=== PATIENT | female | born 1985 | race Caucasian/White ===

== ENCOUNTER 2017-07-06 12:02 | Inpatient (IN) | payer OTHER, SELFPAY ==
[2017-07-06 12:03] VITALS: BP 98/67; PULSE 128; RESP 16; TEMP 38.3; O2SAT 99; BMI 26.6
--- NOTE | 2017-07-06 12:28 | CT_ITS ---
STUDY: CT SOFT TISSUE NECK WITH CONTRAST REASON FOR EXAM: Female, 31 years old. Pharyngitis, dizziness negative for strep sore throat RADIATION DOSAGE (If Supplied By Facility): CTDIvol = ( 18.63 ) mGy, DLP = ( 553.65 ) mGycm TECHNIQUE: The patient was scanned in a multi-detector CT scanner. High resolution transaxial imaging was performed following intravenous administration of 75 ml of Isovue 370 contrast material. Sagittal and coronal images were reconstructed. Individualized dose optimization techniques were used for this CT. COMPARISON: None. FINDINGS: Normal bilateral parotid glands. Normal bilateral [employer] spaces. Normal bilateral parapharyngeal spaces. There is enlargement of the bilateral jugular digastric lymph nodes on the right side measuring 2.2 x 1.4 cm on the left side measuring 1.5 x 1.3 cm. There is hypertrophy of the lingual tonsils. Normal visualized nasopharynx. Normal retropharyngeal space. Normal perivertebral space. There is an enlarged appearance of the bilateral tonsils including the uvula. There is a vague focus of low attenuation within the right side of the partial tonsils without significant enhancement that may represent a small rounded glandular space versus early developing abscess. The tonsils are fairly symmetric. The visualized tongue, tongue base and oropharynx are normal. There are a few nonspecific small cervical space lymph nodes. Normal epiglottis, bilateral vallecula and hypopharynx. The pre-epiglottic and paraglottic adipose spaces are normal. Normal visualized bilateral piriform sinuses, aryepiglottic folds, vocal cords, and arytenoid-cricoid articulations. Normal subglottic trachea. Normal bilateral lobes of the thyroid gland. Normal visualized pulmonary apices. Normal visualized paranasal sinuses. Normal visualized cervical spine. CT/Soft Tissue Neck WITH Contrast IMPRESSION: Findings are consistent with bilateral tonsillitis with possible small developing abscess measuring 4.6 mm on the right side. There is reactive appearing lymphadenopathy. Electronically Signed: Brittani Bullock MD at 14:14 EST Tel , Service support ,
[2017-07-06] MEDS: Ketorolac 30 MG/ML Syringe IV (12:48)
[2017-07-06] MEDS: 0.9% Normal Saline 1,000 ML 999 ML IV (12:48)
[2017-07-06 12:59] LABS: Hematocrit 40.3 % (37-47); Hemoglobin 13.5 g/dl (12.0-15.0); Mean Corp Hgb Conc 33.5 g/gl (32-36); Mean Corpuscular Volume 89.6 fL (81-99); Mean Platelet Vol. 9.8 fl (6.2-12.0); Platelet Count 237 K/mm3 (150-450); RBC Distribution Width CV 13.5 % (11.6-14.6)
[2017-07-06 13:00] LABS: Scan Indicated on CBC? Y/N NO
[2017-07-06 13:11] LABS: Anion Gap 7 (5-15); BUN 7 mg/dL (7-18); BUN/Creat Ratio 8.5 RATIO (10-20); Calcium,Total 8.7 mg/dL (8.5-10.1); Chloride 102 mmol/L (98-107); Creatinine, Serum 0.83 mg/dL (0.55-1.02); EST Glomerular Filtration Rate 85 mL/min (>60); Est Glom Filt Rate - Afr Amer 103 mL/min (>60); Estimated Creatinine Clearance 91.94 ml/min; Glucose 98 mg/dL (74-106); Potassium 3.4 mmol/L (3.5-5.1); Sodium Level 136 mmol/L (136-145)
[2017-07-06 13:20] LABS: Pregnancy, Serum, hCG Quali. NEGATIVE Negative (0-9 Nonpreg)
[2017-07-06 13:43] LABS: Internal QC Validated? YES +Cl - CLEAR BKGD; Monotest Negative (Negative)
--- NOTE | 2017-07-06 15:09 | ED.VISSUMM ---
- ER Visit Summary Date of Service: 07/06/17 Chief Complaint: Sore throat History of Present Illness: The patient is a 31 F who presents with a sore throat. It began yesterday. She also complains of fever and chills. No congestion or rhinorrhea. She does complain of muscle aches and joint aches. She states she has a stiff neck but I can move it. Was initially seen at the [facility]. She had a negative rapid strep. Given her tachycardia she was advised to be evaluated here in the emergency department. Physical Examination: T- 100.9 blood pressure 98/67 heart rate 128 respiratory rate 16 Patient does have posterior oropharyngeal erythema with bilateral tonsillar enlargement bilateral exudates bilateral erythema. No uvular deviation. No trismus. Normal voice. Fine heart regular rhythm tachycardia Lungs are clear Abdomen soft Neck supple no meningismus Test Results: Laboratory studies notable for white blood cell count 22,000. negative. [place] screen negative. CT of the soft tissue of the neck shows bilateral tonsillitis and a small developing 4.6 mm right peritonsillar abscess. Emergency Department Course and Treatment: Patient was treated with IV fluids and Toradol. At the time of this dictation lactic acid and blood cultures are currently pending. IV Unasyn has been ordered as well. I did speak to Dr. Avalos will see the patient in consult and patient will be admitted to the hospitalist service. Treatment Plan: [] Disposition: Admit Impression: Peritonsillar abscess Pharyngitis This note was generated with [employer] dictation software. It may contain incorrect words, spelling, and punctuation that were not noted in review of the chart prior to signing ED Disposition - Plan for ED Patient: Chief Complaint: Sore Throat Referrals: Care Physician,No Primary [Primary Care Provider] -
[2017-07-06 15:10] VITALS: BP 112/74; PULSE 104; RESP 15; O2SAT 99
[2017-07-06 15:11] VITALS: TEMP 36.9
--- NOTE | 2017-07-06 15:12 | ED.DCSUM_ITS ---
- ER Visit Summary Date of Service: 07/06/17 Chief Complaint: Sore throat History of Present Illness: The patient is a 31 F who presents with a sore throat. It began yesterday. She also complains of fever and chills. No congestion or rhinorrhea. She does complain of muscle aches and joint aches. She states she has a stiff neck but I can move it. Was initially seen at the [facility]. She had a negative rapid strep. Given her tachycardia she was advised to be evaluated here in the emergency department. Physical Examination: T- 100.9 blood pressure 98/67 heart rate 128 respiratory rate 16 Patient does have posterior oropharyngeal erythema with bilateral tonsillar enlargement bilateral exudates bilateral erythema. No uvular deviation. No trismus. Normal voice. Fine heart regular rhythm tachycardia Lungs are clear Abdomen soft Neck supple no meningismus Test Results: Laboratory studies notable for white blood cell count 22,000. negative. [place] screen negative. CT of the soft tissue of the neck shows bilateral tonsillitis and a small developing 4.6 mm right peritonsillar abscess. Emergency Department Course and Treatment: Patient was treated with IV fluids and Toradol. At the time of this dictation lactic acid and blood cultures are currently pending. IV Unasyn has been ordered as well. I did speak to Dr. Avalos will see the patient in consult and patient will be admitted to the hospitalist service. Treatment Plan: [] Disposition: Admit Impression: Peritonsillar abscess Pharyngitis This note was generated with [employer] dictation software. It may contain incorrect words, spelling, and punctuation that were not noted in review of the chart prior to signing ED Disposition - Plan for ED Patient: Chief Complaint: Sore Throat Referrals: Care Physician,No Primary [Primary Care Provider] -
--- NOTE | 2017-07-06 15:59 | NURSING ---
207 PERITONSILAR ABCESS, TACHYCARDIA TERELETSKY
[2017-07-06 16:00] VITALS: BMI 26.6
[2017-07-06 16:15] VITALS: BMI 26.3
[2017-07-06 16:18] VITALS: BP 106/64; PULSE 98; RESP 16; TEMP 37.2; O2SAT 98
[2017-07-06] MEDS: 0.9% Normal Saline 1,000 ML 150 ML IV ×2 (17:10→22:35)
[2017-07-06 17:21] LABS: Lactic Acid 0.9 mmol/L (0.4-2.0)
[2017-07-06] MEDS: HYDROcodone Bitartrate/Apap 5/325 Tablet PO (17:48)
[2017-07-06 19:45] VITALS: BP 118/67; PULSE 93; RESP 16; TEMP 37.2; O2SAT 98
--- NOTE | 2017-07-06 21:51 | PCM.HP.STD ---
Problem List (1) Tachycardia Status: Acute (2) Lightheadedness Status: Acute History of Present Illness Date of Admission: 07/06/17 Chief Complaint: Tachycardia, lightheadedness The patient is a 31 year old F seen in the emergency room at [facility] with complaints of sore throat, malaise, and lightheadedness. She is noted to be tachycardic and rapid strep test was negative for tonsillitis and the patient was referred to the emergency room for further evaluation. On examination, patient was noted to have enlarged tonsils which were reddened along with evidence of exudate, she was noted to be tachycardic with a pulse rate of 130, patient denied any purulent sputum production but she stated that she had chills and fever up to 102 degrees today. She also stated that she felt lightheaded and had generalized body aches. Patient denied any purulent sputum production or cough. Workup in the emergency room included labs which showed an elevated white blood cell count at 22,000, potassium was 3.4, CT of the neck was obtained which showed evidence of tonsillitis and also a developing right peritonsillar abscess of 4.6 mm. Patient was given IV Unasyn in the emergency room, ENT was contacted and will follow up with the patient after admission, patient was admitted for peritonsillar abscess and tachycardia. 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 Denies: Anorexia, Night Sweats, Weakness, Weight Change, Fatigue Eyes: Denies: Blurred vision, Cataracts, Conjunctivae Inflammation, Double vision, Drainage HEENT: Reports: Sore Throat. Denies: Difficulty Hearing, Difficulty Swallowing, Dysphasia, Ear Pain, Eye Pain, Head Aches, Hearing Changes, Nasal bleeding, Nasal Congestion, Sinus Congestion Cardiovascular: Reports: Light Headedness. Denies: Chest Pain, Claudication, Chest Pressure, Chest Tightness, Edema, Heaviness, Palpitations Respiratory: Denies: Cough, Hemoptysis, Pleuritic Pain, Shortness of Breath, Shortness of breath at rest, Shortness of breath upon exertion, Sputum production, Wheezing Gastrointestinal: Denies: Abdominal Pain, Constipation, Diarrhea, Hematemesis, Hematochezia, Nausea, Melena, Vomiting Genitourinary: Denies: Dysuria, Frequency, Hematuria, Hesitancy, Urgency Gynecological: Denies: Breast symptoms Musculoskeletal: Denies: Back Pain, Foot Pain, Hand Pain, Joint Pain, Joint stiffness, Joint swelling, Joint Tenderness, Leg Pain, Neck Pain, Shoulder Pain Skin: Denies: Dryness, Jaundice, Pruritis, Rash Neurological: Denies: Balance problems, Blurred vision, Double vision, Slurred speech, Difficulty swallowing, Focal weakness, Headaches, Incoordination, Numbness, Tingling Psychiatric: Denies: Anxiety, Depression, Homicidal Ideations, Suicidal Ideations Endocrine: Denies: Change in Body Habitus, Heat/ Cold Intolerance, Polydipsia, Polyuria Hematologic/ Lymphatic: Denies: Adenopathy, Anemia, Easy Bruising, Easy Bleeding, Petechiae, Purpura VTE Information - Inpt Only VTE Present on Admission: No VTE Mechan Device Prophylaxis: None VTE Pharm Prophylaxis ordered?: No Reason prophylaxis not ordered:: Treatment Not Indicated - low risk for VTE Patient Problems: Active and Suspected Problems Tachycardia (Acute) Lightheadedness (Acute) - Physical Exam General: Alert, Oriented x3, Cooperative, No apparent distress, Well developed, Well nourished HEENT: Atraumatic, PERRLA, EOMI, Normocephalic Oral: Moist Mucosa, - - Enlarged tonsils with exudate Neck: Supple, No JVD, Negative Carotid Bruits, No Nuchal Rigidity, Trachea Midline, Thyroid Normal Size and Texture Lungs: Clear to auscultation, Normal air movement, No rhonchi, No wheeze, No rales Cardiovascular: Regular rate, Regular Rhythm, Normal S1, Normal S2, No murmurs, No Ectopic Activity, PMI Normal, No rub noted, Tachycardic Abdomen: Bowel Sounds Present, Soft, Non Tender, Non-Distended, No hernias noted Extremities: No clubbing, No cyanosis, No edema, Capillary Refill Less than 3 Seconds Skin: No rashes, No breakdown Musculoskeletal: No Tenderness to Palpation of Joints or Extremities, No Muscle Wasting Neurological: Cranial nerves II-XII grossly intact, Neuro grossly intact, Muscle tone normal, Sensory exam intact to light touch and pain, Coordination normal Psych/Mental Status: Normal Affect, Appropriate, Alert and oriented to time, place, person, mood and affect Vital Signs Temp Pulse Resp BP Pulse Ox 98.9 F 98 16 106/64 98 07/06/17 16:18 07/06/17 16:18 07/06/17 16:18 07/06/17 16:18 07/06/17 16:18 Oxygen Delivery Method Room Air Weight: 73.936 kg Body Mass Index (BMI) 26.3 Intake and Output for Last 24 Hours 07/04/17 07/05/17 07/06/17 23:59 23:59 23:59 Intake Total 150 / 150 Balance 150 / 150 Assessment/Plan Active and Suspected Problems Tachycardia (Acute) Lightheadedness (Acute) #1 right peritonsillar abscess-patient will be admitted to [facility], she will be given IV fluids, IV Unasyn, she will be seen by ENT #2 severe tonsillitis-most probably is strep, throat culture was obtained in the emergency room, treatment as above #3 hypokalemia-patient will be given oral potassium and BMP will be rechecked #4 tachycardia-secondary to acute severe tonsillitis with right peritonsillar abscess-patient will be given IV fluids and monitored without telemetry Code Visit Inpatient E&M: 08500 Init Hosp L3
--- NOTE | 2017-07-06 22:01 | HP.PCM_ITS ---
Problem List (1) Tachycardia Status: Acute (2) Lightheadedness Status: Acute History of Present Illness Date of Admission: 07/06/17 Chief Complaint: Tachycardia, lightheadedness The patient is a 31 year old F seen in the emergency room at [facility] with complaints of sore throat , malaise, and lightheadedness. She is noted to be tachycardic and rapid strep test was negative for tonsillitis and the patient was referred to the emergency room for further evaluation. On examination, patient was noted to have enlarged tonsils which were reddened along with evidence of exudate, she was noted to be tachycardic with a pulse rate of 130, patient denied any purulent sputum production but she stated that she had chills and fever up to 102 degrees today. She also stated that she felt lightheaded and had generalized body aches. Patient denied any purulent sputum production or cough. Workup in the emergency room included labs which showed an elevated white blood cell count at 22,000, potassium was 3.4, CT of the neck was obtained which showed evidence of tonsillitis and also a developing right peritonsillar abscess of 4.6 mm. Patient was given IV Unasyn in the emergency room, ENT was contacted and will follow up with the patient after admission, patient was admitted for peritonsillar abscess and tachycardia. 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 Denies: Anorexia, Night Sweats, Weakness, Weight Change, Fatigue Eyes: Denies: Blurred vision, Cataracts, Conjunctivae Inflammation, Double vision, Drainage HEENT: Reports: Sore Throat. Denies: Difficulty Hearing, Difficulty Swallowing , Dysphasia, Ear Pain, Eye Pain, Head Aches, Hearing Changes, Nasal bleeding, Nasal Congestion, Sinus Congestion Cardiovascular: Reports: Light Headedness. Denies: Chest Pain, Claudication, Chest Pressure, Chest Tightness, Edema, Heaviness, Palpitations Respiratory: Denies: Cough, Hemoptysis, Pleuritic Pain, Shortness of Breath, Shortness of breath at rest, Shortness of breath upon exertion, Sputum production, Wheezing Gastrointestinal: Denies: Abdominal Pain, Constipation, Diarrhea, Hematemesis, Hematochezia, Nausea, Melena, Vomiting Genitourinary: Denies: Dysuria, Frequency, Hematuria, Hesitancy, Urgency Gynecological: Denies: Breast symptoms Musculoskeletal: Denies: Back Pain, Foot Pain, Hand Pain, Joint Pain, Joint stiffness, Joint swelling, Joint Tenderness, Leg Pain, Neck Pain, Shoulder Pain Skin: Denies: Dryness, Jaundice, Pruritis, Rash Neurological: Denies: Balance problems, Blurred vision, Double vision, Slurred speech, Difficulty swallowing, Focal weakness, Headaches, Incoordination, Numbness, Tingling Psychiatric: Denies: Anxiety, Depression, Homicidal Ideations, Suicidal Ideations Endocrine: Denies: Change in Body Habitus, Heat/ Cold Intolerance, Polydipsia, Polyuria Hematologic/ Lymphatic: Denies: Adenopathy, Anemia, Easy Bruising, Easy Bleeding , Petechiae, Purpura VTE Information - Inpt Only VTE Present on Admission: No VTE Mechan Device Prophylaxis: None VTE Pharm Prophylaxis ordered?: No Reason prophylaxis not ordered:: Treatment Not Indicated - low risk for VTE Patient Problems: Active and Suspected Problems Tachycardia (Acute) Lightheadedness (Acute) - Physical Exam General: Alert, Oriented x3, Cooperative, No apparent distress, Well developed, Well nourished HEENT: Atraumatic, PERRLA, EOMI, Normocephalic Oral: Moist Mucosa, - - Enlarged tonsils with exudate Neck: Supple, No JVD, Negative Carotid Bruits, No Nuchal Rigidity, Trachea Midline, Thyroid Normal Size and Texture Lungs: Clear to auscultation, Normal air movement, No rhonchi, No wheeze, No rales Cardiovascular: Regular rate, Regular Rhythm, Normal S1, Normal S2, No murmurs, No Ectopic Activity, PMI Normal, No rub noted, Tachycardic Abdomen: Bowel Sounds Present, Soft, Non Tender, Non-Distended, No hernias noted Extremities: No clubbing, No cyanosis, No edema, Capillary Refill Less than 3 Seconds Skin: No rashes, No breakdown Musculoskeletal: No Tenderness to Palpation of Joints or Extremities, No Muscle Wasting Neurological: Cranial nerves II-XII grossly intact, Neuro grossly intact, Muscle tone normal, Sensory exam intact to light touch and pain, Coordination normal Psych/Mental Status: Normal Affect, Appropriate, Alert and oriented to time, place, person, mood and affect Vital Signs Temp Pulse Resp BP Pulse Ox 98.9 F 98 16 106/64 98 07/06/17 16:18 07/06/17 16:18 07/06/17 16:18 07/06/17 16:18 07/06/17 16:18 Oxygen Delivery Method Room Air Weight: 73.936 kg Body Mass Index (BMI) 26.3 Intake and Output for Last 24 Hours 07/04/17 07/05/17 07/06/17 23:59 23:59 23:59 Intake Total 150 / 150 Balance 150 / 150 Assessment/Plan Active and Suspected Problems Tachycardia (Acute) Lightheadedness (Acute) #1 right peritonsillar abscess-patient will be admitted to [facility], she will be given IV fluids, IV Unasyn, she will be seen by ENT #2 severe tonsillitis-most probably is strep, throat culture was obtained in the emergency room, treatment as above #3 hypokalemia-patient will be given oral potassium and BMP will be rechecked #4 tachycardia-secondary to acute severe tonsillitis with right peritonsillar abscess-patient will be given IV fluids and monitored without telemetry Code Visit Inpatient E&M: 45675 Init Hosp L3
[2017-07-06 23:30] VITALS: BP 112/70; PULSE 104; RESP 16; TEMP 37.8; O2SAT 99
[2017-07-07] MEDS: HYDROcodone Bitartrate/Apap 5/325 Tablet PO ×4 (00:41→19:58)
[2017-07-07 00:42] VITALS: TEMP 38.1
[2017-07-07 05:24] VITALS: BP 108/62; PULSE 106; RESP 16; TEMP 37.6; O2SAT 99
[2017-07-07] MEDS: 0.9% Normal Saline 1,000 ML 150 ML IV ×3 (05:26→21:18)
[2017-07-07 06:58] LABS: Absolute Lymphocyte Count 1.45 X10^3/ul (0.83-4.51); Basophil# 0.02 X10^3/uL; Basophil% 0.1 % (0-1); Eosinophil# 0.04 X10^3/uL; Eosinophils% 0.2 % (0-5); Hematocrit 35.6 % (37-47); Hemoglobin 11.8 g/dl (12.0-15.0); Lymphocyte # 1.45 X10^3/ul (4.0); Lymphocyte % 7.5 % (19-41); Mean Corp Hgb Conc 33.1 g/gl (32-36); Mean Corpuscular Hgb 30.6 pg (27.0-32.0); Mean Corpuscular Volume 92.5 fL (81-99); Mean Platelet Vol. 10.1 fl (6.2-12.0); Monocyte# 1.67 X10^3/uL; Monocyte% 8.7 % (0-10); Neutrophil % 83.2 % (47-70); Platelet Count 178 K/mm3 (150-450); RBC Distribution Width CV 13.9 % (11.6-14.6); RBC Distribution Width SD 46.8 fl (35.1-43.9); Red Blood Count 3.85 M/mm3 (4.2-5.4); White Blood Count 19.2 K/mm3 (4.4-11.0)
[2017-07-07 07:01] LABS: Differential Indicated SCAN CRITERIA MET; POSITIVE COUNT NO; POSITIVE DIFFERENTIAL YES; POSITIVE MORPHOLOGY NO
[2017-07-07 07:15] LABS: Anion Gap 6 (5-15); BUN 6 mg/dL (7-18); BUN/Creat Ratio 9.3 RATIO (10-20); Calcium,Total 7.9 mg/dL (8.5-10.1); Chloride 106 mmol/L (98-107); Creatinine, Serum 0.64 mg/dL (0.55-1.02); EST Glomerular Filtration Rate 114 mL/min (>60); Est Glom Filt Rate - Afr Amer 138 mL/min (>60); Estimated Creatinine Clearance 119.23 ml/min; Glucose 91 mg/dL (74-106); Potassium 3.8 mmol/L (3.5-5.1); Sodium Level 139 mmol/L (136-145)
[2017-07-07 08:09] VITALS: BP 104/62; PULSE 99; RESP 18; TEMP 37.5; O2SAT 97
[2017-07-07] MEDS: Acetaminophen 325 MG Tablet 650 MG PO ×2 (11:23→17:23)
--- NOTE | 2017-07-07 12:11 | PCM.PN.HOSP ---
Patient Problems: Active and Suspected Problems Tachycardia (Acute) Lightheadedness (Acute) Subjective: Still with a sore throat and trouble swallowing. No shortness of breath. Vitals/I&O's: Vital Signs Temp Pulse Resp BP Pulse Ox 37.5 C H 99 18 104/62 97 07/07/17 08:09 07/07/17 08:09 07/07/17 08:09 07/07/17 08:09 07/07/17 08:09 Oxygen Delivery Method Room Air Weight: 73.936 kg Body Mass Index (BMI) 26.3 Intake and Output for Last 24 Hours 07/05/17 07/06/17 07/07/17 23:59 23:59 23:59 Intake Total 1212 / 1212 1247 / 1247 Balance 1212 / 1212 1247 / 1247 General: Alert, Cooperative, No apparent distress HEENT: Atraumatic, Normocephalic Neck: Thyroid Normal Size and Texture, - - Tender left submandibular lymphadenopathy Lungs: Clear to auscultation, Normal air movement, No rhonchi, No wheeze Cardiovascular: Regular rate, Regular Rhythm, Normal S1, Normal S2 Abdomen: Bowel Sounds Present, Soft, Non Tender, Non-Distended, No Hepato-splenomegaly Extremities: No edema, No Calf Tenderness Laboratory Results 07/07/17 05:50: WBC 19.2 H, RBC 3.85 L, Hgb 11.8 L, Hct 35.6 L, MCV 92.5, MCH 30.6, MCHC 33.1, RDW 13.9, RDW Differential 46.8 H, Plt Count 178, MPV 10.1, Immature Gran % (Auto) 0.300, Neut % (Auto) 83.2 H, Lymph % (Auto) 7.5 L, [place] % (Auto) 8.7, Eos % (Auto) 0.2, Baso % (Auto) 0.1, Absolute Neuts (auto) 16.0 H, Absolute Lymphs (auto) 1.45, Total Counted Not Reportable 07/07/17 05:50: Sodium Cancelled, Potassium Cancelled, Chloride Cancelled, Carbon Dioxide Cancelled, Anion Gap Cancelled, BUN Cancelled, Creatinine Cancelled, Estim Creat Clear Calc Cancelled, Est GFR (MDRD) Af Amer Cancelled, Est GFR (MDRD) Non-Af Cancelled, BUN/Creatinine Ratio Cancelled, Glucose Cancelled, Calcium Cancelled 07/07/17 06:45: Sodium 139, Potassium 3.8, Chloride 106, Carbon Dioxide 27.0, Anion Gap 6, BUN 6 L, Creatinine 0.64, Estim Creat Clear Calc 119.23, Est GFR (MDRD) Af Amer 138, Est GFR (MDRD) Non-Af 114, BUN/Creatinine Ratio 9.3 L, Glucose 91, Calcium 7.9 L Current Medications Acetaminophen (Tylenol) 650 mg PO Q6H PRN PRN PRN Reason: Mild Pain (1-3)/Temp > 100.7 F Last Admin: 07/07/17 11:23 Dose: 650 mg Hydrocodone Bitart/Acetaminophen ([place] 5mg-325mg) 2 tablet PO Q6H PRN PRN PRN Reason: SEVERE PAIN (6-10/10) Last Admin: 07/07/17 07:21 Dose: 2 tablet Sodium Chloride () 1,000 mls @ 150 mls/hr IV .[id number] [facility] Last Admin: 07/07/17 05:26 Dose: 150 mls/hr Ampicillin Sodium/Sulbactam (Sodium 3 gm/ Sodium Chloride) 112 mls @ 150 mls/hr IV Q6 [facility] Last Admin: 07/07/17 11:24 Dose: 150 mls/hr Nutritional Formula (Lactose Free) (Ensure Enlive) 120 ml PO 4X/DAY [facility] Last Admin: 07/07/17 08:11 Dose: 120 ml Sodium Chloride () 5 - 30 ml IV UD PRN PRN Reason: SALINE FLUSH Assessment/Plan Active and Suspected Problems Tachycardia (Acute) Lightheadedness (Acute) 1. Posterior pharyngeal abscess Secondary to pharyngitis. Monospot and throat culture pending Continue with Unasyn Otolaryngology to evaluate. No evidence of airway compromise at this time. 2. Sepsis On admission Clinically improving. Code Visit Inpatient E&M: 69395 Subs Hosp L2
--- NOTE | 2017-07-07 12:15 | PN_ITS ---
Patient Problems: Active and Suspected Problems Tachycardia (Acute) Lightheadedness (Acute) Subjective: Still with a sore throat and trouble swallowing. No shortness of breath. Vitals/I&O's: Vital Signs Temp Pulse Resp BP Pulse Ox 37.5 C H 99 18 104/62 97 07/07/17 08:09 07/07/17 08:09 07/07/17 08:09 07/07/17 08:09 07/07/17 08:09 Oxygen Delivery Method Room Air Weight: 73.936 kg Body Mass Index (BMI) 26.3 Intake and Output for Last 24 Hours 07/05/17 07/06/17 07/07/17 23:59 23:59 23:59 Intake Total 1212 / 1212 1247 / 1247 Balance 1212 / 1212 1247 / 1247 General: Alert, Cooperative, No apparent distress HEENT: Atraumatic, Normocephalic Neck: Thyroid Normal Size and Texture, - - Tender left submandibular lymphadenopathy Lungs: Clear to auscultation, Normal air movement, No rhonchi, No wheeze Cardiovascular: Regular rate, Regular Rhythm, Normal S1, Normal S2 Abdomen: Bowel Sounds Present, Soft, Non Tender, Non-Distended, No Hepato- splenomegaly Extremities: No edema, No Calf Tenderness Laboratory Results 07/07/17 05:50: WBC 19.2 H, RBC 3.85 L, Hgb 11.8 L, Hct 35.6 L, MCV 92.5, MCH 30.6, MCHC 33.1, RDW 13.9, RDW Differential 46.8 H, Plt Count 178, MPV 10.1, Immature Gran % (Auto) 0.300, Neut % (Auto) 83.2 H, Lymph % (Auto) 7.5 L, Adams % (Auto) 8.7, Eos % (Auto) 0.2, Baso % (Auto) 0.1, Absolute Neuts (auto) 16.0 H , Absolute Lymphs (auto) 1.45, Total Counted Not Reportable 07/07/17 05:50: Sodium Cancelled, Potassium Cancelled, Chloride Cancelled, Carbon Dioxide Cancelled, Anion Gap Cancelled, BUN Cancelled, Creatinine Cancelled, Estim Creat Clear Calc Cancelled, Est GFR (MDRD) Af Amer Cancelled, Est GFR (MDRD) Non-Af Cancelled, BUN/Creatinine Ratio Cancelled, Glucose Cancelled, Calcium Cancelled 07/07/17 06:45: Sodium 139, Potassium 3.8, Chloride 106, Carbon Dioxide 27.0, Anion Gap 6, BUN 6 L, Creatinine 0.64, Estim Creat Clear Calc 119.23, Est GFR ( MDRD) Af Amer 138, Est GFR (MDRD) Non-Af 114, BUN/Creatinine Ratio 9.3 L, Glucose 91, Calcium 7.9 L Current Medications Acetaminophen (Tylenol) 650 mg PO Q6H PRN PRN PRN Reason: Mild Pain (1-3)/Temp > 100.7 F Last Admin: 07/07/17 11:23 Dose: 650 mg Hydrocodone Bitart/Acetaminophen ([place] 5mg-325mg) 2 tablet PO Q6H PRN PRN PRN Reason: SEVERE PAIN (6-10/10) Last Admin: 07/07/17 07:21 Dose: 2 tablet Sodium Chloride () 1,000 mls @ 150 mls/hr IV .Q6H40M [facility] Last Admin: 07/07/17 05:26 Dose: 150 mls/hr Ampicillin Sodium/Sulbactam (Sodium 3 gm/ Sodium Chloride) 112 mls @ 150 mls/ hr IV Q6 [facility] Last Admin: 07/07/17 11:24 Dose: 150 mls/hr Nutritional Formula (Lactose Free) (Ensure Enlive) 120 ml PO 4X/DAY [facility] Last Admin: 07/07/17 08:11 Dose: 120 ml Sodium Chloride () 5 - 30 ml IV UD PRN PRN Reason: SALINE FLUSH Assessment/Plan Active and Suspected Problems Tachycardia (Acute) Lightheadedness (Acute) 1. Posterior pharyngeal abscess * Secondary to pharyngitis. * Monospot and throat culture pending * Continue with Unasyn * Otolaryngology to evaluate. * No evidence of airway compromise at this time. 2. Sepsis * On admission * Clinically improving. Code Visit Inpatient E&M: 55092 Subs Hosp L2
--- NOTE | 2017-07-07 13:01 | CASEMGMT ---
PASQUALE CM chart review: peritonsilr abcess. Continues on IVF, IV antibiotics. Noted no PCP listed. [facility] innetwork list given to pt. She will f/u at home. Pt states she will have transportation to physician visits and has prescription coverage.No dc needs identified @ this time. Trisha OLIVASN RN ACM
[2017-07-07 13:57] VITALS: BP 102/59; PULSE 91; RESP 18; TEMP 36.9; O2SAT 100
--- NOTE | 2017-07-07 15:04 | CON.PCM_ITS ---
Problem List (1) Acute bacterial tonsillitis Status: Acute Reason for Consult Date of Consultation: 07/07/17 Reason for Consultation: acute tonsillitis, abscess History of Present Illness: The patient is a 31 year old F who presented to the ER with cute sore throat and progressive dysphagia. She was found to have exudative tonsillitis with an negative rapid Strep. She reports progressively worsening episodes of tonsillitis over the last several year and reports 6 or more occurrences year. Tis is the worst episode that she has had. She denies sick contacts in the home. She describes her throat adiel as severe, limiting her tolerance of oral intake, but is able to swallow her own secretions. She denies shortness of breath or hoarseness. She reports that her pain is worse today, but relieved with pain medication at the bedside. She has had a sore throat for about 3 days now.[] Past Medical History Allergies No Known Allergies Allergy (Verified 05/10/16 11:41) Home Medications: Ambulatory Orders Medication Instructions Recorded NK [NK] 07/06/17 Surgical History: no surgical history Psychiatric History: No pertinent psych hx [employer] History: No pertinent [employer] history Lives: With Family Smoking Status: Never smoker Tobacco Use: Non-smoker Alcohol: None Drugs: None - *Family History Maternal History Items: No pertinent history Paternal History Items: No pertinent history Review of Systems Constitutional: Reports: Fever, Malaise. Denies: Chills, Night Sweats Eyes: Denies: Blurred vision, Cataracts, Double vision, Pain, Vision Change HEENT: Reports: Difficulty Swallowing, Sore Throat. Denies: Difficulty Hearing , Ear Pain, Eye Pain, Hard of Hearing, Nasal Congestion, Sinus Drainage Cardiovascular: Denies: Chest Pain, Chest Pressure, Chest Tightness Respiratory: Denies: Cough, Hemoptysis, Shortness of breath upon exertion Gastrointestinal: Denies: Abdominal Pain, Diarrhea Genitourinary: Denies: Dysuria Musculoskeletal: Reports: Neck Pain Skin: Denies: Dryness, Lesions, Pruritis Neurological: Reports: Difficulty swallowing. Denies: Balance problems, Blurred vision Psychiatric: Denies: Anxiety, Depression Hematologic/ Lymphatic: Reports: Adenopathy. Denies: Easy Bruising, Easy Bleeding Patient Problems: Active and Suspected Problems Tachycardia (Acute) Lightheadedness (Acute) Acute bacterial tonsillitis (Acute) - Physical Exam General: Alert, Oriented x3, Cooperative HEENT: Atraumatic, PERRLA, EOMI, Normocephalic, TM's Clear, EAC Clear Oral: Moist Mucosa, - - 4+ tonsiller ypertrophy with exudates, symmetric without bulging or fluid collection Neck: Trachea Midline, Thyroid Normal Size and Texture, - - tender bilateral adenopathy Lungs: Clear to auscultation, Normal air movement, No rhonchi, No wheeze Cardiovascular: Regular rate, Regular Rhythm Extremities: No clubbing, No cyanosis, No edema Skin: No rashes, No breakdown Lymphatic: Cervical Adenopathy Neurological: Cranial nerves II-XII grossly intact Psych/Mental Status: Normal Affect, Appropriate, Alert and oriented to time, place, person, mood and affect Vital Signs Temp Pulse Resp BP Pulse Ox 98.4 F 91 18 102/59 L 100 07/07/17 13:57 07/07/17 13:57 07/07/17 13:57 07/07/17 13:57 07/07/17 13:57 Oxygen Delivery Method Room Air Weight: 73.936 kg Body Mass Index (BMI) 26.3 Intake and Output for Last 24 Hours 07/05/17 07/06/17 07/07/17 23:59 23:59 23:59 Intake Total 1212 / 1212 1630 / 1630 Balance 1212 / 1212 1630 / 1630 Laboratory Tests Past 24 Hrs 07/07/17 07/07/17 07/07/17 05:50 05:50 06:45 WBC 19.2 H RBC 3.85 L Hgb 11.8 L Hct 35.6 L MCV 92.5 MCH 30.6 MCHC 33.1 RDW 13.9 RDW Differential 46.8 H Plt Count 178 MPV 10.1 Immature Gran % (Auto) 0.300 Neut % (Auto) 83.2 H Lymph % (Auto) 7.5 L [place] % (Auto) 8.7 Eos % (Auto) 0.2 Baso % (Auto) 0.1 Absolute Neuts (auto) 16.0 H Absolute Lymphs (auto) 1.45 Total Counted Not Reportable Sodium Cancelled 139 Potassium Cancelled 3.8 Chloride Cancelled 106 Carbon Dioxide Cancelled 27.0 Anion Gap Cancelled 6 BUN Cancelled 6 L Creatinine Cancelled 0.64 Estim Creat Clear Calc Cancelled 119.23 Est GFR (MDRD) Af Amer Cancelled 138 Est GFR (MDRD) Non-Af Cancelled 114 BUN/Creatinine Ratio Cancelled 9.3 L Glucose Cancelled 91 Calcium Cancelled 7.9 L Assessment/Plan Active and Suspected Problems Tachycardia (Acute) Lightheadedness (Acute) Acute bacterial tonsillitis (Acute) 31 year old female with frequent tonsillitis. Group A Strep positive on culture with CT showing very small abscess. Observation for clinical improvement on IV antibiotic is advised. I see no abscess amenable to bedside drainage at this time, but may appear through course of observation. I have discussed treatment options with medical management advised at this time, but if fails to improve, aspiration or tonsillectomy reviewed. Given her frequent complaints and worsening presentation, tonsillectomy as an outpatient is also discussed. I will continue to follow her hospital course for disposition and progress.
[2017-07-07 20:32] VITALS: BP 103/54; PULSE 89; RESP 18; TEMP 37.1; O2SAT 100
[2017-07-08] MEDS: HYDROcodone Bitartrate/Apap 5/325 Tablet PO ×2 (02:28→15:43)
[2017-07-08 02:33] VITALS: BP 97/38; PULSE 91; RESP 16; TEMP 36.8; O2SAT 99
[2017-07-08] MEDS: 0.9% Normal Saline 1,000 ML 150 ML IV ×2 (04:47→11:31)
[2017-07-08] MEDS: Ondansetron 4 MG/2 ML Vial IV ×3 (05:06→17:57)
[2017-07-08 09:13] VITALS: BP 104/60; PULSE 81; RESP 16; TEMP 36.9; O2SAT 99
[2017-07-08] MEDS: Acetaminophen 325 MG Tablet 650 MG PO (09:18)
--- NOTE | 2017-07-08 09:22 | PCM.PN.HOSP ---
Patient Problems: Active and Suspected Problems Tachycardia (Acute) Lightheadedness (Acute) Acute bacterial tonsillitis (Acute) Subjective: Feeling slightly better but still with trouble swallowing. No shortness of breath. Vitals/I&O's: Vital Signs Temp Pulse Resp BP Pulse Ox 36.9 C 81 16 104/60 99 07/08/17 09:13 07/08/17 09:13 07/08/17 09:13 07/08/17 09:13 07/08/17 09:13 Oxygen Delivery Method Room Air Weight: 73.936 kg Body Mass Index (BMI) 26.3 Intake and Output for Last 24 Hours 07/06/17 07/07/17 07/08/17 23:59 23:59 23:59 Intake Total 1212 / 1212 2390 / 2390 1892 189 Balance 1212 / 1212 2390 / 2390 1892 General: Alert, Cooperative, No apparent distress HEENT: Atraumatic, Normocephalic Oral: Moist Mucosa, No Gingival or Mucosal Lesions/ Ulcerations, - - Unable to visualize posterior pharynx Neck: - - biLateral tender submandibular lymphadenopathy Lungs: Clear to auscultation, Normal air movement, No rhonchi, No wheeze Cardiovascular: Regular rate, Regular Rhythm, Normal S1, Normal S2, No murmurs Abdomen: Bowel Sounds Present, Soft, Non Tender, Non-Distended, No Hepato-splenomegaly Extremities: No edema, No Calf Tenderness Psych/Mental Status: Normal Affect, Appropriate Current Medications Acetaminophen (Tylenol) 650 mg PO Q6H PRN PRN PRN Reason: Mild Pain (1-3)/Temp > 100.7 F Last Admin: 07/08/17 09:18 Dose: 650 mg Hydrocodone Bitart/Acetaminophen ([place] 5mg-325mg) 2 tablet PO Q6H PRN PRN PRN Reason: SEVERE PAIN (6-10/10) Last Admin: 07/08/17 02:28 Dose: 2 tablet Sodium Chloride () 1,000 mls @ 150 mls/hr IV .Q6H40M [facility] Last Admin: 07/08/17 04:47 Dose: 150 mls/hr Ampicillin Sodium/Sulbactam (Sodium 3 gm/ Sodium Chloride) 112 mls @ 150 mls/hr IV Q6 [facility] Last Admin: 07/08/17 05:06 Dose: 150 mls/hr Nutritional Formula (Lactose Free) (Ensure Enlive) 120 ml PO 4X/DAY [facility] Last Admin: 07/08/17 09:18 Dose: 120 ml Ondansetron HCl (Zofran) 4 mg IV Q6H PRN PRN PRN Reason: NAUSEA/VOMITING Last Admin: 07/08/17 05:06 Dose: 4 mg Sodium Chloride () 5 - 30 ml IV UD PRN PRN Reason: SALINE FLUSH Assessment/Plan Active and Suspected Problems Tachycardia (Acute) Lightheadedness (Acute) Acute bacterial tonsillitis (Acute) 1. Posterior pharyngeal abscess and pharyngitis Secondary to pharyngitis. Monospot and throat culture positive for group A strep Continue with Unasyn Otolaryngology to recommends conservative management at this time. No evidence of airway compromise at this time. 2. Sepsis On admission Clinically improving. This note was generated with [employer] dictation software. It may contain incorrect words, spelling, and punctuation that were not noted in checking the note before signing. Code Visit Inpatient E&M: 05493 Subs Hosp L2
[2017-07-08] MEDS: 0.9% NaCl Peripheral Flush Adult/Peds IV (11:27)
[2017-07-08 15:35] VITALS: BP 106/67; PULSE 84; RESP 16; TEMP 36.8; O2SAT 99
--- NOTE | 2017-07-08 17:39 | PCM.PROGNOTE ---
Patient Problems: Active and Suspected Problems Tachycardia (Acute) Lightheadedness (Acute) Acute bacterial tonsillitis (Acute) Subjective: She reports that her pain is improved and she is able to tolerate oral fluid intake today. She still has some right neck tenderness. She feels that she is ready to go home. Objective: Well appearing, taking in soft foods and fluids at bedside. - Physical Exam General: Alert, Oriented x3, Cooperative, No apparent distress HEENT: Atraumatic, PERRLA, EOMI, Normocephalic Oral: Moist Mucosa, - - tonsillar exudates reduced, tonsils 2+ in size without asymmetry or bulging Neck: Trachea Midline, Thyroid Normal Size and Texture, - - tender adenopathy on right, reduced from previous Lungs: Normal air movement Cardiovascular: Regular rate, Regular Rhythm Skin: No rashes, No breakdown Lymphatic: Cervical Adenopathy Psych/Mental Status: Normal Affect, Alert and oriented to time, place, person, mood and affect Vital Signs Temp Pulse Resp BP Pulse Ox 98.3 F 84 16 106/67 99 07/08/17 15:35 07/08/17 15:35 07/08/17 15:35 07/08/17 15:35 07/08/17 15:35 Oxygen Delivery Method Room Air Weight: 73.936 kg Body Mass Index (BMI) 26.3 Intake and Output for Last 24 Hours 07/06/17 07/07/17 07/08/17 23:59 23:59 23:59 Intake Total 1212 / 1212 2390 / 2390 2913 / 2913 Output Total 200 / 200 Balance 1212 / 1212 2390 / 2390 2713 / 2713 Assessment/Plan Active and Suspected Problems Tachycardia (Acute) Lightheadedness (Acute) Acute bacterial tonsillitis (Acute) She is showing a good response to medical management. We discussed that home going on oral antibiotic therapy is advised at this time. We also discussed the possibility of tonsillectomy given her frequent and worsening occurrences and that this is best done in a well state after her acute episode has resolved. She is agreeable to this plan and I would like to see her in the office in 10 days. She may call [phone] to schedule an appointment.
--- NOTE | 2017-07-08 18:06 | PCM.DC ---
- Discharge Diagnoses Current Active Problems: Current Active and Chronic Problems Tachycardia (Acute) Lightheadedness (Acute) Acute bacterial tonsillitis (Acute) You will use the following diet at home:: Other - liquids Your food should be the consistency of: Regular Your liquids should be the consistency of: Regular/Thin Discharge Activity: Return to Normal Activity Call your doctor if you observe: Fever of 101 or Higher, - - increased trouble swallowing. increased neck pain. Allergies/Adverse Reactions: Allergies No Known Allergies Allergy (Verified 05/10/16 11:41) Medications to take at Discharge Amox/Clavulanate Tablet [Augmentin Tablet] 875 mg PO Q12H #28 tablet 07/08/17 Hydrocodone Bitart/Apap 5-325 [[place] 5/325] 2 tab PO Q6H PRN PRN 3 Days #24 tab 07/08/17 Ibuprofen 2 - 3 mg PO Q6H PRN #1 tablet 07/08/17 The following prescriptions were given: Hydrocodone Bitart/Apap 5-325 [[place] 5/325] 2 tab PO Q6H PRN PRN 3 Days #24 tab PRN Reason: Severe Pain (6-10/10) Amox/Clavulanate Tablet [Augmentin Tablet] 875 mg PO Q12H #28 tablet Ibuprofen 2 - 3 mg PO Q6H PRN #1 tablet PRN Reason: Pain Primary Care Physician: Care Physician,No Primary [Primary Care Provider] - Please Follow Up With: Jose Cruz Avalos MD When: 10 days Proposed Discharge Date: 07/08/17
--- NOTE | 2017-07-08 19:21 | DS.PCM_ITS ---
Discharge Date and Diagnosis - Problem List Patient Problems: Active and Suspected Problems Tachycardia (Acute) Lightheadedness (Acute) Acute bacterial tonsillitis (Acute) Pharyngeal abscess (Acute) Date of Admission: 07/06/17 Date of Discharge: 07/08/17 - Primary Discharge Diagnosis Active and Suspected Problems Tachycardia (Acute) Lightheadedness (Acute) Acute bacterial tonsillitis (Acute) Hospital Course and Treatment Imaging Results: Clinical Impression(s) from Imaging Studies Soft Tissue Neck CT 07/06/17 12:28 IMPRESSION: Findings are consistent with bilateral tonsillitis with possible small developing abscess measuring 4.6 mm on the right side. There is reactive appearing lymphadenopathy. Electronically Signed: Brittani Bullock MD at 14:14 EST Tel , Service support , Summary of Care Provided: The patient is a 31 year old F presents with sore throat. CT showed Right posterior pharyngeal abscess. Started on Unasyn. Seen by Dr. Avalos, who recommended conservative mgmt and will follow up with patient 10days for possible tonsillectomy. Patient improved and tolerating diet. Pt discharged with augmentin. [] Discharge Diet: No Restrictions Discharge Activity: Return to Normal Activity Call your doctor if you observe: Fever of 101 or Higher, - - increased trouble swallowing. increased neck pain. Home Medications: Medications to take at Discharge Amox/Clavulanate Tablet [Augmentin Tablet] 875 mg PO Q12H #28 tab 07/08/17 Hydrocodone Bitart/Apap 5-325 [[place] 5/325] 2 tab PO Q6H PRN PRN 3 Days #24 tab 07/08/17 Ibuprofen 2 - 3 mg PO Q6H PRN #1 tablet 07/08/17 Following Prescrptions Were Given to Patient: Hydrocodone Bitart/Apap 5-325 [[place] 5/325] 2 tab PO Q6H PRN PRN 3 Days #24 tab PRN Reason: Severe Pain (6-10/10) Amox/Clavulanate Tablet [Augmentin Tablet] 875 mg PO Q12H #28 tab Ibuprofen 2 - 3 mg PO Q6H PRN #1 tablet PRN Reason: Pain Primary Care Physician: Care Physician,No Primary [Primary Care Provider] - Please Follow Up With: Jose Cruz Avalos MD When: 10 days Disposition: Home Minutes spent on discharge:: 28 Patient Condition:: Good Meaningful Use Info Meaningful Use Diagnoses (Choose all that apply): None applicable Code Visit Inpatient E&M: 39426 Disch Hosp
== END 2017-07-08 18:31 | disposition home or self-care (01) | DRG 872 ==
LOC: ED 13:31 → MS2 16:02
PROVIDERS: Admitting Provider Internal Medicine; Emergency Provider Emergency Medicine
DX: A41.9 Sepsis, unspecified organism (principal); J39.1 Other abscess of pharynx; E87.6 Hypokalemia; J03.00 Acute streptococcal tonsillitis, unspecified
CPT/HCPCS: 36415; 70491; 80048; 83605; 84703; 85025; 85027; 86308; 87040; 87070; 87077; 97802; 99282; J7030; Q9967; A4216; J0295; J2405

== ENCOUNTER 2017-07-09 03:58 | Emergency (ER) | payer OTHER, SELFPAY ==
[2017-07-09 04:01] VITALS: BP 141/98; PULSE 138; RESP 22; TEMP 37.6; O2SAT 97; BMI 27.3
[2017-07-09 04:42] LABS: Absolute Neutrophil Count 7.5 X10^3/uL (2.0-7.7); Basophil# 0.02 X10^3/uL; Basophil% 0.2 % (0-1); Eosinophil# 0.21 X10^3/uL; Eosinophils% 1.8 % (0-5); Hematocrit 37.4 % (37-47); Hemoglobin 12.3 g/dl (12.0-15.0); Lymphocyte % 22.7 % (19-41); Mean Corp Hgb Conc 32.9 g/gl (32-36); Mean Corpuscular Hgb 29.4 pg (27.0-32.0); Mean Corpuscular Volume 89.3 fL (81-99); Mean Platelet Vol. 10.2 fl (6.2-12.0); Monocyte% 9.6 % (0-10); Neutrophil # 7.45 X10^3/uL (2.7-7.7); Neutrophil % 65.3 % (47-70); Platelet Count 270 K/mm3 (150-450); RBC Distribution Width CV 13.6 % (11.6-14.6); RBC Distribution Width SD 44.1 fl (35.1-43.9); Red Blood Count 4.19 M/mm3 (4.2-5.4); White Blood Count 11.4 K/mm3 (4.4-11.0)
[2017-07-09 04:48] LABS: Anion Gap 10 (5-15); BUN 6 mg/dL (7-18); BUN/Creat Ratio 8.6 RATIO (10-20); Calcium,Total 8.4 mg/dL (8.5-10.1); Chloride 103 mmol/L (98-107); EST Glomerular Filtration Rate 104 mL/min (>60); Est Glom Filt Rate - Afr Amer 126 mL/min (>60); Estimated Creatinine Clearance 109.01 ml/min; Glucose 104 mg/dL (74-106); Potassium 3.3 mmol/L (3.5-5.1); Sodium Level 139 mmol/L (136-145)
[2017-07-09] MEDS: 0.9% Normal Saline 1,000 ML 1000 ML IV (04:50)
[2017-07-09] MEDS: Ondansetron 4 MG/2 ML Vial IV (04:51)
[2017-07-09 04:55] LABS: POSITIVE COUNT NO; POSITIVE DIFFERENTIAL NO; POSITIVE MORPHOLOGY NO
--- NOTE | 2017-07-09 05:08 | CT_ITS ---
STUDY: CT BRAIN WITH CONTRAST REASON FOR EXAM: Female, 31 years old. TONSILAR ABSCESS, TENDERNESS TO POSTERIOR HEAD RADIATION DOSAGE (If Supplied By Facility): CTDIvol = ( 44.99 ) mGy, DLP = ( 1790.45 ) mGycm TECHNIQUE: Transaxial CT imaging of the brain was performed post contrast administration. The examination was performed with intravenous administration of 50 ml of Isovue 370 contrast material. Individualized dose optimization techniques were used for this CT. COMPARISON: None. FINDINGS: Normal soft tissue structures. Normal calvarium. Normal size ventricles and extra-axial spaces for the patient's age. Normal white matter tracts of the cerebral hemispheres. Normal basal ganglia and thalami. Normal brainstem. Normal cerebellum. There is no intracranial hemorrhage. There are no findings of an acute ischemic infarction. Normal visualized paranasal sinuses. CT/Brain/Head WITH Contrast IMPRESSION: Normal enhanced CT scan of the brain. Electronically Signed: Han Pina MD at 6:01 EST Tel , Service support ,
[2017-07-09] MEDS: Ketorolac 30 MG/ML Syringe 15 MG IV (05:20)
--- NOTE | 2017-07-09 05:57 | ED.VISSUMM ---
- ER Visit Summary Date of Service: 07/09/17 Chief Complaint: Headache and sore throat History of Present Illness: The patient is a 31 F presenting for evaluation secondary to headache and sore throat. Patient was recently admitted to the hospital secondary to a peritonsillar abscess. Patient was started on antibiotics, did not actually have any sort of procedural drainage, had improvement and then was discharged with a course of Augmentin and [place] and ibuprofen. Patient states that while she was in the hospital she had a significant amount of right-sided neck pain and some right occipital pain that she told the hospitalist and ENT about and they attributed this to her peritonsillar abscess. Patient states that since she went home she was unable to get her prescription pain medications and developed significant headache in her left occiput now that is continuous and throbbing. She denies any neck stiffness. She denies any rashes. Review of systems otherwise negative. Physical Examination: Vital signs notable for initial heart rate of 138 heart rate came down to 105 upon my physical exam. Well-nourished female tearful otherwise not in physiologic distress. Head was normocephalic with evidence of tenderness over the left occipital base of the skull without any evidence of deformity or overlying rash. No mastoid tenderness was noted bilaterally. Nose was normal to inspection. Oropharynx shows evidence of bilateral tonsillar swelling erythema exudate but no real asymmetry. There is no meningismus noted, negative Brudzinski Kernig jolt and heel strike test. Patient had significant weight tender anterior lymphadenopathy bilaterally. Heart was tachycardic and regular. Lungs clear. No skin rashes or petechia noted. Remainder physical otherwise unremarkable. Test Results: CBC shows mild leukocytosis of 11.4, chemistry shows normal anion gap no acidosis and a mild hypokalemia 3.3. CT of the brain with contrast shows no evidence of abscess or acute intracranial pathology Emergency Department Course and Treatment: Patient presented for evaluation secondary to a headache and worsening sore throat in the setting of a medically treated peritonsillar abscess. She has no evidence of airway compromise, her throat actually looks symmetric at this point, and she has a patent oropharynx. Patient has no meningeal signs, I do not believe there were dealing with meningitis. Her lab tests were found to be unremarkable she was treated with morphine Zofran and a liter normal saline had some minimal improvement and then was given a dose of Toradol. Went back and reevaluate the patient, and the patient and her mother were significantly concerned about the headaches a CT with contrast was performed which did not show any evidence of infection abscess or other etiology for the patient's pain. This point patient potentially has referred pain from her abscess versus a tension headache, but I do not believe she requires admission or further observation or ENT consultation at this point. Patient was discharged with continued outpatient follow-up with ENT. Disposition: Discharge Impression: 1. Peritonsillar abscess 2. Cephalgia This note was generated with [employer] dictation software. It may contain incorrect words, spelling, and punctuation that were not noted in review of the chart prior to signing ED Disposition - Plan for ED Patient: Disposition: Home or Assisted Living Chief Complaint: Sore Throat Diagnosis: Peritonsillar abscess Instructions: ED Peritonsillar Abscess Prescriptions: Ondansetron [Zofran Odt] 4 mg PO Q8H PRN PRN #10 tab PRN Reason: Nausea Referrals: Jose Cruz Avalos MD [STAFF PHYSICIAN] - Keep Joslyn appointment
[2017-07-09 06:30] VITALS: BP 132/80; PULSE 76; RESP 16; O2SAT 96
--- NOTE | 2017-07-09 06:31 | NURSING ---
PT WAS TOLD TO FINISH HER COURSE OF ANTIBIOTICS AND GIVEN AN RX FOR ZOFRAN. PT UNDERSTANDS D/C INSTRUCTIONS AND KNOWS TO FOLLOW UP WITH DR OJEDA.
== END 2017-07-09 06:32 | disposition home or self-care (01) ==
PROVIDERS: Emergency Provider Emergency Medicine
DX: J36 Peritonsillar abscess (principal); R51 Headache
CPT/HCPCS: 70460; 80048; 85025; 96361; 96374; 96375; 99283; J7030; A4216; J2405

== ENCOUNTER 2017-07-16 06:59 | Day surgery (SDC) | payer OTHER, SELFPAY ==
--- NOTE | 2017-07-16 | TONS_PTH ---
PATIENT: DIANNA PARRY LOC: [facility] [place]#:[id number] AGE/SX: 31/ ROOM: RE07/16/[address]: Dr. Jose Cruz Avalos MD : 1985 BED: DIS: 07/16/2017 SPEC #: [id number] RECD: 07/16/17 10:50 STATUS: REYFredrick NORRIS #: [id number] KENDELL: 07/16/17 00:[address]: Jose Cruz Avalos DEPT: SURGICAL PATHOLOGY RECD BY: Tommy Talavera ENTERED: 07/16/17 10:50 SP TYPE: TONSILS OTHR DR: No Primary Care Phys Tissues: A - Tonsil, NOS B - Tonsil, NOS Procedures: Surgery Specimen Level III HEADER OPERATION: Tonsillectomy PRE-OP DIAGNOSIS: Chronic tonsillitis TISSUE SUBMITTED: A ? Left tonsil, B ? Right tonsil MICROSCOPIC DIAGNOSIS A. Left tonsil, tonsillectomy: Benign lymphoid follicular hyperplasia. B. Right tonsil, tonsillectomy: Benign lymphoid follicular hyperplasia. Organisms consistent with actinomyces. AM:nirmala 07/19/17 MICROSCOPIC DESCRIPTION Slides are reviewed. GROSS DESCRIPTION A - Received in fixative is one container labeled with the patient's name and designated left tonsil. The specimen consists of a tonsil that weighs 4.9 gm and measures 3.5 x 2 x 1.5 cm. The external surface is pink-alcaraz, smooth, glistening and somewhat lobulated. Focally it is hemorrhagic, granular and bears cautery artifact. Serial cross sections through the tonsil reveals normal tonsillar architecture. Sections are submitted in one cassette. B - Received in fixative is one container labeled with the patient's name and designated right tonsil. The specimen consists of a tonsil that weighs 4.4 gm and measures 3 x 2.5 x 1.5 cm. The external surface is pink-alcaraz, smooth, glistening and somewhat lobulated. Focally it is hemorrhagic, granular and bears cautery artifact. Serial cross sections through the tonsil reveals normal tonsillar architecture. Sections are submitted in one cassette. / SJ:nirmala 07/16/17 TC:5 CPT: 69302 x2
[2017-07-16 07:24] VITALS: BP 109/72; PULSE 95; RESP 18; TEMP 37.2; O2SAT 96; BMI 26.3
[2017-07-16 07:27] LABS: Internal QC Validated? YES +Cl - CLEAR BKGD; Pregnancy, Urine Negative Negative
--- NOTE | 2017-07-16 08:27 | DCINST_ITS ---
Discharge Activity: Return to Normal Activity, May not drive while taking narcotic pain medications. Call your doctor if your incision/area has: Sudden Increased Bleeding Call your doctor if you observe: Fever of 101 or Higher Allergies/Adverse Reactions: Allergies No Known Allergies Allergy (Verified 07/13/17 08:26) Medications to take at Discharge Amox/Clavulanate Tablet [Augmentin Tablet] 875 mg PO Q12H #28 tab 07/08/17 Hydrocodone Bitart/Apap 5-325 [[place] 5/325] 2 tab PO Q6H PRN PRN 3 Days #24 tab 07/08/17 Ondansetron [Zofran Odt] 4 mg PO Q8H PRN PRN #10 tab 07/09/17 Acetaminophen Liquid [Tylenol Liquid] 500 mg PO Q4H PRN PRN udc 07/16/17 Ibuprofen Liquid [Motrin Liquid] 600 mg PO Q6H PRN PRN udc 07/16/17 Ondansetron [Zofran] 4 mg IV Q4H PRN PRN vial 07/16/17 Primary Care Physician: Care Physician,No Primary [Primary Care Provider] - Please Follow Up With: Jose Cruz Avalos MD When: 2 weeks Proposed Discharge Date: 07/16/17
--- NOTE | 2017-07-16 08:44 | OP.PCM_ITS ---
Problem List (1) Chronic streptococcal tonsillitis Status: Chronic Report of Operation Date of Procedure: 07/16/17 Pre-Operative Diagnosis: Chronic recurrent tonsillitis Post-Operative Diagnosis: same Surgery/Procedure Performed:: Tonsillectomy Description of Surgical Findings:: Tanya is a 31-year-old female since evaluation after hospitalization for threatened peritonsillar abscess. She reports that she has had recurrent episodes of strep tonsillitis which have been worsening and now exceeding 7 episodes in a year and more than 5 episodes during the last 2 years. Examination showed resolution of her acute tonsillitis for which she been treated and seen in the hospital given the recurrence and severity of her complaints with worsening symptoms tonsillectomy was offered in hopes of alleviation and she was eager to proceed. The risks, alternatives, potential benefits, and complications were discussed at length and any questions answered to the patient and/or caregiver's satisfaction. Witnessed informed consent was obtained in the office, and the patient and/or caregiver was agreeable to proceed. Procedure went as follows: The patient was identified in the preoperative holding and brought to the operating room she was placed under general anesthesia and intubated. When appropriate anesthesia was obtained, the head of bed was rotated and the patient prepped and draped in usual sterile fashion. A Giovanni Perfecto mouthgag was then placed and the patient suspended from the [place] stand. The oral cavity examined and is noted to have 3+ cryptic tonsillar hypertrophy. Beginning on the right side the right tonsil was then grasped with a curved tenaculum and dissected from the underlying capsule with monopolar cautery. This was then sent as specimen. Similar procedure was then completed on the contralateral side. The oral and nasal cavities were then irrigated with saline solution and an NG tube placed to decompress the stomach. She was then returned to anesthesia where she was revived and extubated without complication having tolerated the procedure well. Type of Anesthesia:: General Anesthesiologist: Jose Cruz Lozano Specimen's removed: tonsils Drains: none Estimated Blood Loss (mL): 0 mL Fluids Replaced: 600 mL Grafts/Implants Used: none - Complications none - Admit VTE Documentation VTE Present on Admission: No VTE Mechan Device Prophylaxis: SCD's VTE Pharm Prophylaxis ordered?: No
[2017-07-16] MEDS: Bacitracin 500 UNITS/GM PACKET (08:48)
[2017-07-16 09:18] VITALS: BP 109/72; BP 126/88; PULSE 83; RESP 16; TEMP 36.1; O2SAT 94
[2017-07-16 09:30] VITALS: BP 109/72; BP 123/76; PULSE 71; RESP 16; O2SAT 99
[2017-07-16 09:45] VITALS: BP 109/72; BP 132/83; PULSE 60; RESP 16; O2SAT 98
[2017-07-16 10:00] VITALS: BP 109/72; BP 130/82; PULSE 61; RESP 16; TEMP 35.9; O2SAT 99
[2017-07-16 12:44] VITALS: BP 109/72
== END 2017-07-16 12:47 | disposition home or self-care (01) ==
LOC: SDC 07:01 → AC 07:02
PROVIDERS: Anesthesiology; Visit Provider Otolaryngology
PROC: (CPT 42826; principal; 2017-07-16 08:15)
DX: J03.01 Acute recurrent streptococcal tonsillitis (principal); J35.01 Chronic tonsillitis; A42.9 Actinomycosis, unspecified
CPT/HCPCS: 42826; 81025; 88304; J3010; J7120; J2405

== ENCOUNTER 2018-09-08 21:00 | Emergency (ER) | payer OTHER, SELFPAY ==
[2018-09-08 21:01] VITALS: BP 122/76; PULSE 89; RESP 16; TEMP 36.1; O2SAT 98; BMI 22.6
--- NOTE | 2018-09-08 21:33 | ED.VISSUMM ---
- ER Visit Summary Date of Service: 09/08/18 Chief Complaint: Chemical splash History of Present Illness: The patient is a 33 splash to eyes while at work 8:30 PM 1 hour prior to evaluation. 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 No history of similar. Twice. Burning to the eyes with blurry vision. She did rinse with some water prior to arrival. No nausea vomiting. Works in [employer]. 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 There is no specific ingredients. However cautions for eye irritation was to flush. Physical Examination: General: Alert and oriented ?3, no acute distress HEENT: Normocephalic, atraumatic. Moist mucosa membranes. Bilateral eyes, no erythema of sclera. There is no gross ulcerations. pH right eye 6.8, left eye 6.4. Neck: supple, nontender. Cardiovascular: Regular rate and rhythm, no murmurs Respiratory: Normal breath sounds, symmetric, no distress Abdomen: Soft, nontender, nondistended Extremities: Nontender, no edema, pulses intact ?4 Neuro: no focal neurological deficits. Test Results: [] Emergency Department Course and Treatment: Patient with slightly acidic pH in both eyes left greater than right. Fortunato lens was placed after tetracaine 2 L of normal saline was placed. Recheck pH was normal neutral range at 7 bilaterally. She had improving burning sensation however on visual acuity, she can make out the big E from arms length with her glasses. Slit-lamp examination with fluorescein, no abrasions or uptake. D/w dr. Montero, Will place on antibiotic drops, he was seen tomorrow in the office. Treatment Plan: [] Disposition: Discharge Impression: 1. Chemical splash bilateral eyes 2. Blurry vision This note was generated with Ensighten dictation software. It may contain incorrect words, spelling, and punctuation that were not noted in review of the chart prior to signing ED Disposition - Plan for ED Patient: Disposition: Home or Assisted Living Diagnosis: Chemical splash bilateral eyes, Blurry vision, bilateral Instructions: ED Chemical Conjunctivitis Referrals: Care Physician,No Primary [Primary Care Provider] - Sloan Montero MD [STAFF PHYSICIAN] - 1 Day for another exam Additional Instructions: Use antibiotic drops each eye 4 times a day. See Dr. Montero tomorrow in office.
--- NOTE | 2018-09-08 21:36 | ED.DCSUM_ITS ---
- ER Visit Summary Date of Service: 09/08/18 Chief Complaint: Chemical splash History of Present Illness: The patient is a 33 splash to eyes while at work 8:30 PM 1 hour prior to evaluation. 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 No history of similar. Twice. Burning to the eyes with blurry vision. She did rinse with some water prior to arrival. No nausea vomiting. Works in [id number]. 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 There is no specific ingredients. However cautions for eye irritation was to flush. Physical Examination: General: Alert and oriented ?3, no acute distress HEENT: Normocephalic, atraumatic. Moist mucosa membranes. Bilateral eyes, no erythema of sclera. There is no gross ulcerations. pH right eye 6.8, left eye 6.4. Neck: supple, nontender. Cardiovascular: Regular rate and rhythm, no murmurs Respiratory: Normal breath sounds, symmetric, no distress Abdomen: Soft, nontender, nondistended Extremities: Nontender, no edema, pulses intact ?4 Neuro: no focal neurological deficits. Test Results: [] Emergency Department Course and Treatment: Patient with slightly acidic pH in both eyes left greater than right. Fortunato lens was placed after tetracaine 2 L of normal saline was placed. Recheck pH was normal neutral range at 7 bi laterally. She had improving burning sensation however on visual acuity, she can make out the big E from arms length with her glasses. Slit-lamp examination with fluorescein, no abrasions or uptake. D/w dr. Montero, Will place on antibiotic drops, he was seen tomorrow in the office. Treatment Plan: [] Disposition: Discharge Impression: 1. Chemical splash bilateral eyes 2. Blurry vision This note was generated with Incap dictation software. It may contain incorrect words, spelling, and punctuation that were not noted in review of the chart prior to signing ED Disposition - Plan for ED Patient: Disposition: Home or Assisted Living Diagnosis: Chemical splash bilateral eyes, Blurry vision, bilateral Instructions: ED Chemical Conjunctivitis Referrals: Care Physician,No Primary [Primary Care Provider] - Sloan Montero MD [STAFF PHYSICIAN] - 1 Day for another exam Additional Instructions: Use antibiotic drops each eye 4 times a day. See Dr. Montero tomorrow in office.
[2018-09-08] MEDS: Fluorescein 1 MG STRIP 2 STRIP EACH EYE (21:38)
[2018-09-08] MEDS: Tetracaine 0.5% Ophthalmic Bottle 1 DRP EACH EYE (21:38)
[2018-09-08 23:29] VITALS: RESP 18
--- NOTE | 2018-09-08 23:47 | ED.RN ---
[facility] [facility] NOTIFIED OF PT IN ER NEEDING URINE DRUG SCREEN
[2018-09-09 00:26] VITALS: RESP 14
[2018-09-09] MEDS: Ciprofloxacin 0.3% 2.5ml Bottle 1 DRP EACH EYE (00:51)
[2018-09-09 00:56] VITALS: BP 109/78; PULSE 73; RESP 16; O2SAT 98
== END 2018-09-09 00:58 | disposition home or self-care (01) ==
PROVIDERS: Emergency Provider Emergency Medicine
DX: Z77.098 Contact with and (suspected) exposure to other hazardous, chiefly nonmedicinal, chemicals (principal); H53.8 Other visual disturbances; X58.XXXA Exposure to other specified factors, initial encounter; Y93.89 Activity, other specified; Y92.214 College as the place of occurrence of the external cause; Y99.0 Civilian activity done for income or pay
CPT/HCPCS: 99285; J7030

== ENCOUNTER 2018-10-25 12:32 | Inpatient (IN) | payer OTHER, SELFPAY ==
[2018-10-25] VITALS (36 sets, daily range): BP systolic 101–127; BP diastolic 59–99; PULSE 63–97; RESP 12–22; TEMP 36.8–37.5; O2SAT 97–100; BMI 23.5; BMI 23.2
--- NOTE | 2018-10-25 13:24 | EKG12_ITS ---
Test Reason : SYNCOPE Blood Pressure : / mmHG Vent. Rate : 074 BPM Atrial Rate : 074 BPM P-R Int : 134 ms QRS Dur : 090 ms QT Int : 412 ms P-R-T Axes : 046 077 047 degrees QTc Int : 457 ms Normal sinus rhythm Normal ECG Confirmed by HADLEY STAPLETON ([id number]), editor continuity and script AZALIA WEBBER ([id number]) on 10/27/2018 11:46:26 AM Referred By: MELANIA Confirmed By:AIDAN STAPLETON
--- NOTE | 2018-10-25 13:24 | CT_ITS ---
STUDY: CTA NECK WITH CONTRAST REASON FOR EXAM: Female, 33 years old. Weakness. Syncopal episode. RADIATION DOSAGE (If Supplied By Facility): CTDIvol = ( 28.22 ) mGy, DLP = ( 1823.18 ) mGycm TECHNIQUE: CT angiography with multi-detector data acquisition was performed from the aortic arch to the skull base following intravenous administration of 100 IV Isovue 370. MIP images were reconstructed from the axial data set. Post-processing of the angiographic images was performed, with multiplanar reformation and 3D reconstruction. Individualized dose optimization techniques were used for this CT. COMPARISON: None. FINDINGS: AORTIC ARCH: Normal visualized aortic arch. Normal origins of the brachiocephalic, left common carotid, and left subclavian arteries. RIGHT CAROTID ARTERIES: Normal right common carotid artery (CCA). Normal right common carotid bulb. Normal origin of the right internal carotid (ICA) artery without a hemodynamically significant stenosis. Normal visualized cervical portion of the right internal carotid artery. Normal origin of the right external carotid artery (ECA). LEFT CAROTID ARTERIES: Normal left common carotid artery (CCA). Normal left common carotid bulb. Normal origin of the left internal carotid (ICA) artery without a hemodynamically significant stenosis. Normal visualized cervical portion of the left internal carotid artery. Normal origin of the left external carotid artery (ECA). VERTEBRAL ARTERIES: Normal bilateral vertebral arteries. CT/CTA Neck W/WO Contrast IMPRESSION: Normal bilateral cervical carotid and vertebral arteries. Electronically Signed: Marvin Richey, at 14:59 EDT , Service support ,
--- NOTE | 2018-10-25 13:24 | CT_ITS ---
STUDY: CTA OF THE BRAIN REASON FOR EXAM: Female, 33 years old. Weakness. Syncopal episode. RADIATION DOSAGE (If Supplied By Facility): CTDIvol = ( 28.22 ) mGy, DLP = ( 1823.18 ) mGycm TECHNIQUE: CT angiography was performed with a multi-detector CT scanner. Data acquisition was obtained from the skull base through the vertex following intravenous administration of 100 IV Isovue 370. MIP images were reconstructed from the axial data set. Post-processing of the angiographic images was performed, with multiplanar reformation and 3D reconstruction. Individualized dose optimization techniques were used for this CT. COMPARISON: None. FINDINGS: Normal bilateral petrous carotid arteries. Normal right cavernous carotid artery with a normal supraclinoid bifurcation. Normal left cavernous carotid artery with a normal supraclinoid bifurcation. Normal right A1 segments of the anterior cerebral artery. Normal left A1 segments of the anterior cerebral artery. Normal intact anterior communicating artery (ACOM). Normal bilateral A2 segments of the anterior cerebral arteries. Normal right M1 and M2 segments of the middle cerebral arteries, with a normal M1 bifurcation. Normal left M1 and M2 segments of the middle cerebral arteries, with a normal M1 bifurcation. Normal right posterior communicating artery (PCOM). Normal left posterior communicating artery (PCOM). Normal bilateral vertebral arteries. Normal basilar artery with a normal basilar bifurcation. The visualized bilateral superior cerebellar (SCA) arteries are normal. Normal bilateral P1, P2 and visualized P3 segments of the posterior cerebral arteries. There is no demonstrated aneurysm of the [place]. There is no demonstrated abnormality of the visualized brain. CT/CTA Head W/WO Contrast IMPRESSION: Normal [place] without a demonstrated aneurysm or hemodynamically significant stenosis. Electronically Signed: Marvin Richey, at 14:58 EDT , Service support ,
--- NOTE | 2018-10-25 13:26 | CT_ITS ---
STUDY: CT BRAIN WITHOUT CONTRAST REASON FOR EXAM: Female, 33 years old. Weakness. RADIATION DOSAGE (If Supplied By Facility): CTDIvol = ( 45 ) mGy, DLP = ( 1760.95 ) mGycm TECHNIQUE: Transaxial CT imaging of the brain was performed without administration of intravenous contrast material. Individualized dose optimization techniques were used for this CT. COMPARISON: No relevant priors. FINDINGS: Normal soft tissue structures. Normal calvarium. Normal size ventricles and extra-axial spaces for the patient's age. Normal white matter tracts of the cerebral hemispheres. Normal basal ganglia and thalami. Normal brainstem. Normal cerebellum. There is no intracranial hemorrhage. There are no findings of an acute ischemic infarction. Normal visualized paranasal sinuses. CT/Brain/Head without Contrast IMPRESSION: Normal unenhanced CT scan of the brain. N.B. : The above information has been verbally conveyed by Marvin Richey to Yessica Allred on 10/25/2018 14:08:54 (ET). Electronically Signed: Marvin Richey, at 14:10 EDT , Service support ,
--- NOTE | 2018-10-25 13:27 | CT_ITS ---
STUDY: CTA CHEST REASON FOR EXAM: Female, 33 years old. Chest pain. Syncopal episode. RADIATION DOSAGE (If Supplied By Facility): CTDIvol = ( 28.22 ) mGy, DLP = ( 1823.18 ) mGycm TECHNIQUE: The examination was performed with the intravenous administration of 100 IV Isovue 370. Post-processing of the angiographic images was performed, with multiplanar reformation and 3D reconstruction. Individualized dose optimization techniques were used for this CT. COMPARISON: None. FINDINGS: Normal enhancement of the main pulmonary artery and right and left pulmonary arteries. Normal enhancement of the bilateral peripheral pulmonary arteries. There is no demonstrated pulmonary embolism. Normal thoracic aorta and visualized great vessels. There is no demonstrated aortic dissection. Normal heart and pericardium. Normal mediastinum. Normal hilar regions. Normal visualized trachea and bronchi. The lungs are well expanded. Normal pulmonary parenchyma. Normal pleura. Normal chest wall structures. Normal osseous structures. Normal visualized upper abdomen. CT/CTA Chest W/WO Contrast IMPRESSION: Normal CTA chest examination, without a demonstrated pulmonary embolism or arterial dissection. Electronically Signed: Marvin Richey, at 14:51 EDT , Service support ,
--- NOTE | 2018-10-25 13:28 | NURSING ---
STROKE ALERT CALLED
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
--- NOTE | 2018-10-25 13:35 | CM.ED ---
SOCIAL WORK RESPONDED TO STROKE ALERT. PATIENT IN CT, NO FAMILY PRESENT AT THIS TIME. CADEN BLACKBURN, SCIENCE EDITOR, TIRE BLADDER MAKER.
[2018-10-25 13:36] LABS: Bedside Glucose 87 mg/dL (70-110)
--- NOTE | 2018-10-25 13:37 | NURSING ---
DR CARTAGENA RETURNED CALL
[2018-10-25 13:43] LABS: Absolute Lymphocyte Count 1.71 X10^3/ul (0.83-4.51); Absolute Neutrophil Count 4.9 X10^3/uL (2.0-7.7); Basophil# 0.02 X10^3/uL; Basophil% 0.3 % (0-1); Eosinophil# 0.04 X10^3/uL; Eosinophils% 0.5 % (0-5); Hematocrit 41.3 % (37-47); Hemoglobin 13.5 g/dl (12.0-15.0); Lymphocyte # 1.71 X10^3/ul (4.0); Lymphocyte % 23.1 % (19-41); Mean Corp Hgb Conc 32.7 g/gl (32-36); Mean Corpuscular Hgb 28.9 pg (27.0-32.0); Mean Corpuscular Volume 88.4 fL (81-99); Mean Platelet Vol. 10.1 fl (6.2-12.0); Monocyte# 0.73 X10^3/uL; Monocyte% 9.9 % (0-10); Neutrophil # 4.89 X10^3/uL (2.7-7.7); Neutrophil % 66.1 % (47-70); POSITIVE COUNT NO; POSITIVE DIFFERENTIAL NO; POSITIVE MORPHOLOGY NO; Platelet Count 287 K/mm3 (150-450); RBC Distribution Width CV 13.1 % (11.6-14.6); RBC Distribution Width SD 41.8 fl (35.1-43.9); Red Blood Count 4.67 M/mm3 (4.2-5.4); White Blood Count 7.4 K/mm3 (4.4-11.0)
[2018-10-25 13:47] LABS: Prothrombin Time (Protime)PT. 12.7 SECONDS (11.7-14.9)
[2018-10-25 13:48] LABS: Partial Thromboplast Time 25.8 Seconds (24.1-36.2)
--- NOTE | 2018-10-25 13:50 | RAD_ITS ---
STUDY: X-RAY CHEST REASON FOR EXAM: Female, 33 years old. Chest pain. Syncopal episode. TECHNIQUE: Single AP portable view of the chest. COMPARISON: None. FINDINGS: EKG electrodes are seen. The lungs are clear and expanded. There is no demonstrated pleural abnormality. Normal size heart. Normal mediastinum and saturnino. Normal visualized pulmonary arteries. Normal visualized aortic arch and descending thoracic aorta. Normal visualized thoracic spine. Normal visualized ribs, clavicles, and shoulders. There is no demonstrated abnormality of the visualized soft tissue structures of the upper abdomen. RAD/Chest 1 View IMPRESSION: Normal x-ray examination of the chest. Electronically Signed: Marvin Richey, at 14:11 EDT , Service support ,
[2018-10-25 13:56] LABS: Anion Gap 9 (5-15); BUN 15 mg/dL (7-18); BUN/Creat Ratio 14.3 RATIO (10-20); Calcium,Total 8.9 mg/dL (8.5-10.1); Chloride 107 mmol/L (98-107); Creatinine, Serum 1.05 mg/dL (0.55-1.02); EST Glomerular Filtration Rate 64 mL/min (>60); Est Glom Filt Rate - Afr Amer 78 mL/min (>60); Estimated Creatinine Clearance 71.34 ml/min; Glucose 88 mg/dL (74-106); Potassium 3.7 mmol/L (3.5-5.1); Sodium Level 141 mmol/L (136-145)
[2018-10-25] MEDS: 0.9% Normal Saline 1,000 ML 999 ML IV (13:58)
[2018-10-25 14:22] LABS: Internal QC Validated? YES +Cl - CLEAR BKGD; Pregnancy, Serum, hCG Quali. NEGATIVE Negative
--- NOTE | 2018-10-25 14:55 | NURSING ---
DR ELIZONDO FOR DR HYDE
--- NOTE | 2018-10-25 15:03 | NURSING ---
ICU PAINTSIL ACUTE ISCHEMIC STROKE S/P TPA, LEFT SIDED WEAKNESS
--- NOTE | 2018-10-25 15:09 | NURSING ---
DR ELIZONDO IN ER
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
--- NOTE | 2018-10-25 15:31 | NURSING ---
ICU 4
--- NOTE | 2018-10-25 15:34 | ED.RN ---
pharmacy called for tpa at 1438. delivered by pharmacist 1446. tpa bolus 1452 tpa drip 1453 tpa verfied with second rn.
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
--- NOTE | 2018-10-25 15:44 | ED.RN ---
Dr. wong called to the room to re-evaluated pt and tpa held. pt had double vision and left eye deviation that started post hospitalist evaluation. after evaluation tpa continued under the order of dr. judith leblanc. hold initiated [id number]. reinitiated [id number]. jesse solis rn [id number]
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
[2018-10-25] MEDS: 0.9% Normal Saline 1,000 ML 100 ML IV (16:56)
[2018-10-25 18:45] LABS: Amphetamine Urine VISTA NEGATIVE (<1000 ng/mL); Barbiturate Urine VISTA NEGATIVE (< 200 ng/mL); Benzodiazepine Urine VISTA NEGATIVE (< 200 ng/mL); Cocaine Urine VISTA NEGATIVE (< 300 ng/mL); Ecstacy Urine VISTA NEGATIVE (< 500 ng/mL); Methadone Urine VISTA NEGATIVE (< 300 ng/mL); PCP Urine VISTA NEGATIVE (< 25 ng/mL); THC Urine VISTA NEGATIVE (< 50 ng/mL); Vista UDS pH Range 5
[2018-10-25] MEDS: Acetaminophen 325 MG Tablet 650 MG PO (20:44)
[2018-10-25] MEDS: 0.9% NaCl Peripheral Flush Adult/Peds IV (20:57)
--- NOTE | 2018-10-25 22:22 | NURSING ---
Pt placed call light on, c/o feeling like going to get sick. Pt handed emesis bag. PRN zofran available and given as per order.
[2018-10-25] MEDS: Ondansetron 4 MG/2 ML Vial IV (22:23)
[2018-10-26] VITALS (20 sets, daily range): BP systolic 86–110; BP diastolic 54–75; PULSE 51–100; RESP 12–20; TEMP 36.7–37.3; O2SAT 97–100; BMI 23.2
[2018-10-26] MEDS: 0.9% Normal Saline 1,000 ML 100 ML IV ×2 (02:20→11:57)
[2018-10-26 04:37] LABS: Absolute Lymphocyte Count 2.59 X10^3/ul (0.83-4.51); Absolute Neutrophil Count 3.8 X10^3/uL (2.0-7.7); Basophil# 0.01 X10^3/uL; Basophil% 0.1 % (0-1); Eosinophil# 0.07 X10^3/uL; Hematocrit 33.9 % (37-47); Hemoglobin 11.3 g/dl (12.0-15.0); Lymphocyte # 2.59 X10^3/ul (4.0); Lymphocyte % 35.9 % (19-41); Mean Corp Hgb Conc 33.3 g/gl (32-36); Mean Corpuscular Hgb 29.7 pg (27.0-32.0); Mean Corpuscular Volume 89.2 fL (81-99); Mean Platelet Vol. 9.2 fl (6.2-12.0); Monocyte# 0.72 X10^3/uL; Neutrophil # 3.81 X10^3/uL (2.7-7.7); Neutrophil % 52.9 % (47-70); Platelet Count 213 K/mm3 (150-450); White Blood Count 7.2 K/mm3 (4.4-11.0)
[2018-10-26] MEDS: Acetaminophen 325 MG Tablet 650 MG PO ×4 (04:37→23:10)
[2018-10-26 04:40] LABS: POSITIVE COUNT NO; POSITIVE DIFFERENTIAL NO; POSITIVE MORPHOLOGY NO
[2018-10-26 04:54] LABS: ALB/GLOB Ratio 0.9 RATIO (0.9-2.4); AST(SGOT) 33 U/L (15-37); Alanine Aminotransfer ALT/SGPT 46 U/L (13-56); Albumin, Serum 2.7 g/dL (3.2-5.0); Alkaline Phosphatase 47 U/L (45-117); Anion Gap 7 (5-15); BUN 10 mg/dL (7-18); Calcium,Total 7.8 mg/dL (8.5-10.1); Chloride 112 mmol/L (98-107); Creatinine, Serum 0.77 mg/dL (0.55-1.02); EST Glomerular Filtration Rate 91 mL/min (>60); Est Glom Filt Rate - Afr Amer 111 mL/min (>60); Estimated Creatinine Clearance 97.28 ml/min; Globulin 2.9 g/dL (2.2-4.2); Glucose 77 mg/dL (74-106); Potassium 3.6 mmol/L (3.5-5.1); Protein, Total 5.6 g/dL (6.4-8.2); Sodium Level 143 mmol/L (136-145)
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
--- NOTE | 2018-10-26 09:20 | ECHOD_ITS ---
Reason For Study: TIA/CVA Procedure This was a 2D Doppler, Color Flow transthoracic echocardiogram. The exam was of adequate technical quality. Exam performed portable in ICU/CCU. Left Ventricle Normal LV size. Left ventricular systolic function is normal. The estimated ejection fraction is 60 %. No evidence for diastolic dysfunction. No regional wall motion abnormalities noted. Right Ventricle Normal RV size. Normal systolic function. Atria Normal left atrium. Normal right atrium. No doppler evidence for ASD. Bubble contrast study negative for right to left interatrial shunt. Mitral Valve There is no mitral annular calcification. Mild diffuse mitral valve thickening. Trivial mitral valve insufficiency. Tricuspid Valve Normal tricuspid valve. Trivial tricuspid valve insufficiency. Aortic Valve Trisinus/trileaflet aortic valve. Normal aortic valve. Pulmonic Valve The pulmonic valve is not well visualized. Great Vessels Normal sized aortic root. Pericardium/Pleural No pericardial effusion. Medication Performed a rapid injection of agitated mix of 9 cc saline and 1cc air to assess for atrial septal defect. MMode/2D Measurements & Calculations LVIDd: 4.5 cm IVSd: 0.76 cm Ao root diam: 2.4 cm LVIDs: 3.1 cm LVPWd: 0.78 cm RVDd: 3.0 cm FS: 31.6 % LAV(MOD-bp): 25.0 ml LVAd ap4: 27.7 cm2 SV(MOD-sp4): 50.2 ml LAV(MOD-bp) Indexed: 14.3 ml/m2 EDV(MOD-sp4): 83.5 ml LAV(MOD-sp2): 17.1 ml EDV(sp4-el): 85.0 ml LAV(MOD-sp4): 33.5 ml LVAs ap4: 15.4 cm2 ESV(MOD-sp4): 33.3 ml ESV(sp4-el): 32.8 ml EF(MOD-sp4): 60.1 % EF(sp4-el): 61.4 % SV(sp4-el): 52.2 ml LA A4 area: 13.0 cm2 LA dimension(2D): 2.1 cm RA A4 area: 11.1 cm2 Doppler Measurements & Calculations MV E max harley: 86.1 cm/sec Lat Peak E' Harley: 17.3 cm/sec Med Peak E' Harley: 12.2 cm/sec MV A max harley: 54.4 cm/sec E/E' lat: 5.0 E/E' med: 7.0 MV E/A: 1.6 Ao V2 max: 128.2 cm/sec LV V1 max: 106.8 cm/sec PA V2 max: 97.1 cm/sec Ao max P.6 mmHg LV V1 max P.6 mmHg Interpretation Summary Left ventricular systolic function is normal. The estimated ejection fraction is 60 %. Mild diffuse mitral valve thickening. Trivial mitral valve insufficiency. Trivial tricuspid valve insufficiency. No evidence for diastolic dysfunction. Bubble contrast study negative for right to left interatrial shunt. Ordering Physician: Rivas Ram Performed By: Charlotte Rincon RDCS
--- NOTE | 2018-10-26 09:55 | CASEMGMT ---
PASQUALE SHANNON NOTE: To room to talk with pt. Introduced self and role of PASQUALE SHANNON. Pt's mother, father, and grandmother present in room and pt agreeable to talking with PASQUALE SHANNON with them present. Noted pt's is listed on demographics. Pt states she is in the process of getting a divorce and would like his contact information removed and her father's added. Same done. Pt also states is interested in talking with SW to complete HCPOA paperwork. SW, Jessica, notified. Pt does not currently have a PCP. Provided with list of local PCP's. ICU medical secretary receptionist to follow-up with pt to see if she can assist her with getting an appt with a PCP of her choice. Pt on bedrest. PT/OT evals pending. CM to follow for any PT needed @ discharge or other discharge planning needs. Pt made aware, once therapy evaluates her, if any further therapy is recommended, that CM would be in to discuss options with her. Pt voices appreciation. Manish DODSON RN, CM
[2018-10-26] MEDS: Amitriptyline 25 MG Tablet 50 MG PO (10:41)
--- NOTE | 2018-10-26 11:22 | PCM.PN.INT ---
Subjective: Patient did well overnight. No hemodynamic instability or bleeding has been reported. Patient has had improvement in neurologic exam. Patient did report a headache this morning and did have some nausea overnight without emesis. General: Alert, Oriented x3, Cooperative, No apparent distress, Well developed, Well nourished, - - Speaking in full sentences. HEENT: Atraumatic, PERRLA, Normocephalic, - - Disconjugate gaze is improved today. Oral: Moist Mucosa, No Gingival or Mucosal Lesions/ Ulcerations Neck: Supple, No JVD, No Nodes, Trachea Midline Lungs: Clear to auscultation, Normal air movement, No rhonchi, No wheeze, No rales Cardiovascular: Regular rate, Regular Rhythm, Normal S1, Normal S2, No murmurs, No rub noted, No Gallop Abdomen: Bowel Sounds Present, Soft, Non Tender, Non-Distended Extremities: No clubbing, No cyanosis, No edema Skin: No rashes, No breakdown Lymphatic: No Cervical, Supraclavicular, or Inguinal Adenopathy Neurological: - - Significant improvement in disconjugate gaze. Patient does have some drift noted to left lower extremity and left upper extremity. Sensation is intact. No dysarthria has been noted. Vital Signs Temp Pulse Resp BP Pulse Ox 37.1 C 73 20 H 108/69 99 10/26/18 09:00 10/26/18 09:00 10/26/18 09:00 10/26/18 09:00 10/26/18 09:00 Oxygen Delivery Method Room Air Weight: 66.1 kg Body Mass Index (BMI) 23.2 Finger Stick Blood Glucose 87 Intake and Output for Last 24 Hours 10/24/18 10/25/18 10/26/18 23:59 23:59 23:59 Intake Total 820 / 820 824 / 824 Output Total 850 / 850 125 / 125 Balance -30 / -30 699 / 699 Labs (Last 48 Hours) 10/25/18 10/25/18 10/25/18 12:41 12:41 12:41 WBC 7.4 RBC 4.67 Hgb 13.5 Hct 41.3 MCV 88.4 MCH 28.9 MCHC 32.7 RDW 13.1 RDW Differential 41.8 Plt Count 287 MPV 10.1 Immature Gran % (Auto) 0.100 Neut % (Auto) 66.1 Lymph % (Auto) 23.1 [place] % (Auto) 9.9 Eos % (Auto) 0.5 Baso % (Auto) 0.3 Absolute Neuts (auto) 4.9 Absolute Lymphs (auto) 1.71 Total Counted Not Reportable PT 12.7 INR 1.0 APTT 25.8 Sodium 141 Potassium 3.7 Chloride 107 Carbon Dioxide 25.0 Anion Gap 9 BUN 15 Creatinine 1.05 H Estim Creat Clear Calc 71.34 Est GFR (MDRD) Af Amer 78 Est GFR (MDRD) Non-Af 64 BUN/Creatinine Ratio 14.3 Glucose 88 Calcium 8.9 Total Bilirubin AST ALT Alkaline Phosphatase Troponin I < 0.015 Total Protein Albumin Globulin Albumin/Globulin Ratio Serum , Qual Urine Opiates Screen Urine Methadone Screen Ur Barbiturates Screen Ur Phencyclidine Scrn Ur Amphetamines Screen U Methamphetamin-MDMA U Benzodiazepines Scrn Urine Cocaine Screen U Cannabinoids Screen Ur Drug Screen Comment POC Glucose 10/25/18 10/25/18 10/25/18 13:32 14:03 18:05 WBC RBC Hgb Hct MCV MCH MCHC RDW RDW Differential Plt Count MPV Immature Gran % (Auto) Neut % (Auto) Lymph % (Auto) [place] % (Auto) Eos % (Auto) Baso % (Auto) Absolute Neuts (auto) Absolute Lymphs (auto) Total Counted PT INR APTT Sodium Potassium Chloride Carbon Dioxide Anion Gap BUN Creatinine Estim Creat Clear Calc Est GFR (MDRD) Af Amer Est GFR (MDRD) Non-Af BUN/Creatinine Ratio Glucose Calcium Total Bilirubin AST ALT Alkaline Phosphatase Troponin I Total Protein Albumin Globulin Albumin/Globulin Ratio Serum , Qual NEGATIVE Urine Opiates Screen NEGATIVE Urine Methadone Screen NEGATIVE Ur Barbiturates Screen NEGATIVE Ur Phencyclidine Scrn NEGATIVE Ur Amphetamines Screen NEGATIVE U Methamphetamin-MDMA NEGATIVE U Benzodiazepines Scrn NEGATIVE Urine Cocaine Screen NEGATIVE U Cannabinoids Screen NEGATIVE Ur Drug Screen Comment POC Glucose 87 10/25/18 10/26/18 10/26/18 20:55 04:30 04:30 WBC 7.2 RBC 3.80 L Hgb 11.3 L Hct 33.9 L MCV 89.2 MCH 29.7 MCHC 33.3 RDW 13.0 RDW Differential 43.0 Plt Count 213 MPV 9.2 Immature Gran % (Auto) 0.100 Neut % (Auto) 52.9 Lymph % (Auto) 35.9 [place] % (Auto) 10.0 Eos % (Auto) 1.0 Baso % (Auto) 0.1 Absolute Neuts (auto) 3.8 Absolute Lymphs (auto) 2.59 Total Counted Not Reportable PT INR APTT Sodium 143 Potassium 3.6 Chloride 112 H Carbon Dioxide 24.0 Anion Gap 7 BUN 10 Creatinine 0.77 Estim Creat Clear Calc 97.28 Est GFR (MDRD) Af Amer 111 Est GFR (MDRD) Non-Af 91 BUN/Creatinine Ratio 13.0 Glucose 77 Calcium 7.8 L Total Bilirubin 0.50 AST 33 ALT 46 Alkaline Phosphatase 47 Troponin I < 0.015 Total Protein 5.6 L Albumin 2.7 L Globulin 2.9 Albumin/Globulin Ratio 0.9 Serum , Qual Urine Opiates Screen Urine Methadone Screen Ur Barbiturates Screen Ur Phencyclidine Scrn Ur Amphetamines Screen U Methamphetamin-MDMA U Benzodiazepines Scrn Urine Cocaine Screen U Cannabinoids Screen Ur Drug Screen Comment POC Glucose Medical Necessity - Tobacco Use Smoking Status: Never smoker Tobacco Use: Non-smoker Assessment/Plan All Active Problems Chest pain (Acute) Left-sided weakness (Acute) Dysconjugate gaze (Acute) Chronic streptococcal tonsillitis (Resolved) Pharyngeal abscess (Resolved) RECOMMENDATIONS: 1. Post TPA protocol 2. MRI after 24 hours 3. Likely transfer from the intensive care unit later today IMPRESSIONS: 1. Left-sided weakness status post TPA Unclear if true etiology is a CVA. Differential diagnosis would include MS, acute ischemic stroke, complex migraine, conversion disorder. Patient appears to be improving. It is unclear if this is secondary to TPA versus resolution of underlying disorder. Patient does have sensation and improvement in disconjugate gaze. We will continue with therapy work-up. Patient is having an echocardiogram for evaluation of PFO. Discussed with neurology. Patient will have an MRI following [address] scan is likely not indicated if MRI is within normal limits. Otherwise, patient is hemodynamically stable on room air. Code Visit Inpatient E&M: 69759 Subs Hosp L2
--- NOTE | 2018-10-26 14:01 | PN_ITS ---
<Chula Davis - Last Filed: 10/26/18 14:08> Patient Problems: Active and Suspected Problems Chest pain (Acute) Left-sided weakness (Acute) Dysconjugate gaze (Acute) Subjective: Patient seen and examined. Complains of headache which she describes as a pressure behind her left eye. She is now able to lift her left upper extremity and left lower extremity off the bed and she also reports sensation is improved on the left side. - Physical Exam General: Alert, Oriented x3, Cooperative HEENT: Atraumatic, PERRLA, EOMI, Normocephalic Neck: Supple, No JVD, Negative Carotid Bruits Lungs: Clear to auscultation, Normal air movement Cardiovascular: Regular rate, Regular Rhythm, Normal S1, Normal S2, No murmurs Abdomen: Bowel Sounds Present, Soft, Non Tender, Non-Distended Extremities: No clubbing, No cyanosis, No edema, Capillary Refill Less than 3 Seconds Skin: No rashes, No breakdown Musculoskeletal: No Tenderness to Palpation of Joints or Extremities Neurological: Cranial nerves II-XII grossly intact, - - Left upper extremity/left lower extremity 4/5 strength without drift. Mild sensory deficit. Mild esoptropia of the left eye, unclear if this is new or baseline. Psych/Mental Status: Flat Affect Vital Signs Temp Pulse Resp BP Pulse Ox 99.2 F H 67 16 103/63 98 10/26/18 12:00 10/26/18 12:00 10/26/18 12:00 10/26/18 12:00 10/26/18 12:00 Oxygen Delivery Method Room Air Weight: 145 lb 11.609 oz Body Mass Index (BMI) 23.2 Finger Stick Blood Glucose 87 Intake and Output for Last 24 Hours 10/24/18 10/25/18 10/26/18 23:59 23:59 23:59 Intake Total 820 / 820 824 / 824 Output Total 850 / 850 125 / 125 Balance -30 / -30 699 / 699 Laboratory Tests Past 24 Hrs 10/25/18 10/25/18 10/25/18 14:03 18:05 20:55 WBC RBC Hgb Hct MCV MCH MCHC RDW RDW Differential Plt Count MPV Immature Gran % (Auto) Neut % (Auto) Lymph % (Auto) [place] % (Auto) Eos % (Auto) Baso % (Auto) Absolute Neuts (auto) Absolute Lymphs (auto) Total Counted Sodium Potassium Chloride Carbon Dioxide Anion Gap BUN Creatinine Estim Creat Clear Calc Est GFR (MDRD) Af Amer Est GFR (MDRD) Non-Af BUN/Creatinine Ratio Glucose Calcium Total Bilirubin AST ALT Alkaline Phosphatase Troponin I < 0.015 Total Protein Albumin Globulin Albumin/Globulin Ratio Serum , Qual NEGATIVE Urine Opiates Screen NEGATIVE Urine Methadone Screen NEGATIVE Ur Barbiturates Screen NEGATIVE Ur Phencyclidine Scrn NEGATIVE Ur Amphetamines Screen NEGATIVE U Methamphetamin-MDMA NEGATIVE U Benzodiazepines Scrn NEGATIVE Urine Cocaine Screen NEGATIVE U Cannabinoids Screen NEGATIVE Ur Drug Screen Comment 10/26/18 10/26/18 04:30 04:30 WBC 7.2 RBC 3.80 L Hgb 11.3 L Hct 33.9 L MCV 89.2 MCH 29.7 MCHC 33.3 RDW 13.0 RDW Differential 43.0 Plt Count 213 MPV 9.2 Immature Gran % (Auto) 0.100 Neut % (Auto) 52.9 Lymph % (Auto) 35.9 [place] % (Auto) 10.0 Eos % (Auto) 1.0 Baso % (Auto) 0.1 Absolute Neuts (auto) 3.8 Absolute Lymphs (auto) 2.59 Total Counted Not Reportable Sodium 143 Potassium 3.6 Chloride 112 H Carbon Dioxide 24.0 Anion Gap 7 BUN 10 Creatinine 0.77 Estim Creat Clear Calc 97.28 Est GFR (MDRD) Af Amer 111 Est GFR (MDRD) Non-Af 91 BUN/Creatinine Ratio 13.0 Glucose 77 Calcium 7.8 L Total Bilirubin 0.50 AST 33 ALT 46 Alkaline Phosphatase 47 Troponin I Total Protein 5.6 L Albumin 2.7 L Globulin 2.9 Albumin/Globulin Ratio 0.9 Serum , Qual Urine Opiates Screen Urine Methadone Screen Ur Barbiturates Screen Ur Phencyclidine Scrn Ur Amphetamines Screen U Methamphetamin-MDMA U Benzodiazepines Scrn Urine Cocaine Screen U Cannabinoids Screen Ur Drug Screen Comment Medical Necessity - Tobacco Use Smoking Status: Never smoker Tobacco Use: Non-smoker Assessment/Plan All Active Problems Chest pain (Acute) Left-sided weakness (Acute) Dysconjugate gaze (Acute) Chronic streptococcal tonsillitis (Resolved) Pharyngeal abscess (Resolved) 1. Left-sided weakness, rule out CVA-brain CT normal. Head and neck CTA unremarkable. Status post TPA. Patient initially with flaccid left upper extremity and left lower extremity. Now able to hold both without drift. Continues to complain of mild left-sided sensory loss. CT of cervical spine shows no fracture or dislocation in the cervical spine. MRI of brain following 24 hours after TPA. Echocardiogram with EF 60%, bubble contrast study negative for right to left intra-atrial shunt. Neurology consulted. Neurology suspects complex migraine versus conversion disorder. Await MRI. PT/OT/ST. 2. Musculoskeletal chest pain-reproducible. EKG without ST-T changes. Chest CTA without PE or arterial dissection. 3. Mild increased creatinine, secondary to mild dehydration- resolved. DVT prophylaxis- not indicated, low risk This patient was seen by SUSI Covington under the supervision of Dr. Ram. <Rivas Ram F - Last Filed: 10/26/18 19:38> - Physical Exam Vital Signs Temp Pulse Resp BP Pulse Ox 98.6 F 75 18 104/69 100 10/26/18 14:00 10/26/18 14:00 10/26/18 14:00 10/26/18 14:00 10/26/18 14:00 Oxygen Delivery Method Room Air Weight: 145 lb 11.609 oz Body Mass Index (BMI) 23.2 Finger Stick Blood Glucose 87 Intake and Output for Last 24 Hours 10/24/18 10/25/18 10/26/18 23:59 23:59 23:59 Intake Total 820 / 820 1684 / 1684 Output Total 850 / 850 625 / 625 Balance -30 / -30 1059 / 1059 Laboratory Tests Past 24 Hrs 10/25/18 10/25/18 10/26/18 18:05 20:55 04:30 WBC RBC Hgb Hct MCV MCH MCHC RDW RDW Differential Plt Count MPV Immature Gran % (Auto) Neut % (Auto) Lymph % (Auto) [place] % (Auto) Eos % (Auto) Baso % (Auto) Absolute Neuts (auto) Absolute Lymphs (auto) Total Counted Sodium 143 Potassium 3.6 Chloride 112 H Carbon Dioxide 24.0 Anion Gap 7 BUN 10 Creatinine 0.77 Estim Creat Clear Calc 97.28 Est GFR (MDRD) Af Amer 111 Est GFR (MDRD) Non-Af 91 BUN/Creatinine Ratio 13.0 Glucose 77 Calcium 7.8 L Total Bilirubin 0.50 AST 33 ALT 46 Alkaline Phosphatase 47 Troponin I < 0.015 Total Protein 5.6 L Albumin 2.7 L Globulin 2.9 Albumin/Globulin Ratio 0.9 Urine Opiates Screen NEGATIVE Urine Methadone Screen NEGATIVE Ur Barbiturates Screen NEGATIVE Ur Phencyclidine Scrn NEGATIVE Ur Amphetamines Screen NEGATIVE U Methamphetamin-MDMA NEGATIVE U Benzodiazepines Scrn NEGATIVE Urine Cocaine Screen NEGATIVE U Cannabinoids Screen NEGATIVE Ur Drug Screen Comment 10/26/18 04:30 WBC 7.2 RBC 3.80 L Hgb 11.3 L Hct 33.9 L MCV 89.2 MCH 29.7 MCHC 33.3 RDW 13.0 RDW Differential 43.0 Plt Count 213 MPV 9.2 Immature Gran % (Auto) 0.100 Neut % (Auto) 52.9 Lymph % (Auto) 35.9 [place] % (Auto) 10.0 Eos % (Auto) 1.0 Baso % (Auto) 0.1 Absolute Neuts (auto) 3.8 Absolute Lymphs (auto) 2.59 Total Counted Not Reportable Sodium Potassium Chloride Carbon Dioxide Anion Gap BUN Creatinine Estim Creat Clear Calc Est GFR (MDRD) Af Amer Est GFR (MDRD) Non-Af BUN/Creatinine Ratio Glucose Calcium Total Bilirubin AST ALT Alkaline Phosphatase Troponin I Total Protein Albumin Globulin Albumin/Globulin Ratio Urine Opiates Screen Urine Methadone Screen Ur Barbiturates Screen Ur Phencyclidine Scrn Ur Amphetamines Screen U Methamphetamin-MDMA U Benzodiazepines Scrn Urine Cocaine Screen U Cannabinoids Screen Ur Drug Screen Comment Code Visit Addendum: Dr. Ram I personally examined the patient and reviewed the chart. I agree with the above. 33 yo F presenting with syncope and concern for CVA. She has also been having a headache. Her CT head and neck were normal and her exam has resolved and normalized and her findings were, at times, inconsistent. 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 She is down for an MRI currently and if normal will plan for DC tomorrow. Inpatient E&M: 16335 Subs Hosp L2
--- NOTE | 2018-10-26 14:30 | MRI_ITS ---
STUDY: MRI BRAIN WITHOUT CONTRAST REASON FOR EXAM: Female, 33 years old. CVA, left-sided weakness TECHNIQUE: Standardized multiplanar fat and water weighted pulse sequences were obtained. COMPARISON: CT of the brain on October 25, 2018. FINDINGS: Normal size of the ventricles and extra-axial spaces for the patient's age. Normal white matter tracts of the supratentorial brain. Normal bilateral basal ganglia. Normal thalami. There is no extra-axial fluid accumulation. Normal flow voids within the major intracranial circulation suggesting patency by spin echo criteria. Normal sella turcica, pituitary gland, infundibular stalk, optic chiasm and hypothalamus. Normal tectal plate and pineal gland. Normal midbrain, bekah and medulla. Normal cerebellum. Normal basal cisterns. Normal bilateral temporal bones. Normal bilateral internal auditory canals. No demonstrated orbital abnormality, within the constraints of a routine brain study. Normal visualized paranasal sinuses. Normal calvarium and skull base. Normal visualized soft tissue structures. Normal visualized upper cervical spine. MRI/Brain without Contrast IMPRESSION: Normal unenhanced MRI of the brain. Electronically Signed: David Gtz MD at 16:05 EDT , Service support ,
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
--- NOTE | 2018-10-26 21:32 | NURSING ---
This RN contacted Jose Cruz in pharmacy as pt had a 50 mg dose of Elavil this AM at 10:41, but has a QHS dose ordered for tonight. Jose Cruz in pharmacy said to hold tonights dose.
[2018-10-26] MEDS: Amitriptyline 25 MG Tablet PO (23:10)
[2018-10-27 03:05] VITALS: PULSE 60
[2018-10-27 03:31] VITALS: BP 92/52; PULSE 53; RESP 15; TEMP 36.9; O2SAT 98
[2018-10-27 07:07] VITALS: PULSE 58
[2018-10-27] MEDS: Acetaminophen 325 MG Tablet 650 MG PO (07:54)
--- NOTE | 2018-10-27 08:34 | PCM.PN.NEU ---
Patient Problems: Active and Suspected Problems Chest pain (Acute) Left-sided weakness (Acute) Dysconjugate gaze (Acute) Subjective: now has worsening headache, 9/10. elavil helped last night. reports left sided symptoms and vision improved, - Physical Exam General: Alert, Oriented x3, Cooperative, No apparent distress Neurological: Cranial nerves II-XII grossly intact Psych/Mental Status: Anxious Vital Signs Temp Pulse Resp BP Pulse Ox 36.9 C 58 L 15 92/52 L 98 10/27/18 03:31 10/27/18 07:07 10/27/18 03:31 10/27/18 03:31 10/27/18 03:31 Oxygen Delivery Method Room Air Weight: 62.9 kg Body Mass Index (BMI) 23.2 Finger Stick Blood Glucose 87 Intake and Output for Last 24 Hours 10/25/18 10/26/18 10/27/18 23:59 23:59 23:59 Intake Total 820 / 820 2284 / 2284 100 / 100 Output Total 850 / 850 1325 / 1325 Balance -30 / -30 959 / 959 100 / 100 Current Medications Generic Name Dose Route Start Last Admin Trade Name Freq PRN Reason Stop Dose Admin Acetaminophen 650 mg 10/25/18 16:31 10/26/18 17:09 Tylenol PO 650 mg Q6H PRN PRN Administration Mild Pain (1-3)/Temp > 100.7 F Acetaminophen 650 mg 10/25/18 20:34 10/27/18 07:54 Tylenol PO 650 mg Q6H PRN PRN Administration PAIN Al Hydroxide/Mg Hydroxide 30 ml 10/25/18 16:31 Mylanta Ii PO Q6H PRN PRN Gastric Burning Amitriptyline HCl 25 mg 10/26/18 22:00 10/26/18 23:10 Elavil PO 25 mg QHS DENILSON Administration Diphenhydramine HCl 50 mg 10/25/18 14:36 Benadryl IV 10/27/18 14:36 .X1 PRN Allergic Reaction Epinephrine HCl 0.3 mg 10/25/18 14:36 IM 10/27/18 14:36 .X1 PRN Allergic Reaction Famotidine 20 mg/ Sodium 10 mls @ 300 mls/hr 10/25/18 14:36 Chloride IV 10/27/18 14:36 .X1 PRN Allergic Reaction Nicardipine HCl 25 mg/ Sodium 250 mls @ 0 mls/hr 10/25/18 14:36 Chloride IV .Q0M PRN see instructions As Directed Labetalol HCl 10 - 20 mg 10/25/18 14:36 Trandate IV Q15M PRN BP MANAGEMENT Melatonin 3 mg 10/26/18 22:57 Melatonin PO QHS PRN PRN INSOMNIA Methylprednisolone 125 mg 10/25/18 14:36 Solu-Medrol IV 10/27/18 14:36 .X1 PRN Allergic Reaction Ondansetron HCl 4 mg 10/25/18 16:31 10/25/18 22:23 Zofran IV 4 mg Q8H PRN PRN Administration NAUSEA/VOMITING Sodium Chloride 5 - 15 ml 10/25/18 16:30 10/25/18 20:57 IV 10 ml UD PRN Administration SALINE FLUSH Medical Necessity - Tobacco Use Smoking Status: Never smoker Tobacco Use: Non-smoker Assessment/Plan All Active Problems Chest pain (Acute) Left-sided weakness (Acute) Dysconjugate gaze (Acute) Chronic streptococcal tonsillitis (Resolved) Pharyngeal abscess (Resolved) complex migraine, complicated by anxiety defers rx for anxiety will continue elavil, add vpa iv therapies supportive rx mri neg, reviewed
[2018-10-27 09:47] VITALS: BP 106/61; PULSE 60; RESP 12; TEMP 36.8; O2SAT 100
[2018-10-27] MEDS: 0.9% NaCl Peripheral Flush Adult/Peds IV (09:49)
[2018-10-27] MEDS: Amitriptyline 25 MG Tablet 50 MG PO (10:02)
--- NOTE | 2018-10-27 10:34 | DCINST_ITS ---
- Discharge Diagnoses Current Active Problems: Current Active and Chronic Problems Chest pain (Acute) Left-sided weakness (Acute) Dysconjugate gaze (Acute) You will use the following diet at home:: Regular Your food should be the consistency of: Regular Your liquids should be the consistency of: Regular/Thin Discharge Activity: Return to Normal Activity Call your doctor if you observe: Fever of 101 or Higher, Shortness of breath, Dizziness, Fainting spells, Swelling in the ankles, Chest pain, Increased palpitations (irregular heartbeat) Allergies/Adverse Reactions: Allergies No Known Allergies Allergy (Verified 10/25/18 12:38) Medications to take at Discharge Cetirizine HCl [Zyrtec] 10 mg PO DAILY 10/25/18 Amitriptyline HCl [Elavil] 25 mg PO QHS #30 tablet 10/27/18 The following prescriptions were given: Amitriptyline HCl [Elavil] 25 mg PO QHS #30 tablet Primary Care Physician: Chary Sandoval MD [STAFF PHYSICIAN] - Please follow up with your Primary Care Physician in: 3-5 days Test Results: Test results from this visit will be discussed in further detail at your follow- up appointment, if applicable. Please Follow Up With: Sergey Reyes MD When: 1-2 weeks
--- NOTE | 2018-10-27 10:45 | CASEMGMT ---
SW spoke w/pt in room in regard to LW/POA and mental health resources. Pt does not think she needs any counseling at this time(physician had spoken to pt about possible mental health struggles at this time), but did accept information about local counseling agencies. SW also spoke w/pt about LW/POA, she may come in at a later time to complete. SW gave pt the forms and the number to the SW department should she want to complete the forms at a later time. FIDENCIO Manzo
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
--- NOTE | 2018-10-29 14:44 | CM.UR ---
[facility] CM DC PHONE CALL DC DATE: 10/27/18 DC Disposition: Home Attempted to perform discharge follow up phone call however no answer. no identification noted--no message left. Milan Bettencourt RN, CCM
== END 2018-10-27 12:30 | disposition home or self-care (01) | DRG 880 ==
LOC: ED 13:25 → ICU 15:19 → PCU 10-26 19:52
PROVIDERS: Admitting Provider Internal Medicine; Emergency Provider Emergency Medicine; Visit Provider Family Medicine
DX: F44.9 Dissociative and conversion disorder, unspecified (principal); G43.809 Other migraine, not intractable, without status migrainosus; E86.0 Dehydration; R53.1 Weakness; R07.9 Chest pain, unspecified; R55 Syncope and collapse
CPT/HCPCS: 51702; 70450; 70496; 70498; 70551; 71045; 71275; 72125; 80048; 80053; 80307; 82962; 84484; 84703; 85025; 85610; 85730; 92610; 93005; 93306; 97162; 97166; 97802; 99285; J2997; J7030; Q9967; A4216; J2405; J3490

== ENCOUNTER → 2020-05-15 10:03 | Outpatient (CLI) | payer OTHER, SELFPAY ==
[2020-05-15 09:01] VITALS: BMI 22.2
[2020-05-15 13:41] LABS: ALB/GLOB Ratio 0.9 RATIO (0.9-2.4); AST(SGOT) 6 U/L (15-37); Alanine Aminotransfer ALT/SGPT 19 U/L (13-56); Albumin, Serum 3.5 g/dL (3.2-5.0); Alkaline Phosphatase 57 U/L (45-117); Anion Gap 6 (5-15); BUN 12 mg/dL (7-18); Chloride 107 mmol/L (98-107); Creatinine, Serum 0.92 mg/dL (0.55-1.02); EST Glomerular Filtration Rate 74 mL/min (>60); Est Glom Filt Rate - Afr Amer 89 mL/min (>60); Globulin 3.7 g/dL (2.2-4.2); Glucose 81 mg/dL (74-106); Potassium 3.9 mmol/L (3.5-5.1); Protein, Total 7.2 g/dL (6.4-8.2); Sodium Level 139 mmol/L (136-145)
[2020-05-15 13:46] LABS: Absolute Neutrophil Count 7.6 X10^3/uL (2.0-7.7); Basophil# 0.02 X10^3/uL; Basophil% 0.2 % (0-1); Eosinophil# 0.07 X10^3/uL; Eosinophils% 0.7 % (0-5); Hematocrit 40.3 % (37-47); Hemoglobin 13.7 g/dL (12.0-15.0); Lymphocyte % 16.6 % (19-41); Mean Corpuscular Volume 94.2 fL (81-99); Mean Platelet Vol. 10.5 fl (6.2-12.0); Monocyte# 0.85 X10^3/uL; Monocyte% 8.3 % (0-10); NRBC Flagged by Analyzer 0 % (0-5); Neutrophil # 7.57 X10^3/uL (2.7-7.7); Neutrophil % 73.9 % (47-70); Platelet Count 247 K/mm3 (150-450); RBC Distribution Width CV 12.8 % (11.6-14.6); RBC Distribution Width SD 43.5 fl (35.1-43.9); Red Blood Count 4.28 M/mm3 (4.2-5.4); White Blood Count 10.2 K/mm3 (4.4-11.0)
== END ==
PROVIDERS: PCP Internal Medicine; Visit Provider Internal Medicine
DX: G43.909 Migraine, unspecified, not intractable, without status migrainosus (principal); G44.209 Tension-type headache, unspecified, not intractable
CPT/HCPCS: 36415; 80053; 85025

== ENCOUNTER → 2020-06-28 15:03 | Outpatient (CLI) | payer OTHER, SELFPAY ==
[2020-06-19 15:55] VITALS: BMI 22.4
[2020-06-28 17:02] LABS: ALB/GLOB Ratio 1.2 RATIO (0.9-2.4); AST(SGOT) 14 U/L (15-37); Alanine Aminotransfer ALT/SGPT 22 U/L (13-56); Albumin, Serum 3.9 g/dL (3.2-5.0); Alkaline Phosphatase 64 U/L (45-117); Anion Gap 4 (5-15); BUN 14 mg/dL (7-18); BUN/Creat Ratio 12.7 RATIO (10-20); Calcium,Total 9.1 mg/dL (8.5-10.1); Chloride 108 mmol/L (98-107); EST Glomerular Filtration Rate 60 mL/min (>60); Est Glom Filt Rate - Afr Amer 73 mL/min (>60); Globulin 3.2 g/dL (2.2-4.2); Glucose 67 mg/dL (74-106); Magnesium 2.4 mg/dL (1.6-2.6); Potassium 4.9 mmol/L (3.5-5.1); Protein, Total 7.1 g/dL (6.4-8.2); Sodium Level 141 mmol/L (136-145)
== END ==
PROVIDERS: PCP Internal Medicine; Referring Provider Nurse Practitioner Family; Visit Provider Nurse Practitioner Family
DX: H81.10 Benign paroxysmal vertigo, unspecified ear (principal); R25.1 Tremor, unspecified
CPT/HCPCS: 36415; 80053; 82140; 83735; 84443

== ENCOUNTER 2020-07-07 13:48 | Observation (INO) | payer OTHER, SELFPAY ==
[2020-06-19 15:55] VITALS: BMI 22.4
[2020-07-07] VITALS (11 sets, daily range): BP systolic 108–129; BP diastolic 67–79; PULSE 77–112; RESP 13–22; TEMP 36.7–37.1; O2SAT 99–100; BMI 23.8; BMI 22.8
--- NOTE | 2020-07-07 14:15 | EKG12_ITS ---
Test Reason : CP Blood Pressure : / mmHG Vent. Rate : 072 BPM Atrial Rate : 072 BPM P-R Int : 138 ms QRS Dur : 092 ms QT Int : 398 ms P-R-T Axes : 036 078 059 degrees QTc Int : 435 ms Normal sinus rhythm with sinus arrhythmia Normal ECG Confirmed by ROMULO BILLINGSLEY, KAIT ([id number]), video tape editor SAE RUIZ ([id number]) on 07/09/2020 11:36:47 AM Referred By: Confirmed By:KAIT SEBASTIAN MD
[2020-07-07 14:25] LABS: Absolute Neutrophil Count 11.4 X10^3/uL (2.0-7.7); Basophil# 0.03 X10^3/uL; Basophil% 0.2 % (0-1); Hematocrit 38.8 % (37-47); Lymphocyte % 14.1 % (19-41); Mean Corp Hgb Conc 33.5 g/dL (32-36); Mean Corpuscular Hgb 30.4 pg (27.0-32.0); Mean Corpuscular Volume 90.9 fL (81-99); Mean Platelet Vol. 10.2 fl (6.2-12.0); Monocyte# 1.37 X10^3/uL; Monocyte% 9.2 % (0-10); NRBC Flagged by Analyzer 0 % (0-5); Neutrophil # 11.35 X10^3/uL (2.7-7.7); Neutrophil % 76.3 % (47-70); Platelet Count 303 K/mm3 (150-450); RBC Distribution Width CV 12.4 % (11.6-14.6); RBC Distribution Width SD 41.1 fl (35.1-43.9); Red Blood Count 4.27 M/mm3 (4.2-5.4); White Blood Count 14.9 K/mm3 (4.4-11.0)
[2020-07-07] MEDS: Ondansetron 4 MG/2 ML Vial IV (14:26)
[2020-07-07] MEDS: diazePAM 5 MG Tablet 2.5 MG PO (14:26)
[2020-07-07] MEDS: 0.9% Normal Saline 1,000 ML 1000 ML IV (14:26)
[2020-07-07 14:27] LABS: Internal QC Validated? YES +Cl - CLEAR BKGD
[2020-07-07 14:28] LABS: Pregnancy, Serum, hCG Quali. NEGATIVE Negative
--- NOTE | 2020-07-07 14:30 | ED.DCSUM_ITS ---
- ER Visit Summary Date of Service: 07/07/20 Chief Complaint: Headache and dizziness History of Present Illness: The patient is a 34 F who presents with headache and dizziness that has been constant for the past month. Patient states that today she developed some tightness in her chest while she was at work. Patient states her dizziness feels like a moving sensation in her head. Patient states nothing makes it better and nothing makes it worse. Patient states she has seen her doctor for this with no improvement. Patient admits to a cough but denies any shortness of breath. Patient states she did have an episode of palpitations today while at work. Patient denies any fevers but admits to subjective chills. Patient admits to some nausea and vomiting. Physical Examination: Vital signs are stable. Patient is afebrile. Patient is in no acute distress. Oral mucosa is pink and moist. Neck is supple. Trachea is midline. There is no JVD noted. Heart was regular rate and rhythm. Lungs are clear and equal bilaterally. Abdomen is soft. Bowel sounds are normal. Th ere is no tenderness. There is no rebound or guarding noted. Skin is warm dry. Cranial nerves II through XII are intact. There are no focal motor or sensory deficits noted. Extremities are intact. There is no calf tenderness or edema. Test Results: EKG was obtained. On my interpretation, there is a normal sinus rhythm with a rate of 72. There are no acute ST or T wave changes. Portable 1 view chest x-ray was obtained. On my interpretation, lung owens are clear. There is normal cardiac silhouette. Bony thorax is normal. There is no acute process noted. Radiologist also interpreted the x-ray and agrees. CBC shows a mild leukocytosis of 14.9. Comprehensive metabolic profile was within normal limits. Urinalysis was normal. Troponin was normal. D-dimer was normal. Serum hCG was normal. CT scan of the brain was obtained and does not show any evidence of acute intracranial abnormality. This was interpreted by the radiologist and reviewed by myself. Emergency Department Course and Treatment: Patient was given a dose of Valium here. Patient had no improvement of her dizziness. Patient was given a dose of meclizine. Upon return from CT scan, the patient was having seizure-like activity. Patient was having generalized shaking. Patient was responsive to verbal stimuli during the event. Patient was given a dose of Ativan. Patient stopped shaking immediately. Patient still complains of dizziness. Patient also had an episode of urinary incontinence but this was after the shaking episode stopped. Patient was able to ambulate to the bathroom however she was somewhat shaky with ambulation. Patient started urinating prior to sitting on the toilet. Patient is uncomfortable going home. Case was discussed with the hospitalist. He will admit the patient to his service. Disposition: Admit to hospital Impression: 1. Intractable vertigo 2. Shaking episode, questionable partial seizure versus pseudoseizure This note was generated with [employer] dictation software. It may contain incorrect words, spelling, and punctuation that were not noted in review of the chart prior to signing ED Disposition - Plan for ED Patient: Disposition: Acute Care Hospital [facility]
[2020-07-07 14:33] LABS: D-Dimer Quantitative (DVT/PE) <= 0.27 FEU/ug/m (0.27-0.49)
[2020-07-07 14:38] LABS: AST(SGOT) 12 U/L (15-37); Alanine Aminotransfer ALT/SGPT 22 U/L (13-56); Albumin, Serum 3.8 g/dL (3.2-5.0); Alkaline Phosphatase 56 U/L (45-117); Anion Gap 8 (5-15); BUN 13 mg/dL (7-18); BUN/Creat Ratio 15.3 RATIO (10-20); Calcium,Total 9.3 mg/dL (8.5-10.1); Chloride 105 mmol/L (98-107); Creatinine, Serum 0.85 mg/dL (0.55-1.02); EST Glomerular Filtration Rate 81 mL/min (>60); Est Glom Filt Rate - Afr Amer 98 mL/min (>60); Globulin 3.7 g/dL (2.2-4.2); Glucose 103 mg/dL (74-106); Potassium 3.7 mmol/L (3.5-5.1); Protein, Total 7.5 g/dL (6.4-8.2); Sodium Level 138 mmol/L (136-145)
--- NOTE | 2020-07-07 14:40 | RAD_ITS ---
STUDY: X-RAY CHEST REASON FOR EXAM: Female, 34 years old. CHEST PAIN X ONE DAY TECHNIQUE: AP COMPARISON: 10/25/2018 FINDINGS: The lungs are clear and expanded. There is no demonstrated pleural abnormality. Normal size heart. Normal mediastinum and [place]. Normal visualized pulmonary arteries. Normal visualized aortic arch and descending thoracic aorta. Normal visualized thoracic spine. Normal visualized ribs, clavicles, and shoulders. There is no demonstrated abnormality of the visualized soft tissue structures of the upper abdomen. RAD/Chest 1 View (Portable) IMPRESSION: Stable, nonacute portable x-ray examination of the chest. Electronically Signed: Wolfgang London MD (Brooks) at 14:56 EST , Service support ,
[2020-07-07 14:46] LABS: Red Blood Cells-Urine 0 SEEN /hpf (0-5); Squamous Epithelial Cells - UA 0 SEEN /hpf (5-10)
[2020-07-07 14:49] LABS: Color, Urine Yellow (Yellow); Glucose, Dipstick Normal (Normal); Ketone-Dipstick 5 mg/dl (Negative); Leukocyte Esterase-Dipstick 25 /ul (Negative); Nitrite-Dipstick Negative (Negative); Occult Blood-Urine 25 /ul (Negative); Protein-Dipstick 15 mg/dl (Negative); Specific Gravity, Urine 1.025 (1.002-1.030); Urine Bilirubin Dipstick Negative (Negative); Urine Clarity Sl. Cloudy (Clear); Urine Urobilinogen Normal (Normal)
[2020-07-07 14:58] LABS: Bacteria 1+ /hpf (None Seen); Mucous, Urine 1+ /hpf (<or=2+); White Blood Cells 0-5 SEEN /hpf (0-5)
--- NOTE | 2020-07-07 15:23 | CT_ITS ---
EXAM: CT HEAD WITHOUT INTRAVENOUS CONTRAST CLINICAL INDICATION: DIZZINESS TECHNIQUE: Multiple axial images were obtained of the head without intravenous contrast. This CT exam was performed using one or more of the following dose reduction techniques: automated exposure control, adjustment of the mA and/or kV according to patient size, and/or use of iterative reconstruction technique. This report was created using [employer] report generation technology. COMPARISON: 10/25/2018. FINDINGS: BRAIN AND EXTRA-AXIAL SPACES: Unremarkable. No intra- or extra-axial hemorrhage. No evidence of acute infarct. No intracranial mass or mass effect. There is preservation of the [place]/white matter interface. Posterior fossa structures are unremarkable. Ventricles are appropriate for age. No hydrocephalus. Basal cisterns are patent. BONES/JOINTS: Unremarkable. No discrete lytic or blastic abnormalities. SINUSES: Unremarkable as visualized. Clear. MASTOID AIR CELLS: Unremarkable. Clear. ORBITS: Visualized globes, extraocular muscles, optic nerves and retrobulbar fat appear unremarkable. CT/Brain/Head without Contrast IMPRESSION: Negative head/brain CT without intravenous contrast. Electronically Signed: Wolfgang London MD (Brooks) at 16:12 EST , Service support ,
[2020-07-07] MEDS: Acetaminophen 500 MG Tablet 1000 MG PO ×2 (15:51→19:24)
[2020-07-07] MEDS: Meclizine HCl 25 MG Tablet PO ×2 (15:51→21:52)
[2020-07-07] MEDS: LORazepam 2 MG/ML Syringe 1 MG IV (16:11)
--- NOTE | 2020-07-07 16:13 | ED.RN ---
A pt was returning from CT her eyes look fixed and she was trembling in a state that mimics a seizure. The dr was summonsed to the bedside. The patient was able to verbally answer questions. heart rate was in 130's resps in 40's. Ativan 1mg ivp given per verbal order of Dr Lynne.
--- NOTE | 2020-07-07 16:17 | ED.RN ---
pt now has rigors. denies being cold but unable to control shaking. alert and answers appropriately.
--- NOTE | 2020-07-07 17:11 | ED.RN ---
Patient incontinent of large amount of urine. She states she could not tell she had to go through the shaking. I assisted patient to stand by bedside changing her gown. patient was able to drop her pants then I placed a gown around her back. She sat in [facility] chair while I cleaned and changed the bed without incident. As patient was assisted to standing position to return to bed, she stood and her knees buckled but she was able to support herself with assist of one. She moved easily to the bed after this event and was replaced on the monitor. Her privacy was maintained throughout the changing and her mother was in the room.
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
--- NOTE | 2020-07-07 20:11 | EKG12_ITS ---
Test Reason : CP ADMIT Blood Pressure : / mmHG Vent. Rate : 075 BPM Atrial Rate : 075 BPM P-R Int : 144 ms QRS Dur : 096 ms QT Int : 392 ms P-R-T Axes : 043 073 027 degrees QTc Int : 437 ms Normal sinus rhythm Normal ECG When compared with ECG of 07-JUL-2020 13:54, MANUAL COMPARISON REQUIRED, DATA IS UNCONFIRMED Confirmed by ROMULO BILLINGSLEY, KAIT ([id number]), editor in chief SAE RUIZ ([id number]) on 07/09/2020 11:40:35 AM Referred By: DR ALFONSO Confirmed By:KAIT SEBASTIAN MD
[2020-07-07 21:00] LABS: CPK Total, Creatine Kinase 78 U/L (26-192); Prolactin 10.5 ng/mL
[2020-07-07] MEDS: MethylPREDNISolone 4 MG Tablet PO (21:52)
[2020-07-07] MEDS: MELATONIN 3 MG TABLET PO (21:56)
[2020-07-08] VITALS (11 sets, daily range): BP systolic 90–125; BP diastolic 47–79; PULSE 59–99; RESP 16–18; TEMP 36.7–37.2; O2SAT 96–100
[2020-07-08 03:15] LABS: Absolute Neutrophil Count 6.7 X10^3/uL (2.0-7.7); Basophil# 0.01 X10^3/uL; Basophil% 0.1 % (0-1); Hematocrit 33.7 % (37-47); Lymphocyte % 13.3 % (19-41); Mean Corp Hgb Conc 32.6 g/dL (32-36); Mean Corpuscular Hgb 30.7 pg (27.0-32.0); Mean Corpuscular Volume 94.1 fL (81-99); Mean Platelet Vol. 9.9 fl (6.2-12.0); Monocyte# 0.43 X10^3/uL; Monocyte% 5.2 % (0-10); NRBC Flagged by Analyzer 0 % (0-5); Neutrophil # 6.73 X10^3/uL (2.7-7.7); Platelet Count 221 K/mm3 (150-450); RBC Distribution Width CV 12.6 % (11.6-14.6); RBC Distribution Width SD 43.8 fl (35.1-43.9); Red Blood Count 3.58 M/mm3 (4.2-5.4); White Blood Count 8.3 K/mm3 (4.4-11.0)
[2020-07-08] MEDS: Acetaminophen 325 MG Tablet 650 MG PO ×3 (03:18→19:22)
[2020-07-08] MEDS: LORazepam 2 MG/ML Syringe 1 MG IV (03:30)
--- NOTE | 2020-07-08 04:03 | PCM.PN.BLA ---
Progress Note Nursing team reports that while patient was being helped to urinate patienbt said she was not feeling good. After her statement she had nystagmus and later went into a tonic clonic seizure-like activity. She was incontinent of urine. She was given ativan 1mg IV X1. Will give Keppra 750mg IV x 1 and then Keppra 500mg IV bid. Ativan 1mg IV ordered again for seizure. Of note patient received Valium at ED for vertigo; and also received ativan 1mg IV for seizure. EEG and MRI already ordered. CT head was unremarkable. MRI already ordered. Discussed with nursing team who will put patient on video monitor. STROKE Vital Signs/Narrative: Vital Signs Temp Pulse Resp BP BP Pulse Ox 07/08/20 03:47 99 18 125/79 H 98 07/08/20 03:14 98.9 F 75 16 97/57 L 99
[2020-07-08 04:33] LABS: Anion Gap 7 (5-15); BUN 11 mg/dL (7-18); BUN/Creat Ratio 12.1 RATIO (10-20); Calcium,Total 8.1 mg/dL (8.5-10.1); Chloride 111 mmol/L (98-107); Creatinine, Serum 0.91 mg/dL (0.55-1.02); EST Glomerular Filtration Rate 75 mL/min (>60); Est Glom Filt Rate - Afr Amer 91 mL/min (>60); Estimated Creatinine Clearance 81.55 ml/min; Glucose 135 mg/dL (74-106); Potassium 3.7 mmol/L (3.5-5.1); Sodium Level 142 mmol/L (136-145)
[2020-07-08] MEDS: Meclizine HCl 25 MG Tablet PO ×3 (05:40→21:48)
--- NOTE | 2020-07-08 08:54 | PN_ITS ---
Patient Problems: Active and Suspected Problems (Last Reviewed 07/08/20 @ 02:[address] Guy Danielle MD) Vertigo (Acute) Chest pain (Acute) Reason for Visit: Follow-up for headache, nausea, dizziness, vertigo and seizure Objective: Patient is still feeling dizzy, headache. Her headache is mainly on the back of the head which radiates to the front. She also has a squint which she did not know. Complaint of diplopia on right lateral gaze. Physical exam General: Alert, Oriented x3, Cooperative HEENT: Right eye diplopia, mild LR weakness. Atraumatic, PERRLA, Normocephalic Oral: No Gingival or Mucosal Lesions/ Ulcerations Neck: Supple, No JVD, Negative Carotid Bruits Lungs: Air entry diminished in bilateral lung bases. No crepitation/rhonchi Cardiovascular: Regular rate, Regular Rhythm, Normal S1, Normal S2, No murmurs Abdomen: Bowel Sounds Present, Soft, Non Tender, Non-Distended : No renal angle tenderness. No suprapubic tenderness. Extremities: No edema, Capillary Refill Less than 3 Seconds Skin: No rashes, No breakdown Musculoskeletal: No Tenderness to Palpation of Joints or Extremities Neurological: Cranial nerves II-XII grossly intact, Deep Tendon Reflexes 2+/4 and Symmetrical, Neuro grossly intact Psych/Mental Status: Normal Affect, Appropriate. Vitals/I&O's: Vital Signs Temp Pulse Resp BP Pulse Ox 98.9 F 59 L 18 125/79 H 98 07/08/20 03:14 07/08/20 07:00 07/08/20 03:47 07/08/20 03:47 07/08/20 03:47 Oxygen Delivery Method Room Air Weight: 141 lb 5.061 oz Body Mass Index (BMI) 22.8 Finger Stick Blood Glucose 87 Intake and Output for Last 24 Hours 07/06/20 07/07/20 07/08/20 23:59 23:59 23:59 Intake Total 1000 / 1480 729.75 / 729.75 Balance 1000 / 1480 729.75 / 729.75 Laboratory Results 07/07/20 13:58: WBC 14.9 H, RBC 4.27, Hgb 13.0, Hct 38.8, MCV 90.9, MCH 30.4, MCHC 33.5, RDW Std Deviation 41.1, RDW Coeff of [place]asha[place] 12.4, Plt Count 303, MPV 10.2, Immature Gran % (Auto) 0.200, Neut % (Auto) 76.3 H, Lymph % (Auto) 14.1 L, [place] % (Auto) 9.2, Eos % (Auto) 0.0, Baso % (Auto) 0.2, Absolute Neuts (auto) 11.4 H, Absolute Lymphs (auto) 2.10, Nucleated RBC % 0 07/07/20 13:58: D-Dimer Quant (PE/DVT) <= 0.27 07/07/20 13:58: Sodium 138, Potassium 3.7, Chloride 105, Carbon Dioxide 25.0, Anion Gap 8, BUN 13, Creatinine 0.85, Estim Creat Clear Calc 87.30, Est GFR (MDRD) Af Amer 98, Est GFR (MDRD) Non-Af 81, BUN/Creatinine Ratio 15.3, Glucose 103, Calcium 9.3, Total Bilirubin 0.30, AST 12 L, ALT 22, Alkaline Phosphatase 56, Troponin I < 0.015, Total Protein 7.5, Albumin 3.8, Globulin 3.7, Albumin/Globulin Ratio 1.0 07/07/20 13:58: Serum , Qual NEGATIVE 07/07/20 14:41: Urine Color Yellow, Urine Clarity Sl. Cloudy, Urine pH 6.0, Ur Specific Evans 1.025, Urine Protein 15 H, Urine Glucose (UA) Normal, Urine Ketones 5 H, Urine Occult Blood 25 H, Urine Nitrite Negative, Urine Bilirubin Negative, Urine Urobilinogen Normal, Ur Leukocyte Esterase 25 H, Urine RBC 0 SEEN, Urine WBC 0-5 SEEN, Ur Squamous Epith Cells 0 SEEN, Urine Bacteria 1+, Urine Mucus 1+ 07/07/20 20:11: Total Creatine Kinase 78, Prolactin 10.5 07/07/20 20:57: Troponin I < 0.015 07/07/20 23:46: Troponin I < 0.015 07/08/20 02:52: WBC 8.3, RBC 3.58 L, Hgb 11.0 L, Hct 33.7 L, MCV 94.1, MCH 30.7, MCHC 32.6, RDW Std Deviation 43.8, RDW Coeff of Rashaun 12.6, Plt Count 221, MPV 9.9, Immature Gran % (Auto) 0.400, Neut % (Auto) 81.0 H, Lymph % (Auto) 13.3 L, Lagrange % (Auto) 5.2, Eos % (Auto) 0.0, Baso % (Auto) 0.1, Absolute Neuts (auto) 6.7, Absolute Lymphs (auto) 1.10, Nucleated RBC % 0 07/08/20 02:52: Sodium 142, Potassium 3.7, Chloride 111 H, Carbon Dioxide 24.0, Anion Gap 7, BUN 11, Creatinine 0.91, Estim Creat Clear Calc 81.55, Est GFR (MDRD) Af Amer 91, Est GFR (MDRD) Non-Af 75, BUN/Creatinine Ratio 12.1, Glucose 135 H, Calcium 8.1 L 07/08/20 02:52: Troponin I < 0.015 Current Medications Acetaminophen (Acetaminophen 325 Mg Tablet) 650 mg PO Q6H PRN PRN PRN Reason: Pain Score 1-10/Temp > 100.7 F Last Admin: 07/08/20 03:18 Dose: 650 mg Documented by: Sodium Chloride () 250 mls @ 15 mls/hr IV .[id number] PRN PRN Reason: Saline Flush Last Infusion: 07/08/20 05:45 Dose: 0 mls/hr Documented by: Sodium Chloride () 250 mls @ 15 mls/hr IV .[id number] PRN PRN Reason: Additional IVPB Infusion Levetiracetam 500 mg/ Sodium (Chloride) 105 mls @ 400 mls/hr IV Q12 [facility] Loratadine (Loratadine 10 Mg Tablet) 10 mg PO DAILY [facility] Lorazepam (Lorazepam 2 Mg/Ml Syringe) 1 mg IV X1 PRN PRN Reason: seizure-like activity Last Admin: 07/08/20 03:30 Dose: 1 mg Documented by: Lorazepam (Lorazepam 2 Mg/Ml Syringe) 1 mg IV X1 PRN PRN Reason: Seizure-like activity Meclizine HCl (Meclizine Hcl 25 Mg Tablet) 25 mg PO TID [facility] Last Admin: 07/08/20 05:40 Dose: 25 mg Documented by: Melatonin (Melatonin 3 Mg Tablet) 3 mg PO QHS PRN PRN PRN Reason: INSOMNIA Last Admin: 07/07/20 21:56 Dose: 3 mg Documented by: Methylprednisolone (Methylprednisolone 4 Mg Tablet) 4 mg PO 4X/DAYCM [facility]; Taper Stop: 07/12/20 07:59 Last Admin: 07/07/20 21:52 Dose: 12 mg Documented by: Ondansetron HCl (Ondansetron 4 Mg/2 Ml Vial) 4 mg IV Q8H PRN PRN PRN Reason: NAUSEA/VOMITING Senna/Docusate Sodium (Senna/Docusate Sodium 1 Tablet) 2 tablet PO BID PRN PRN PRN Reason: Constipation Sodium Chloride (0.9% Saline Lock 10 Ml Syringe) 10 - 40 ml IV UD PRN PRN Reason: SALINE FLUSH STROKE Vital Signs/Narrative: Vital Signs Pulse 07/08/20 07:00 59 L Medical Necessity - Tobacco Use Smoking Status: Never smoker Assessment/Plan All Active Problems (Last Reviewed 07/08/20 @ 02:[address] Guy Danielle MD) Vertigo (Acute) Chest pain (Acute) Chronic streptococcal tonsillitis (Resolved) Pharyngeal abscess (Resolved) The patient is a 34 year old F with a significant history of headaches presents emergency department with excruciating substernal constant chest pain that started while she was at work; headaches and seizure-like activity at emergency department. 1. Vertigo with episode of tonic-clonic seizure, nystagmus: Patient had 1 mg IV Ativan and was given Keppra 750 mg IV. MRI brain reported negative/normal. EEG does not show any epileptiform discharges or focus. CT head was unremarkable. SOC consult ordered. Pending Schedule meclizine 3 times daily Prolactin in normal range. Serum CK 78. Electrolytes within normal limit. K3.7. Magnesium 2.2. Patient was started on Keppra. I think her seizure may be precipitated by headache. Started on IV valproate and Decadron combination for headache relief. Headache not responding to Tylenol. Toradol 15 mg every 6 hourly as needed. Patient will need [facility] referral is in outpatient for right lateral rectus muscle strabismus. 2. Atypical chest pain, symptoms mainly anxiety: Chest pain increased with with deep breath and improves with sitting. Serial troponins are negative. EKG normal sinus rhythm at 72 bpm, no acute ST-T changes. DVT prophylaxis Subcutaneous Lovenox. Clinical Impression(s) from Imaging Studies Chest X-Ray 07/07/20 14:40 IMPRESSION: Stable, nonacute portable x-ray examination of the chest. Electronically Signed: Wolfgang London MD ([place]) at 14:56 EST , Service support , Brain CT 07/07/20 15:23 IMPRESSION: Negative head/brain CT without intravenous contrast. Electronically Signed: Wolfgang London MD (Bro[facility]) at 16:12 EST , Service support , Brain MRI 07/08/20 09:00 IMPRESSION: Negative unenhanced MRI of the brain. Electronically Signed: Donn Tucker MD at 11:19 EST , Service support , Inpatient E&M: [id number] Subs Hosp L2
--- NOTE | 2020-07-08 08:59 | TELEMED_ITS ---
SOC Telemed has confirmed receipt of a request for visit. This document confirms receipt of the order initiating the consult. To find the results of the consultation, please view the patient's reports for the scanned Telemed Consult.
--- NOTE | 2020-07-08 09:00 | MRI_ITS ---
STUDY: MRI BRAIN WITHOUT CONTRAST REASON FOR EXAM: Female, 34 years old. vertigo, pappas, seizure-like activity, no hx of seizures TECHNIQUE: Standardized multiplanar fat and water weighted pulse sequences were obtained. COMPARISON: Head CT dated July 07, 2020 FINDINGS: Normal size of the ventricles and extra-axial spaces for the patient''s age. Normal white matter tracts of the supratentorial brain. There is no evidence for recent intracranial ischemia or other cause of cytotoxic edema on diffusion weighted imaging (DWI). Normal T2* images of the brain without demonstrated susceptibility artifact. There is no demonstrated hemosiderin stain. Normal bilateral basal ganglia. Normal thalami. There is no extra-axial fluid accumulation. Normal flow voids within the major intracranial circulation suggesting patency by spin echo criteria. Normal sella turcica, pituitary gland, infundibular stalk, optic chiasm and hypothalamus. Normal tectal plate and pineal gland. Normal midbrain, bekah and medulla. Normal cerebellum. Normal basal cisterns. Normal bilateral temporal bones. Normal bilateral internal auditory canals. No demonstrated orbital abnormality, within the constraints of a routine brain study. Normal visualized paranasal sinuses. Normal calvarium and skull base. Normal visualized soft tissue structures. Normal visualized upper cervical spine. MRI/Brain without Contrast IMPRESSION: Negative unenhanced MRI of the brain. Electronically Signed: Donn Tucker MD at 11:19 EST , Service support ,
[2020-07-08] MEDS: MethylPREDNISolone 4 MG Tablet PO ×3 (09:24→16:55)
[2020-07-08] MEDS: 0.9% Saline Lock 10 ML Syringe IV ×4 (09:25→21:49)
[2020-07-08] MEDS: Loratadine 10 MG Tablet PO (09:25)
[2020-07-08] MEDS: Ondansetron 4 MG/2 ML Vial IV (09:36)
[2020-07-08 09:49] LABS: Magnesium 2.2 mg/dL (1.6-2.6)
[2020-07-08] MEDS: Ketorolac 15 MG/ML Vial IV (17:45)
[2020-07-08] MEDS: dexAMETHasone 4 MG/ML Vial IV ×2 (18:41→21:48)
[2020-07-09] VITALS (13 sets, daily range): BP systolic 81–103; BP diastolic 35–63; PULSE 52–83; RESP 14–18; TEMP 36.3–37.3; O2SAT 96–98
[2020-07-09] MEDS: 0.9% Saline Lock 10 ML Syringe IV ×4 (03:03→14:36)
[2020-07-09] MEDS: Ondansetron 4 MG/2 ML Vial IV (03:03)
[2020-07-09] MEDS: Ketorolac 15 MG/ML Vial IV ×3 (05:34→22:24)
[2020-07-09] MEDS: Meclizine HCl 25 MG Tablet PO ×3 (05:34→22:24)
[2020-07-09] MEDS: dexAMETHasone 4 MG/ML Vial IV ×3 (05:34→22:24)
[2020-07-09] MEDS: ETHINYL ESTRADIOL/DROSPIRENONE 1 EACH TABLET PO (09:38)
[2020-07-09] MEDS: Enoxaparin 40 MG/0.4 ML Syringe SC (09:38)
[2020-07-09] MEDS: Loratadine 10 MG Tablet PO (09:38)
[2020-07-09] MEDS: Acetaminophen 325 MG Tablet 650 MG PO (12:05)
[2020-07-09] MEDS: Lactated Ringers 1,000 ML 999 ML IV (12:48)
--- NOTE | 2020-07-09 13:40 | CT_ITS ---
STUDY: CTA HEAD AND NECK WITH CONTRAST REASON FOR EXAM: Female, 34 years old. DIZZINESS, HIGUERA, VERTIGO, SEIZURE, DIPLOPIA, RT LAT GAZE RADIATION DOSAGE (If Supplied By Facility): CTDIvol = ( 28.34 ) mGy, DLP = ( 1387.73 ) mGycm TECHNIQUE: CT angiography was performed with a multi-detector CT scanner. Data acquisition was obtained from the skull base through the vertex following intravenous administration of IV 100ML ISOVUE 370. MIP images were reconstructed from the axial data set. Post-processing of the angiographic images was performed, with multiplanar reformation and 3D reconstruction. Individualized dose optimization techniques were used for this CT. COMPARISON: Comparison is made with prior study dated 10/25/2018. FINDINGS: Normal bilateral petrous carotid arteries. Normal right cavernous carotid artery with a normal supraclinoid bifurcation. Normal left cavernous carotid artery with a normal supraclinoid bifurcation. Normal right A1 segments of the anterior cerebral artery. Normal left A1 segments of the anterior cerebral artery. Normal intact anterior communicating artery (ACOM). Normal bilateral A2 segments of the anterior cerebral arteries. Normal right M1 and M2 segments of the middle cerebral arteries, with a normal M1 bifurcation. Normal left M1 and M2 segments of the middle cerebral arteries, with a normal M1 bifurcation. Normal right posterior communicating artery (PCOM). Normal left posterior communicating artery (PCOM). Normal bilateral vertebral arteries. Normal basilar artery with a normal basilar bifurcation. The visualized bilateral superior cerebellar (SCA) arteries are normal. Normal bilateral P1, P2 and visualized P3 segments of the posterior cerebral arteries. There is no demonstrated aneurysm of the [place] of [place]. There is no demonstrated abnormality of the visualized brain. AORTIC ARCH: Normal visualized aortic arch. Normal origins of the brachiocephalic, left common carotid, and left subclavian arteries. RIGHT CAROTID ARTERIES: Normal right common carotid artery (CCA). Normal right common carotid bulb. Normal origin of the right internal carotid (ICA) artery without a hemodynamically significant stenosis. Normal visualized cervical portion of the right internal carotid artery. Normal origin of the right external carotid artery (ECA). LEFT CAROTID ARTERIES: Normal left common carotid artery (CCA). Normal left common carotid bulb. Normal origin of the left internal carotid (ICA) artery without a hemodynamically significant stenosis. Normal visualized cervical portion of the left internal carotid artery. Normal origin of the left external carotid artery (ECA). VERTEBRAL ARTERIES: Normal bilateral vertebral arteries. CT/CTA Head AND Neck W/ Contrast IMPRESSION: Normal CTA Head and neck with contrast. Electronically Signed: Marvin Richey MD at 14:33 EST , Service support ,
[2020-07-09] MEDS: proMETHazine 25 MG/ML Syringe 12.5 MG IV (14:35)
[2020-07-09] MEDS: Lactated Ringers 1,000 ML 100 ML IV (16:17)
--- NOTE | 2020-07-09 17:12 | PN_ITS ---
Patient Problems: Active and Suspected Problems (Last Reviewed 07/08/20 @ 02:[address] Guy Danielle MD) Vertigo (Acute) Chest pain (Acute) Reason for Visit: Follow-up for headache, dizziness, hypotension and seizure-like movement Objective: Seen and examined. As per the nursing staff, she still feels dizzy on walking and her knee buckled while going to bathroom. Her blood pressure also dropped to systolic 86/46, 81/44 and 1 L of Ringer lactate given. Blood pressure recovered 103/63. Physical exam General: Alert, Oriented x3, Cooperative HEENT: No diplopia on right and left extreme gaze. Possible right eye LR weakness. Atraumatic, PERRLA, Normocephalic Oral: No Gingival or Mucosal Lesions/ Ulcerations Neck: Supple, No JVD, Negative Carotid Bruits Lungs: Air entry diminished in bilateral lung bases. No crepitation/rhonchi Cardiovascular: Regular rate, Regular Rhythm, Normal S1, Normal S2, No murmurs Abdomen: Bowel Sounds Present, Soft, Non Tender, Non-Distended : No renal angle tenderness. No suprapubic tenderness. Extremities: No edema, Capillary Refill Less than 3 Seconds Skin: No rashes, No breakdown Musculoskeletal: No Tenderness to Palpation of Joints or Extremities Neurological: Cranial nerves II-XII grossly intact, Deep Tendon Reflexes 2+/4 and Symmetrical, Neuro grossly intact Psych/Mental Status: Normal Affect, Appropriate. Vitals/I&O's: Vital Signs Temp Pulse Resp BP Pulse Ox 98.8 F 57 L 14 103/63 97 07/09/20 13:00 07/09/20 14:51 07/09/20 13:00 07/09/20 13:00 07/09/20 13:00 Oxygen Delivery Method Room Air Weight: 141 lb 5.061 oz Body Mass Index (BMI) 22.8 Finger Stick Blood Glucose 87 Intake and Output for Last 24 Hours 07/07/20 07/08/20 07/09/20 23:59 23:59 23:59 Intake Total 1000 / 1480 1497.00 / 1697.00 3032.5 / 3032.5 Balance 1000 / 1480 1497.00 / 1697.00 3032.5 / 3032.5 Current Medications Acetaminophen (Acetaminophen 325 Mg Tablet) 650 mg PO Q6H PRN PRN PRN Reason: Pain Score 1-10/Temp > 100.7 F Last Admin: 07/09/20 12:05 Dose: 650 mg Documented by: Dexamethasone Sodium Phosphate (Dexamethasone 4 Mg/Ml Vial) 4 mg IV Q8 [facility] Last Admin: 07/09/20 14:35 Dose: 4 mg Documented by: Diphenhydramine HCl (Diphenhydramine 50 Mg/Ml Syringe) 25 mg IV Q8 [facility] Last Admin: 07/09/20 16:43 Dose: Not Given Documented by: Enoxaparin Sodium (Enoxaparin 40 Mg/0.4 Ml Syringe) 40 mg SC DAILY [facility] Last Admin: 07/09/20 09:38 Dose: 40 mg Documented by: Sodium Chloride () 250 mls @ 15 mls/hr IV .[id number] PRN PRN Reason: Saline Flush Last Infusion: 07/09/20 07:48 Dose: Infused Documented by: Sodium Chloride () 250 mls @ 15 mls/hr IV .[id number] PRN PRN Reason: Additional IVPB Infusion Magnesium Sulfate 2 gm/ Sodium (Chloride) 104 mls @ 52 mls/hr IV X1 ONE Stop: 07/09/20 17:59 Last Admin: 07/09/20 16:11 Dose: 52 mls/hr Documented by: Lactated Ringer's () 1,000 mls @ 100 mls/hr IV .Q10H [facility] Last Admin: 07/09/20 16:17 Dose: 100 mls/hr Documented by: Ketorolac Tromethamine (Ketorolac 15 Mg/Ml Vial) 15 mg IV Q8 [facility] Stop: 07/14/20 22:01 Loratadine (Loratadine 10 Mg Tablet) 10 mg PO DAILY [facility] Last Admin: 07/09/20 09:38 Dose: 10 mg Documented by: Lorazepam (Lorazepam 2 Mg/Ml Syringe) 1 mg IV X1 PRN PRN Reason: seizure-like activity Last Admin: 07/08/20 03:30 Dose: 1 mg Documented by: Lorazepam (Lorazepam 2 Mg/Ml Syringe) 1 mg IV X1 PRN PRN Reason: Seizure-like activity Meclizine HCl (Meclizine Hcl 25 Mg Tablet) 25 mg PO TID [facility] Last Admin: 07/09/20 14:37 Dose: 25 mg Documented by: Melatonin (Melatonin 3 Mg Tablet) 3 mg PO QHS PRN PRN PRN Reason: INSOMNIA Last Admin: 07/07/20 21:56 Dose: 3 mg Documented by: Ondansetron HCl (Ondansetron 4 Mg/2 Ml Vial) 4 mg IV Q8H PRN PRN PRN Reason: NAUSEA/VOMITING Last Admin: 07/09/20 03:03 Dose: 4 mg Documented by: Promethazine HCl (Promethazine 25 Mg/Ml Syringe) 12.5 mg IV Q8H [facility] Senna/Docusate Sodium (Senna/Docusate Sodium 1 Tablet) 2 tablet PO BID PRN PRN PRN Reason: Constipation Sodium Chloride (0.9% Saline Lock 10 Ml Syringe) 10 - 40 ml IV UD PRN PRN Reason: SALINE FLUSH Last Admin: 07/09/20 14:36 Dose: 20 ml Documented by: STROKE Vital Signs/Narrative: Vital Signs Pulse 07/09/20 14:51 57 L Medical Necessity - Tobacco Use Smoking Status: Never smoker Assessment/Plan All Active Problems (Last Reviewed 07/08/20 @ 02:[address] Guy Danielle MD) Vertigo (Acute) Chest pain (Acute) Chronic streptococcal tonsillitis (Resolved) Pharyngeal abscess (Resolved) The patient is a 34 year old F with a significant history of headaches presents emergency department with excruciating substernal constant chest pain that started while she was at work; headaches and seizure-like activity at emergency department. She took Cymbalta for about 1 to 2 weeks in May that was started by her PCP for headache. 1. Vertigo with episode of tonic-clonic seizure, nystagmus: Patient had 1 mg IV Ativan and was given Keppra 750 mg IV. MRI brain reported negative/normal. EEG does not show any epileptiform discharges or focus. CT head was unremarkable. SOC consult ordered. Pending Schedule meclizine 3 times daily Prolactin in normal range. Serum CK 78. Electrolytes within normal limit. K3.7. Magnesium 2.2. Patient was started on Keppra. I think her seizure may be precipitated by headache. Started on IV valproate and Decadron combination for headache relief. Headache not responding to Tylenol. Toradol 15 mg every 6 hourly as needed. Patient will need [facility] referral is in outpatient to evaluate for strabismus and possible right LR muscle weakness. 07/09: Seen by [facility] neurologist. Discussed with neurologist. She thinks he does not have organic neurological lesion but may be psychological or psychiatric or functional lesion. She advised to discontinue Depakote. Advised Benadryl, Phenergan along with Toradol for headache. Continue Decadron. CT angiogram of head and neck done and showed no acute change and reported normal. According to her, patient did not lose consciousness or awareness during seizure episode therefore probably pseudoseizure or medication side effect of Cymbalta. If patient gets further seizure episode recommended transfer to tertiary care for 24-hour EEG monitoring and inpatient neurology service. Discussed with the patient and her mother near the bedside. 2. Atypical chest pain, symptoms mainly anxiety: Chest pain increased with with deep breath and improves with sitting. Serial troponins are negative. EKG normal sinus rhythm at 72 bpm, no acute ST-T changes. DVT prophylaxis Subcutaneous Lovenox. Clinical Impression(s) from Imaging Studies Chest X-Ray 07/07/20 14:40 IMPRESSION: Stable, nonacute portable x-ray examination of the chest. Electronically Signed: Wolfgang London MD ([place]) at 14:56 EST , Service support , Brain CT 07/07/20 15:23 IMPRESSION: Negative head/brain CT without intravenous contrast. Electronically Signed: Wolfgang London MD ([place]) at 16:12 EST , Service support , Brain MRI 07/08/20 09:00 IMPRESSION: Negative unenhanced MRI of the brain. Electronically Signed: Donn Tucker MD at 11:19 EST , Service support , Inpatient E&M: [id number] Subs Hosp L2
[2020-07-09] MEDS: DiphenhydrAMINE 50 MG/ML Syringe 25 MG IV (22:24)
[2020-07-10] MEDS: Lactated Ringers 1,000 ML 100 ML IV (02:03)
[2020-07-10 02:59] VITALS: PULSE 50
[2020-07-10] MEDS: Acetaminophen 325 MG Tablet 650 MG PO (03:50)
[2020-07-10 03:52] VITALS: BP 93/51; PULSE 62; RESP 14; TEMP 36.6; O2SAT 98
[2020-07-10 06:06] LABS: Absolute Lymphocyte Count 1.12 X10^3/uL (0.83-4.51); Absolute Neutrophil Count 7.5 X10^3/uL (2.0-7.7); Basophil# 0.01 X10^3/uL; Basophil% 0.1 % (0-1); Hemoglobin 10.6 g/dL (12.0-15.0); Lymphocyte # 1.12 X10^3/ul (4.0); Lymphocyte % 12.1 % (19-41); Mean Corp Hgb Conc 33.1 g/dL (32-36); Mean Corpuscular Hgb 30.9 pg (27.0-32.0); Mean Corpuscular Volume 93.3 fL (81-99); Mean Platelet Vol. 9.9 fl (6.2-12.0); Monocyte# 0.64 X10^3/uL; Monocyte% 6.9 % (0-10); NRBC Flagged by Analyzer 0 % (0-5); Neutrophil # 7.46 X10^3/uL (2.7-7.7); Neutrophil % 80.3 % (47-70); Platelet Count 236 K/mm3 (150-450); RBC Distribution Width CV 12.6 % (11.6-14.6); RBC Distribution Width SD 43.8 fl (35.1-43.9); Red Blood Count 3.43 M/mm3 (4.2-5.4); White Blood Count 9.3 K/mm3 (4.4-11.0)
[2020-07-10 06:12] VITALS: BP 98/50
[2020-07-10] MEDS: Ketorolac 15 MG/ML Vial IV (06:18)
[2020-07-10] MEDS: Meclizine HCl 25 MG Tablet PO (06:18)
[2020-07-10] MEDS: dexAMETHasone 4 MG/ML Vial IV (06:18)
[2020-07-10] MEDS: DiphenhydrAMINE 50 MG/ML Syringe 25 MG IV (06:19)
[2020-07-10 06:34] LABS: ALB/GLOB Ratio 0.9 RATIO (0.9-2.4); AST(SGOT) 18 U/L (15-37); Alanine Aminotransfer ALT/SGPT 40 U/L (13-56); Albumin, Serum 2.3 g/dL (3.2-5.0); Alkaline Phosphatase 31 U/L (45-117); Anion Gap 6 (5-15); BUN 12 mg/dL (7-18); BUN/Creat Ratio 16.9 RATIO (10-20); Chloride 108 mmol/L (98-107); Creatinine, Serum 0.71 mg/dL (0.55-1.02); EST Glomerular Filtration Rate 100 mL/min (>60); Est Glom Filt Rate - Afr Amer 121 mL/min (>60); Estimated Creatinine Clearance 104.52 ml/min; Globulin 2.6 g/dL (2.2-4.2); Glucose 107 mg/dL (74-106); Potassium 4.1 mmol/L (3.5-5.1); Protein, Total 4.9 g/dL (6.4-8.2); Sodium Level 140 mmol/L (136-145)
[2020-07-10 07:03] VITALS: PULSE 85
[2020-07-10 08:40] VITALS: BP 100/57; PULSE 60; RESP 16; TEMP 37; O2SAT 97
[2020-07-10] MEDS: Loratadine 10 MG Tablet PO (09:59)
[2020-07-10] MEDS: ETHINYL ESTRADIOL/DROSPIRENONE 1 EACH TABLET PO (09:59)
[2020-07-10] MEDS: Enoxaparin 40 MG/0.4 ML Syringe SC (09:59)
--- NOTE | 2020-07-10 11:38 | PCM.DC ---
- Discharge Diagnoses Current Active Problems: Current Active and Chronic Problems (Last Reviewed 07/08/20 @ 02:[address] Guy Danielle MD) Vertigo (Acute) Tension headache (Chronic) Migraines (Chronic) Seasonal allergies (Chronic) Chest pain (Acute) Dysconjugate gaze (Chronic) You will use the following diet at home:: Regular Your liquids should be the consistency of: Regular/Thin Discharge Activity: May Not Drive - At least for 2 weeks until she sees PCP Call your doctor if you observe: Fever of 101 or Higher, Numbness or Tingling, Inability to urinate, Inability to have a bowel movement, Using more than one pad per hour, Shortness of breath, Dizziness, Fainting spells, Swelling in the ankles, Chest pain, Prolonged hiccoughing, Increased palpitations (irregular heartbeat), Calf discomfort, Uncontrolled pain Allergies/Adverse Reactions: Allergies Latex, Natural Rubber Allergy (Mild, Verified 07/07/20 13:53) Rash Medications to take at Discharge Cetirizine HCl [Zyrtec] 10 mg PO DAILY 10/25/18 drospirenone 3 mg-ethinyl estradiol 0.03 mg tablet 1 tab PO QHS 05/15/20 Ketorolac [Toradol] 10 mg PO Q6H PRN #20 tab 07/10/20 Meclizine HCl [Antivert] 25 mg PO Q6H PRN PRN #30 tab 07/10/20 Ondansetron HCl [Zofran] 4 mg PO 4X/DAY PRN PRN #30 tab 07/10/20 The following prescriptions were given: Meclizine HCl [Antivert] 25 mg PO Q6H PRN PRN #30 tab PRN Reason: vertigo/dizziness [id number] Ketorolac [Toradol] 10 mg PO Q6H PRN #20 tab PRN Reason: severe headache Transmission Status[facility] Ondansetron HCl [Zofran] 4 mg PO 4X/DAY PRN PRN #30 tab PRN Reason: nausea/vomiting Transmission Status[facility] Primary Care Physician: Chary Sandoval MD [Primary Care Provider] - Please follow up with your Primary Care Physician in: In 1 to 2 weeks Test Results: Test results from this visit will be discussed in further detail at your follow-up appointment, if applicable. Please Follow Up With: Clive Yan MD When: [facility] [place] Please Follow Up With: Familia Amanda MD When: For headache in 2 weeks
--- NOTE | 2020-07-10 11:39 | PCM.DC.SUM ---
Discharge Date and Diagnosis - Problem List Patient Problems: Active and Suspected Problems (Last Reviewed 07/08/20 @ 02:[address] Guy Danielle MD) Vertigo (Acute) Chest pain (Acute) Date of Admission: 07/07/20 Date of Discharge: 07/10/20 - Primary Discharge Diagnosis Acute Problems: Active Problems (Last Reviewed 07/08/20 @ 02:[address] Guy Danielle MD) Vertigo (Acute) Chest pain (Acute) - Secondary Discharge Diagnosis Chronic Problems: Chronic Problems (Last Reviewed 07/08/20 @ 02:[address] Guy Danielle MD) Tension headache (Chronic) Migraines (Chronic) Seasonal allergies (Chronic) Dysconjugate gaze (Chronic) Hospital Course and Treatment Operations: None Summary of Care Provided: The patient is a 34 year old F with a significant history of headaches presents emergency department with excruciating substernal constant chest pain that started while she was at work; headaches and seizure-like activity at emergency department. She took Cymbalta for about 1 to 2 weeks in May that was started by her PCP for headache. 1. Vertigo with episode of tonic-clonic seizure, nystagmus: Patient had 1 mg IV Ativan and was given Keppra 750 mg IV. MRI brain reported negative/normal. EEG does not show any epileptiform discharges or focus. CT head was unremarkable. Schedule meclizine 3 times daily. Prolactin in normal range. Serum CK 78. Electrolytes within normal limit. K3.7. Magnesium 2.2. Patient was started on Keppra. It was changed to IV valproate and Decadron combination for headache relief but patient did not get relief with IV Depakote therefore discontinued. Patient was seen by [facility] neurologist. Discussed with neurologist. She thinks he does not have organic neurological lesion but may be psychological or psychiatric or functional lesion. Advised Benadryl, Phenergan along with Toradol for headache. Decadron was continued. CT angiogram of head and neck done and showed no acute change and reported normal. According to her, patient did not lose consciousness or awareness during seizure episode therefore probably pseudoseizure or medication side effect of Cymbalta. Patient did not had any further seizure episode therefore did not need transfer to tertiary care with 24-hour EEG monitoring. 2. Atypical chest pain, symptoms mainly anxiety: Chest pain increased with with deep breath and improves with sitting. Serial troponins are negative. EKG normal sinus rhythm at 72 bpm, no acute ST-T changes. DVT prophylaxis Subcutaneous Lovenox. Discharge medication reconciliation done. Discharge follow-up instructions completed. Discharge process discussed with the patient and all questions were answered to patient's satisfaction. Patient discharged on Toradol, Zofran and Antivert. Patient already has cetirizine therefore Benadryl was not given. Patient is discharged to follow-[facility] with the [facility] for possible strabismus/diplopia. Total time spent, exact 35 minutes on discharge meds reconciliation, examination, coordination of care with nurses and ancillary staff, review of imaging and blood test and discussion with the patient on follow-up instructions. Patient Problems: Active and Suspected Problems (Last Reviewed 07/08/20 @ 02:[address] Guy Danielle MD) Vertigo (Acute) Chest pain (Acute) Objective: Seen and examined. Heart rate is normal. Blood pressure on lower side, BP 100/57 but patient does not have symptoms pertaining to hypotension. Patient blood pressure has been in 80s to 100s during hospital course. Patient still closes her eyes. Physical exam General: Alert, Oriented x3, Cooperative HEENT: No diplopia on extreme right gaze. Possible right eye LR weakness. Atraumatic, PERRLA, Normocephalic Oral: No Gingival or Mucosal Lesions/ Ulcerations Neck: Supple, No JVD, Negative Carotid Bruits Lungs: Air entry diminished in bilateral lung bases. No crepitation/rhonchi Cardiovascular: Regular rate, Regular Rhythm, Normal S1, Normal S2, No murmurs Abdomen: Bowel Sounds Present, Soft, Non Tender, Non-Distended : No renal angle tenderness. No suprapubic tenderness. Extremities: No edema, Capillary Refill Less than 3 Seconds Skin: No rashes, No breakdown Musculoskeletal: No Tenderness to Palpation of Joints or Extremities Neurological: Cranial nerves II-XII grossly intact, Deep Tendon Reflexes 2+/4 and Symmetrical, Neuro grossly intact Psych/Mental Status: Mild anxiety. - Physical Exam Vitals/I&O's: Vital Signs Temp Pulse Resp BP Pulse Ox 98.6 F 60 16 100/57 L 97 07/10/20 08:40 07/10/20 08:40 07/10/20 08:40 07/10/20 08:40 07/10/20 08:40 Oxygen Delivery Method Room Air Weight: 141 lb 5.061 oz Body Mass Index (BMI) 22.8 Finger Stick Blood Glucose 87 Intake and Output for Last 24 Hours 07/08/20 07/09/20 07/10/20 23:59 23:59 23:59 Intake Total 1497.00 / 1697.00 3576.5 / 3576.5 1216.67 / 1216.67 Balance 1497.00 / 1697.00 3576.5 / 3576.5 1216.67 / 1216.67 Microbiology Past 72 Hours 07/08/20 12:02 Urine, Clean Catch Urine Culture - Final Mixed Gram Positive Organisms Laboratory Results 07/10/20 05:36: WBC 9.3, RBC 3.43 L, Hgb 10.6 L, Hct 32.0 L, MCV 93.3, MCH 30.9, MCHC 33.1, RDW Std Deviation 43.8, RDW Coeff of [place] 12.6, Plt Count 236, MPV 9.9, Immature Gran % (Auto) 0.600, Neut % (Auto) 80.3 H, Lymph % (Auto) 12.1 L, Dickens % (Auto) 6.9, Eos % (Auto) 0.0, Baso % (Auto) 0.1, Absolute Neuts (auto) 7.5, Absolute Lymphs (auto) 1.12, Nucleated RBC % 0 07/10/20 05:36: Sodium 140, Potassium 4.1, Chloride 108 H, Carbon Dioxide 26.0, Anion Gap 6, BUN 12, Creatinine 0.71, Estim Creat Clear Calc 104.52, Est GFR (MDRD) Af Amer 121, Est GFR (MDRD) Non-Af 100, BUN/Creatinine Ratio 16.9, Glucose 107 H, Calcium 8.0 L, Total Bilirubin 0.30, AST 18, ALT 40, Alkaline Phosphatase 31 L, Total Protein 4.9 L, Albumin 2.3 L, Globulin 2.6, Albumin/Globulin Ratio 0.9 Current Medications Acetaminophen (Acetaminophen 325 Mg Tablet) 650 mg PO Q6H PRN PRN PRN Reason: Pain Score 1-10/Temp > 100.7 F Last Admin: 07/10/20 03:50 Dose: 650 mg Documented by: Dexamethasone Sodium Phosphate (Dexamethasone 4 Mg/Ml Vial) 4 mg IV Q8 [facility] Last Admin: 07/10/20 06:18 Dose: 4 mg Documented by: Diphenhydramine HCl (Diphenhydramine 50 Mg/Ml Syringe) 25 mg IV Q8 [facility] Last Admin: 07/10/20 06:19 Dose: 25 mg Documented by: Enoxaparin Sodium (Enoxaparin 40 Mg/0.4 Ml Syringe) 40 mg SC DAILY [facility] Last Admin: 07/10/20 09:59 Dose: 40 mg Documented by: Sodium Chloride () 250 mls @ 15 mls/hr IV .[id number] PRN PRN Reason: Saline Flush Last Infusion: 07/09/20 07:48 Dose: Infused Documented by: Sodium Chloride () 250 mls @ 15 mls/hr IV .[id number] PRN PRN Reason: Additional IVPB Infusion Lactated Ringer's () 1,000 mls @ 100 mls/hr IV .Q10H [facility] Last Admin: 07/10/20 02:03 Dose: 100 mls/hr Documented by: Ketorolac Tromethamine (Ketorolac 15 Mg/Ml Vial) 15 mg IV Q8 [facility] Stop: 07/14/20 22:01 Last Admin: 07/10/20 06:18 Dose: 15 mg Documented by: Loratadine (Loratadine 10 Mg Tablet) 10 mg PO DAILY [facility] Last Admin: 07/10/20 09:59 Dose: 10 mg Documented by: Lorazepam (Lorazepam 2 Mg/Ml Syringe) 1 mg IV X1 PRN PRN Reason: seizure-like activity Last Admin: 07/08/20 03:30 Dose: 1 mg Documented by: Lorazepam (Lorazepam 2 Mg/Ml Syringe) 1 mg IV X1 PRN PRN Reason: Seizure-like activity Meclizine HCl (Meclizine Hcl 25 Mg Tablet) 25 mg PO TID [facility] Last Admin: 07/10/20 06:18 Dose: 25 mg Documented by: Melatonin (Melatonin 3 Mg Tablet) 3 mg PO QHS PRN PRN PRN Reason: INSOMNIA Last Admin: 07/07/20 21:56 Dose: 3 mg Documented by: Ondansetron HCl (Ondansetron 4 Mg/2 Ml Vial) 4 mg IV Q8H PRN PRN PRN Reason: NAUSEA/VOMITING Last Admin: 07/09/20 03:03 Dose: 4 mg Documented by: Promethazine HCl (Promethazine 25 Mg/Ml Syringe) 12.5 mg IV Q8H [facility] Last Admin: 07/10/20 06:19 Dose: Not Given Documented by: Senna/Docusate Sodium (Senna/Docusate Sodium 1 Tablet) 2 tablet PO BID PRN PRN PRN Reason: Constipation Sodium Chloride (0.9% Saline Lock 10 Ml Syringe) 10 - 40 ml IV UD PRN PRN Reason: SALINE FLUSH Last Admin: 07/09/20 14:36 Dose: 20 ml Documented by: Discharge Activity: May Not Drive - At least for 2 weeks until she sees PCP Call your doctor if you observe: Fever of 101 or Higher, Numbness or Tingling, Inability to urinate, Inability to have a bowel movement, Using more than one pad per hour, Shortness of breath, Dizziness, Fainting spells, Swelling in the ankles, Chest pain, Prolonged hiccoughing, Increased palpitations (irregular heartbeat), Calf discomfort, Uncontrolled pain Home Medications: Medications to take at Discharge Cetirizine HCl [Zyrtec] 10 mg PO DAILY 10/25/18 drospirenone 3 mg-ethinyl estradiol 0.03 mg tablet 1 tab PO QHS 05/15/20 Ketorolac [Toradol] 10 mg PO Q6H PRN #20 tab 07/10/20 Meclizine HCl [Antivert] 25 mg PO Q6H PRN PRN #30 tab 07/10/20 Ondansetron HCl [Zofran] 4 mg PO 4X/DAY PRN PRN #30 tab 07/10/20 Following Prescriptions Were Given to Patient: Meclizine HCl [Antivert] 25 mg PO Q6H PRN PRN #30 tab PRN Reason: vertigo/dizziness Transmission Status: Received by [id number] Ketorolac [Toradol] 10 mg PO Q6H PRN #20 tab PRN Reason: severe headache Transmission Status: Received by [id number] Ondansetron HCl [Zofran] 4 mg PO 4X/DAY PRN PRN #30 tab PRN Reason: nausea/vomiting Transmission Status: Received by [id number] Primary Care Physician: Chary Sandoval MD [Primary Care Provider] - Please follow up with your Primary Care Physician in: In 1 to 2 weeks Please Follow Up With: Clive Yan MD When: [facility] [place] Please Follow Up With: Familia Amanda MD When: For headache in 2 weeks Medical Necessity - Tobacco Use Smoking Status: Never smoker Meaningful Use Info Meaningful Use Diagnoses (Choose all that apply): None applicable Inpatient E&M: [id number] [facility]
--- NOTE | 2020-07-10 12:25 | PHA.DC.MC ---
Pharmacy Service has performed discharge medication reconciliation and counseling for this patient. 1. KETOROLAC 10MG PO Q6H PRN SEVERE HEADACHE 2. MECLIZINE 25MG PO Q6H PRN VERTIGO/DIZZINESS 3. ONDANSETRON 4MG PO 4X/DAY PRN NAUSEA/VOMITING The patient's discharge medication list was reviewed for discrepancies and discrepancies were resolved. Patient advised to hold cetirizine while taking meclizine. Home Medications Cetirizine HCl [Zyrtec] 10 mg PO DAILY 10/25/18 drospirenone 3 mg-ethinyl estradiol 0.03 mg tablet 1 tab PO QHS 05/15/20 Ketorolac [Toradol] 10 mg PO Q6H PRN #20 tab 07/10/20 Meclizine HCl [Antivert] 25 mg PO Q6H PRN PRN #30 tab 07/10/20 Ondansetron HCl [Zofran] 4 mg PO 4X/DAY PRN PRN #30 tab 07/10/20 The patient was counseled on the following discharge medications and changes in medications for homegoing were reviewed. The Reason for Use, instructions for use, and potential side effects were reviewed for all new medications. The patient's questions regarding all of their medications were answered. The patient was able to verbally demonstrate an understanding of their discharge medications.
== END 2020-07-10 11:38 | disposition home or self-care (01) ==
LOC: ED 14:38 → PCU 19:32
PROVIDERS: Admitting Provider Hospitalist; Emergency Provider Emergency Medicine; PCP Internal Medicine; Visit Provider Internal Medicine
DX: R42 Dizziness and giddiness (principal); R56.9 Unspecified convulsions; R00.2 Palpitations; F41.9 Anxiety disorder, unspecified; R07.89 Other chest pain; G43.909 Migraine, unspecified, not intractable, without status migrainosus; Z79.899 Other long term (current) drug therapy; Z79.52 Long term (current) use of systemic steroids; H55.00 Unspecified nystagmus
CPT/HCPCS: 36415; 70450; 70496; 70498; 70551; 71045; 80048; 80053; 81001; 82550; 83735; 84146; 84484; 84703; 85025; 85379; 87086; 87088; 93005; 95819; 96361; 96365; 96366; 96367; 96372; 96375; 96376; 99218; 99285; J7030; J7040; J7050; J7120; Q9967; A4216; G0378; J2405

== ENCOUNTER → 2020-07-16 13:45 | Outpatient (CLI) | payer OTHER, SELFPAY ==
[2020-07-07 20:18] VITALS: BMI 22.8
--- NOTE | 2020-07-16 14:30 | MRI_ITS ---
STUDY: MRI ORBITS WITH AND WITHOUT CONTRAST REASON FOR EXAM: Female, 34 years old. 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 15ml IV Dotarem was administered for the contrast portion of the examination. COMPARISON: None. FINDINGS: Normal bilateral globes. Normal bilateral optic nerve sheath complexes and optic nerves. Normal bilateral intraconal and extraconal spaces. Normal bilateral extraocular muscles. Normal optic chiasm and post-chiasmatic tracts. Normal sella turcica, pituitary gland, infundibular stalk, and hypothalamus. Normal bilateral cavernous sinuses. Normal tectal plate and pineal gland. Normal flow voids within the major intracranial circulation suggesting patency by spin echo criteria. Normal size of the ventricles and extra-axial spaces for the patient''s age. Normal white matter tracts of the supratentorial brain. Normal bilateral basal ganglia. Normal thalami. There is no extra-axial fluid accumulation. Normal midbrain, bekah and medulla. Normal cerebellum. Normal basal cisterns. MRI/Brain W/WO Contrast IMPRESSION: Normal enhanced and unenhanced MRI of the orbits. Electronically Signed: Marty Gilmore MD at 16:16 EST Tel , Service support ,
--- NOTE | 2020-07-16 14:30 | MRI_ITS ---
STUDY: MRA OF THE HEAD WITHOUT CONTRAST REASON FOR EXAM: Female, 34 years old. Severe H/A, LEFT 6th nerve palsey -- Attn: to cavernous sinus and brainstem TECHNIQUE: 3-D nbqt-mu-dathis (TOF) imaging was performed with MIPs. The study was performed unenhanced. COMPARISON: None. FINDINGS: Normal bilateral petrous carotid arteries. Normal right cavernous carotid artery with a normal supraclinoid bifurcation. Normal left cavernous carotid artery with a normal supraclinoid bifurcation. Normal right A1 segments of the anterior cerebral artery. Normal left A1 segments of the anterior cerebral artery. Normal intact anterior communicating artery (ACOM). Normal bilateral A2 segments of the anterior cerebral arteries. Normal right M1 and M2 segments of the middle cerebral arteries, with a normal M1 bifurcation. Normal left M1 and M2 segments of the middle cerebral arteries, with a normal M1 bifurcation. Normal right posterior communicating artery (PCOM). Normal left posterior communicating artery (PCOM). Normal bilateral vertebral arteries. Normal basilar artery with a normal basilar bifurcation. The visualized bilateral superior cerebellar (SCA) arteries are normal. Normal bilateral P1, P2 and visualized P3 segments of the posterior cerebral arteries. There is no demonstrated aneurysm of the [place]. There is no major vessel occlusion or hemodynamically significant stenosis. There is no demonstrated abnormality of the visualized brain. MRI/MRA Head ONLY without Contrast IMPRESSION: Normal MRA of the head Electronically Signed: Marty Gilmore MD at 16:16 EST Tel , Service support ,
== END ==
PROVIDERS: PCP Internal Medicine; Referring Provider Ophthalmology; Visit Provider Ophthalmology
DX: R51.9 Headache, unspecified (principal); H49.22 Sixth [abducent] nerve palsy, left eye
CPT/HCPCS: 70544; 70553; A9575

== ENCOUNTER 2021-03-19 06:06 | Emergency (ER) | payer OTHER, SELFPAY ==
[2021-03-19 06:07] VITALS: BP 131/96; PULSE 105; RESP 17; TEMP 36.9; O2SAT 98; BMI 27.9
[2021-03-19 06:10] VITALS: BMI 27.9
--- NOTE | 2021-03-19 06:11 | RAD_ITS ---
STUDY: X-RAY CHEST REASON FOR EXAM: Female, 35 years old. Neuro deficit, acute, stroke suspected TECHNIQUE: Single AP portable view of the chest. COMPARISON: July 07, 2020 chest x-ray FINDINGS: The lungs are clear and expanded. There is no demonstrated pleural abnormality. Normal size heart. Normal mediastinum and [place]. Normal visualized pulmonary arteries. Normal visualized aortic arch and descending thoracic aorta. Normal visualized thoracic spine. Normal visualized ribs, clavicles, and shoulders. There is no demonstrated abnormality of the visualized soft tissue structures of the upper abdomen. RAD/Chest 1 View IMPRESSION: Normal x-ray examination of the chest. Electronically Signed: Brittani Bullock MD at 6:44 EDT Tel , Service support ,
--- NOTE | 2021-03-19 06:11 | EKG12_ITS ---
Test Reason : NEURO Blood Pressure : / mmHG Vent. Rate : 082 BPM Atrial Rate : 082 BPM P-R Int : 134 ms QRS Dur : 096 ms QT Int : 408 ms P-R-T Axes : 065 081 049 degrees QTc Int : 476 ms Normal sinus rhythm Normal ECG Confirmed by MELVA BILLINGSLEY, LILIBETH ([id number]), assignment desk editor SAE RUIZ ([id number]) on 03/20/2021 9:00:18 AM Referred By: Confirmed By:LILIBETH FRYE MD
--- NOTE | 2021-03-19 06:11 | CT_ITS ---
We are attempting to reach an attending provider to discuss findings. An addendum with communication details will be sent when the communication is complete. STUDY: CT HEAD STROKE PROTOCOL W/O CONTRAST INJECTION REASON FOR EXAM: Female, 35 years old. Neuro deficit, acute, stroke suspected RADIATION DOSAGE (If Supplied By Facility): CTDIvol = ( ) mGy, DLP = ( ) mGycm TECHNIQUE: Transaxial CT imaging of the brain was performed without administration of intravenous contrast material. Individualized dose optimization techniques were used for this CT. COMPARISON: MRI brain July 16, 2020 FINDINGS: Normal soft tissue structures. Normal calvarium. Normal size ventricles and extra-axial spaces for the patient''s age. Normal white matter tracts of the cerebral hemispheres. Normal basal ganglia and thalami. Normal brainstem. Normal cerebellum. There is no intracranial hemorrhage. There are no findings of an acute ischemic infarction. Normal visualized paranasal sinuses. ASPECT score: 10 CT/STROKE Brain/Head without Cont IMPRESSION: Normal unenhanced CT scan of the brain. Electronically Signed: Brittani Bullock MD at 6:56 EDT Tel , Service support ,
--- NOTE | 2021-03-19 06:12 | CT_ITS ---
We are attempting to reach an attending provider to discuss findings. An addendum with communication details will be sent when the communication is complete. STUDY: CTA HEAD AND NECK WITH CONTRAST REASON FOR EXAM: Female, 35 years old. Neuro deficit, acute, stroke suspected -- Occipital pain, disconjugate gaze, dysmetria RADIATION DOSAGE (If Supplied By Facility): CTDIvol = ( 16.24 ) mGy, DLP = ( 580.18 ) mGycm TECHNIQUE: CT angiography was performed with a multi-detector CT scanner. Data acquisition was obtained from the skull base through the vertex following intravenous administration of IV 100mL [id number]-370. MIP images were reconstructed from the axial data set. Post-processing of the angiographic images was performed, with multiplanar reformation and 3D reconstruction. Individualized dose optimization techniques were used for this CT. COMPARISON: MRI brain July 16, 2020, MR orbits July 16, 2020 history of left 6th and 6th nerve positive the severe headache, CT angiogram brain MRI 2020 history of dizziness headache vertigo seizure diplopia right lateral gaze FINDINGS: Normal bilateral petrous carotid arteries. Normal right cavernous carotid artery with a normal supraclinoid bifurcation. Normal left cavernous carotid artery with a normal supraclinoid bifurcation. Normal right A1 segments of the anterior cerebral artery. Normal left A1 segments of the anterior cerebral artery. Normal intact anterior communicating artery (ACOM). Normal bilateral A2 segments of the anterior cerebral arteries. Normal right M1 and M2 segments of the middle cerebral arteries, with a normal M1 bifurcation. Normal left M1 and M2 segments of the middle cerebral arteries, with a normal M1 bifurcation. Normal right posterior communicating artery (PCOM). Normal left posterior communicating artery (PCOM). Normal bilateral vertebral arteries. Normal basilar artery with a normal basilar bifurcation. The visualized bilateral superior cerebellar (SCA) arteries are normal. Normal bilateral P1, P2 and visualized P3 segments of the posterior cerebral arteries. There is no demonstrated aneurysm of the [place]. There is no demonstrated abnormality of the visualized brain. AORTIC ARCH: Normal visualized aortic arch. Normal origins of the brachiocephalic, left common carotid, and left subclavian arteries. RIGHT CAROTID ARTERIES: Normal right common carotid artery (CCA). Normal right common carotid bulb. Normal origin of the right internal carotid (ICA) artery without a hemodynamically significant stenosis. Normal visualized cervical portion of the right internal carotid artery. Normal origin of the right external carotid artery (ECA). LEFT CAROTID ARTERIES: Normal left common carotid artery (CCA). Normal left common carotid bulb. Normal origin of the left internal carotid (ICA) artery without a hemodynamically significant stenosis. Normal visualized cervical portion of the left internal carotid artery. Normal origin of the left external carotid artery (ECA). VERTEBRAL ARTERIES: Normal bilateral vertebral arteries. CT/STROKE CTA Head AND Neck W/Con IMPRESSION: Normal CTA Head and neck with contrast. Electronically Signed: Brittani Bullock MD at 7:00 EDT Tel , Service support ,
[2021-03-19 06:15] VITALS: O2SAT 98
--- NOTE | 2021-03-19 06:15 | ED.VIS.STROK ---
HPI History of Present Illness Chief Complaint: Neuro S/Sx Detail of Chief Complaint: Bilateral occipital pain, disconjugate gaze Informant: patient and spouse/S.O. Onset/Context/Timing Onset: Hours Context: Sudden Onset Timing: Continuous and Waxes and wanes Quality and Location: Negative for Right Facial Droop, Left Facial Droop, Right Face Paresthesia, Left Face Parasthesia, Right Arm Parasthesia, Left Arm Parasthesia, Right Leg Parasthesia, Left Leg Parasthesia, Right Arm Weakness, Left Arm Weakness, Right Leg Weakness, Left Leg Weakness, Slurred Speech (Stuttering speech) and Receptive Aphasia Onset: 0515 while making coffee Current Severity: Read HPI Maximum Severity: Read HPI Worsened by: Nothing Relieved by: Nothing Associated Symptoms Associated Symptoms: Positive for Headache; Negative for Nausea, Vomiting and Chest Pain Narrative Narrative: Patient is a 35-year-old female who presents with bilateral occipital pain. Onset at 0515 while making coffee. Patient is on gabapentin. Doses 300 mg 3 times daily. She states she has blurred vision when attempted to perform [id number] on the left side. She stutters when she responds to my questions. She is tachycardic. She is hyperventilating. Prior similar symptoms: No Recent Illness/Hospitalization: No PFSH PFSH Medical History Migraine, unspecified, intractable, without status migrainosus Migraines Seasonal allergies Tension headache Home Medications drospirenone-ethinyl estradiol 1 tab DAILY 03/19/21 [History Last Taken Unknown] gabapentin 600 mg BID 03/19/21 [History Last Taken Unknown] zonisamide 200 mg PO Q12H 03/19/21 [History Last Taken Unknown] Allergy/AdvReac Type Severity Reaction Status Date / Time Latex, Natural Rubber Allergy Mild Rash Verified 03/19/21 06:14 duloxetine [From Cymbalta] Allergy tremors, Verified 03/19/21 06:14 rash Family History Grandfather Anxiety CVA (cerebral vascular accident) Mother Thyroid disorder Surgical History History of adenoidectomy History of tonsillectomy Social History (Updated 03/19/21 @ 06:[address] Drake Tom MD) household members: significant other and children Smoking Status: Never smoker Electronic Cigarette Use: not used second hand exposure: No alcohol intake: never substance use type: does not use what type of physical activity do you participate in: none ROS ROS ED Constitutional Constitutional ED: Denies chills, fever(s), subjective or sweats Eyes Eyes: Reports blurry vision; Denies diplopia ENT ENT ED: Reports other Details: Denies tinnitus ; Denies ear pain, rhinorrhea or sore throat Cardiovascular Cardiovascular: Denies chest pain or palpitations Respiratory/Chest Respiratory/Chest: Denies cough, dyspnea or dyspnea on exertion Gastrointestinal Gastrointestinal: Reports nausea; Denies abdominal pain, diarrhea or vomiting Genitourinary Genitourinary ED: Denies dysuria, hematuria or urinary frequency Musculoskeletal Musculoskeletal: Reports neck pain; Denies arthralgias, back pain or myalgias Integumentary Denies rash Neurologic Neurologic: Reports headache(s); Denies paresthesias or weakness Psychiatric Psychiatric: Reports anxiety Hematologic/Lymphatic Hematologic/Lymphatic: Denies easy bleeding or easy bruising EXAM Physical Exam Const Vital Signs: 03/19/21 06:07 03/19/21 06:15 03/19/21 06:41 Temperature 98.4 F Temperature Source Temporal Pulse Rate 105 H 80 Respiratory Rate 17 17 Blood Pressure 131/96 H 101/71 Blood Pressure Mean 107 81 Pulse Ox 98 98 99 Oxygen Delivery Method Room Air Room Air Room Air Positive well nourished and well developed General Appearance ED: well developed and other Patient is crying. Eyes are closed. She is holding the back of her head. She is breathing rapidly and somewhat erratically. HEENT Reports TM's clear and moist mucous membranes atraumatic Nose: other Other Details: Head is normocephalic. Ears are normal. Patient has disconjugate gaze. Reviewing problem list indicates she has had disconjugate gaze in the past. She also has history of migraines, tension headache and occipital neuralgia. Tympanic Membrane ED: Yes TM's clear Eyes PERRL; Negative for EOMs intact bilaterally Eyes Narrative: When the hint test in the eye askew test were performed the left eye was deviated slightly downward and to the nasal side and the right eye was looking straight ahead. There was no change with either maneuver. She complained of neck pain when the hint test was performed General Eye ED: Negative for pale conjunctiva or scleral icterus Neck no lymphadenopathy, supple and no JVD General: tenderness Resp normal respiratory effort and clear to auscultation bilaterally Cardio no murmurs Rate: tachycardic Rhythm: regular rhythm Heart Sounds: S1 normal and S2 normal GI normal to inspection, nondistended, normoactive bowel sounds, soft to palpation and non-tender Back/Spine no CVA tenderness General Back: other Cervical Spine: cervical spine tenderness Thoracic Spine / Upper Back: Negative for thoracic spinal tenderness Extremity normal to inspection General Extremety ED: Negative for deformity, edema or tenderness General Extremity: Negative for deformity or edema Neuro oriented x3, No CN's II-XII intact bilaterally and no sensory deficits noted Neuro Narrative: There is dysmetria noted left upper extremity only. Romberg test with eyes open and close patient's weight slightly posteriorly. No abnormality noted on the right side. She touched her forehead using the left upper extremity. Neville Coma Scale: document GCS findings Sensorium / Orientation: alert Motor Exam: strength 5/5 throughout Psych Mood & Affect: anxious Skin no wounds General Skin Exam: Negative for jaundice Lesions: no lesions Rashes: no rashes STROKE Vital Signs/Narrative: Vital Signs Temp Pulse Resp BP Pulse Ox 03/19/21 06:41 80 17 101/71 99 03/19/21 06:15 98 03/19/21 06:07 98.4 F 105 H 17 131/96 H 98 MDM MDM MDM Narrative Medical decision making narrative: With pain bilaterally and abnormal findings this may represent a vertebral basilar artery dissection. This may also represent atypical migraine since she has history of migraines. Apparently the disconjugate gaze is not new per old records. Furthermore she has a history of conversion disorder. This may represent a conversion disorder. The fact that the patient's daughters makes this more likely a conversion disorder versus dissection versus bleed versus other abnormalities. Review of prior records indicates the patient had an MRI and MRA in July. These studies were negative. There is no evidence of aneurysm. Once I was aware there was no evidence of dissection patient was treated with 50 mg of Toradol, 10 mg Reglan 25 mg of diphenhydramine for headache. I was informed by the nurse that she was pushing the medicine she states her headache was resolving. The headache has returned but not as severe. Patient was informed of results. She was informed that I am concerned this represents a conversion reaction. She understood. She states she has been diagnosed with conversion reaction in the past. Lab Data Attestation: I reviewed the patient's lab results. Lab results narrative: Laboratory results are normal with the exception of a creatinine of 1.07. Her GFR is 62. Labs: Laboratory Results - last 24 hr 03/19/21 03/19/21 03/19/21 06:15 06:15 06:15 WBC 9.3 RBC 4.60 Hgb 13.8 Hct 41.7 MCV 90.7 MCH 30.0 MCHC 33.1 RDW Std Deviation 43.4 RDW Coeff of Rashaun 13.0 Plt Count 325 MPV 9.5 Immature Gran % (Auto) 0.400 Neut % (Auto) 49.3 Lymph % (Auto) 38.4 [place] % (Auto) 10.4 H Eos % (Auto) 1.1 Baso % (Auto) 0.4 Absolute Neuts (auto) 4.6 Absolute Lymphs (auto) 3.56 Nucleated RBC % 0 PT 12.0 INR 0.9 APTT 27.3 Sodium 141 Potassium 3.8 Chloride 112 H Carbon Dioxide 22.0 Anion Gap 7 BUN 12 Creatinine 1.07 H Estim Creat Clear Calc 68.70 Est GFR (MDRD) Af Amer 75 Est GFR (MDRD) Non-Af 62 BUN/Creatinine Ratio 11.2 Glucose 101 Calcium 9.0 Troponin I High Sens 4 POC Glucose 03/19/21 06:45 WBC RBC Hgb Hct MCV MCH MCHC RDW Std Deviation RDW Coeff of Rashaun Plt Count MPV Immature Gran % (Auto) Neut % (Auto) Lymph % (Auto) [place] % (Auto) Eos % (Auto) Baso % (Auto) Absolute Neuts (auto) Absolute Lymphs (auto) Nucleated RBC % PT INR APTT Sodium Potassium Chloride Carbon Dioxide Anion Gap BUN Creatinine Estim Creat Clear Calc Est GFR (MDRD) Af Amer Est GFR (MDRD) Non-Af BUN/Creatinine Ratio Glucose Calcium Troponin I High Sens POC Glucose 97 Radiography Diagnostic Testing: Clinical Impression(s) from Imaging Studies Brain CT 03/19/21 06:11 IMPRESSION: Normal unenhanced CT scan of the brain. Electronically Signed: Brittani Bullock MD at 6:56 EDT Tel , Service support , ADDENDUM: 03/19/21 0717 IMPRESSION: Normal unenhanced CT scan of the brain. N.B. : The above Results were Read Back by Brittani Bullock MD to Drake Tom MD, MD, and understanding confirmed on 03/19/2021 07:10:46 (ET). Electronically Signed: Brittani Bullock MD at 6:56 EDT Tel , Service support , Chest X-Ray 03/19/21 06:11 IMPRESSION: Normal x-ray examination of the chest. Electronically Signed: Brittani Bullock MD at 6:44 EDT Tel , Service support , Head/Neck CTA 03/19/21 06:12 IMPRESSION: Normal CTA Head and neck with contrast. Electronically Signed: Brittani Bullock MD at 7:00 EDT Tel , Service support , ADDENDUM: 03/19/21 0717 IMPRESSION: Normal CTA Head and neck with contrast. N.B. : The above Results were Read Back by Brittani Bullock MD to Drake Tom MD, MD, and understanding confirmed on 03/19/2021 07:10:41 (ET). Electronically Signed: Brittani Bullock MD at 7:00 EDT Tel , Service support , Single view chest x-ray reveals normal cardiac silhouette and size. Mediastinum is normal. Lung parenchyma is normal. Osseous structures are unremarkable. The x-ray was interpreted by me at 0629. EKG Initial EKG: Attestation: I personally reviewed and interpreted this EKG as follows: Interpretation: Sinus Rhythm (Ventricular rate is 82. The EKG is normal. IA interval is 134 ms. Cures duration 96 ms. QT duration 408 ms. [place] is normal.) Stroke Documentation Questions Stroke Team Activated: No Discharge Plan Triage Chief Complaint: Neuro S/Sx ED Provider: Drake Tom Dx/Rx/DC Orders Clinical Impression: Conversion reaction, Occipital pain Instructions: ED Conversion Disdr Conversion Reac Prescriptions: No Action gabapentin 300 mg capsule 600 mg BID RF: 0 drospirenone-ethinyl estradiol 3-0.03 mg tablet 1 tab DAILY RF: 0 zonisamide 50 mg Capsule 200 mg PO Q12H RF: 0 Primary Care Provider: Chary Sandoval Referrals: Chary Sandoval MD [Primary Care Provider] - 5-7 Days Disposition Disposition: Home, Self Care
[2021-03-19 06:21] LABS: Absolute Lymphocyte Count 3.56 X10^3/uL (0.83-4.51); Absolute Neutrophil Count 4.6 X10^3/uL (2.0-7.7); Basophil# 0.04 X10^3/uL; Basophil% 0.4 % (0-1); Eosinophils% 1.1 % (0-5); Hematocrit 41.7 % (37-47); Hemoglobin 13.8 g/dL (12.0-15.0); Lymphocyte # 3.56 X10^3/ul (0.83-4.51); Lymphocyte % 38.4 % (19-41); Mean Corp Hgb Conc 33.1 g/dL (32-36); Mean Corpuscular Volume 90.7 fL (81-99); Mean Platelet Vol. 9.5 fl (6.2-12.0); Monocyte# 0.96 X10^3/uL; Monocyte% 10.4 % (0-10); NRBC Flagged by Analyzer 0 % (0-5); Neutrophil # 4.57 X10^3/uL (2.7-7.7); Neutrophil % 49.3 % (47-70); Platelet Count 325 K/mm3 (150-450); RBC Distribution Width SD 43.4 fl (35.1-43.9); White Blood Count 9.3 K/mm3 (4.4-11.0)
[2021-03-19 06:28] LABS: International Normalized Ratio 0.9
[2021-03-19 06:30] LABS: Partial Thromboplast Time 27.3 Seconds (24.1-36.2)
[2021-03-19 06:37] LABS: Anion Gap 7 (5-15); BUN 12 mg/dL (7-18); BUN/Creat Ratio 11.2 RATIO (10-20); Chloride 112 mmol/L (98-107); Creatinine, Serum 1.07 mg/dL (0.55-1.02); EST Glomerular Filtration Rate 62 mL/min (>60); Est Glom Filt Rate - Afr Amer 75 mL/min (>60); Glucose 101 mg/dL (74-106); Potassium 3.8 mmol/L (3.5-5.1); Sodium Level 141 mmol/L (136-145); Troponin-I HS 4 pg/mL (3.0-54.0)
[2021-03-19 06:41] VITALS: BP 101/71; PULSE 80; RESP 17; O2SAT 99
--- NOTE | 2021-03-19 06:49 | ED.RN ---
PATIENT REPORTS SEES DR Kurtis GONZALEZ AT [facility]
[2021-03-19 06:50] LABS: Bedside Glucose 97 mg/dL (70-110)
[2021-03-19] MEDS: Metoclopramide 10 MG/2 ML Vial IV (07:10)
[2021-03-19] MEDS: Ketorolac 15 MG/ML Vial IV (07:10)
[2021-03-19] MEDS: DiphenhydrAMINE 50 MG/ML Syringe 25 MG IV (07:11)
[2021-03-19 07:28] VITALS: BP 115/81; PULSE 75; RESP 16; O2SAT 97
== END 2021-03-19 07:29 | disposition home or self-care (01) ==
PROVIDERS: Emergency Provider Emergency Medicine; PCP Internal Medicine
DX: F44.9 Dissociative and conversion disorder, unspecified (principal); R51.9 Headache, unspecified; Z79.899 Other long term (current) drug therapy
CPT/HCPCS: 70450; 70496; 70498; 71045; 80048; 82962; 84484; 85025; 85610; 85730; 93005; 96374; 96375; 99284; Q9967; A4216

== ENCOUNTER 2021-08-13 08:09 | Emergency (ER) | payer BC, SELFPAY ==
[2021-08-13 08:10] VITALS: BP 103/87; PULSE 106; RESP 17; TEMP 35.6; O2SAT 97; BMI 29.6
--- NOTE | 2021-08-13 08:35 | CT_ITS ---
STUDY: CT ABDOMEN AND PELVIS WITH CONTRAST REASON FOR EXAM: Female, 35 years old. Left-sided abdominal pain. RADIATION DOSAGE (If Supplied By Facility): CTDIvol = ( 11.28 ) mGy, DLP = ( 830.05 ) mGycm TECHNIQUE: Transaxial images were obtained from the dome of the diaphragm to the symphysis pubis without oral contrast. IV 100mL Isovue-300 was administered. Sagittal and coronal images were reconstructed. Individualized dose optimization techniques were used for this CT. COMPARISON: None. FINDINGS: The visualized lung bases are unremarkable. The visualized portions of the heart are within normal limits. Normal liver. Normal gallbladder and extrahepatic biliary system. Normal spleen. Normal pancreas. Normal bilateral adrenal glands. Normal right kidney. Normal left kidney. There is diffuse thickening of the gastric wall involving the body and antral portions of the stomach. Normal small intestine. Normal colon. The appendix is visualized and appears normal. Normal abdominal aorta. Normal inferior vena cava. Normal retroperitoneum. Normal urinary bladder. Normal abdominal wall. Normal osseous structures. CT/Abdomen/Pelvis W IV Cont ONLY IMPRESSION: Diffuse thickening of the gastric wall involving the body and antral portions of the stomach. Electronically Signed: Marvin Richey MD at 9:51 EDT ,
--- NOTE | 2021-08-13 08:36 | EDS_ITS ---
HPI HPI - GI History of Present Illness Chief Complaint: Abd Pain Informant: patient Abdominal Pain/Flank Pain Onset: Days Context: Gradual Onset Timing: Continuous Quality: Aching and Cramping Location: Diffuse Current Severity: Mild Maximum Severity: Mild Worsened by: Car ride Relieved by: Nothing Nausea/Vomiting/Emesis GI Symptom: Negative for Nausea and Vomiting Diarrhea/Melena/Hematochezia GI Symptom: Negative for Diarrhea, Melena and Hematochezia Associated Symptoms Associated Symptoms: Negative for Dysuria, Frequency, Hematuria and Urgency Narrative Narrative: 35-year-old female history of migraine headaches. No prior history of any type of abdominal surgery. No recent abdominal trauma. She is G1, P1 Ab0. Last menstrual period is about 2 weeks ago. States that she developed gradual onset of abdominal pain Wednesday afternoon or evening. Started suprapubically in the left lower quadrant now is diffuse. She denies any nausea, vomiting or diarrhea. No constipation. Last bowel movement yesterday. Denies any dysuria or frequency. No hematuria. No vaginal bleeding or discharge. States her appetite has been okay. She has never had pain like this before. Prior similar symptoms: No Recent Illness/Hospitalization: No PFSH PFSH Medical History Migraine, unspecified, intractable, without status migrainosus Migraines Seasonal allergies Seizure disorder Tension headache Home Medications drospirenone-ethinyl estradiol 1 tab PO DAILY 03/19/21 [History Last Taken Unknown] gabapentin 1,200 mg PO TID 08/13/21 [History Last Taken Unknown] pantoprazole [Protonix] 40 mg PO DAILY 30 Days #30 tab 08/13/21 [Rx Last Taken Unknown] Allergy/AdvReac Type Severity Reaction Status Date / Time Latex, Natural Rubber Allergy Mild Rash Verified 08/13/21 08:10 duloxetine [From Cymbalta] Allergy tremors, Verified 08/13/21 08:10 rash Family History Grandfather Anxiety CVA (cerebral vascular accident) Mother Thyroid disorder Surgical History History of adenoidectomy History of tonsillectomy Social History household members: significant other and children Smoking Status: Never smoker Electronic Cigarette Use: not used second hand exposure: No alcohol intake: never substance use type: does not use what type of physical activity do you participate in: none ROS ROS ED ROS Narrative Abdominal pain. Review of Systems ROS Unobtainable: Denies due to encephalopathy Constitutional Constitutional ED: Denies fever(s) ENT ENT ED: Denies ear pain Cardiovascular Cardiovascular: Denies chest pain Respiratory/Chest Respiratory/Chest: Denies dyspnea Gastrointestinal Gastrointestinal: Reports abdominal pain; Denies constipation, diarrhea, melena, nausea or vomiting Genitourinary Genitourinary ED: Denies dysuria or urinary frequency Musculoskeletal Musculoskeletal: Denies myalgias Integumentary Denies rash Neurologic Neurologic: Denies headache(s) Psychiatric Psychiatric: Denies depression Endocrine Endocrinology: Denies polyuria Hematologic/Lymphatic Hematologic/Lymphatic: Denies easy bruising Allergic/Immunologic Allergic/Immunologic ED: Denies urticaria EXAM Physical Exam Narrative Exam Narrative: 35-year-old female no acute distress. Vital signs stable afebrile. H EENT exam unremarkable. Moist membranes. Lungs clear to auscultation. Heart regular rhythm no murmur. Abdomen soft nondistended normal bowel sounds no peritoneal signs. Diffusely tender in all 4 quadrants. No significant localizing tenderness to one area. Normal bowel sounds. No hernia or mass. No signs of obstruction. Moving all 4 extremities. No edema. Back nontender. Neurologically she is awake and alert. No focal motor deficits. Const Vital Signs: 08/13/21 08:10 Temperature 96.0 F L Temperature Source Temporal Pulse Rate 106 H Respiratory Rate 17 Blood Pressure 103/87 H Blood Pressure Mean 92 Pulse Ox 97 Oxygen Delivery Method Room Air Positive well nourished and well developed; Negative for cachectic, contractures or unkempt General Appearance ED: well developed and NAD; Negative for unkempt, cachectic, contractures or pallor Nutritional Appearance: Negative for cachectic HEENT Reports moist mucous membranes normocephalic and atraumatic; Negative for trauma or tenderness Eyes PERRL and EOMs intact bilaterally Neck no lymphadenopathy, supple and no JVD General: Negative for tenderness Resp normal respiratory effort and clear to auscultation bilaterally Auscultation: Negative for rales, rhonchi, wheezes or diminished lung sounds Cardio regular rate, regular rhythm, S1 normal heart sound, S2 normal heart sound and no murmurs GI non-distended and no masses; Negative for non-tender Inspection: Negative for abdominal distention Auscultation: normoactive bowel sounds; Negative for hyperactive bowel sounds or hypoactive bowel sounds Palpation: soft and tender; Negative for guarding, rigid, hepatomegaly, splenomegaly, hernia, mass, pulsatile mass or rebound tenderness present Back/Spine no CVA tenderness General Back: Negative for CVA tenderness Extremity full ROM General Extremety ED: Negative for edema or tenderness General Extremity: Negative for edema Neuro moves all extremities Sensorium / Orientation: alert, oriented to person, oriented to place and oriented to time; Negative for orientation impaired, confused, lethargic or stuporous Motor Exam: strength 5/5 throughout Psych mental status grossly normal and thought process normal Appearance: Negative for unkempt Skin no wounds General Skin Exam: Negative for jaundice or pallor Lesions: no lesions Rashes: no rashes MDM MDM MDM Narrative Medical decision making narrative: 35-year-old female with several day history of increasing abdominal pain is now diffuse. Differential diagnosis would include UTI, diverticulitis, atypical appendicitis or gallbladder disease versus colitis versus other etiologies. CAT scan labs pending. She will be treated with morphine for pain and also IV fluids and Zofran. Repeat exam patient is doing well at 10:10 AM. We discussed her test results. She will be treated as a possible gastritis. Started on Protonix given a dose here. And outpatient follow-up with her primary care physician next week. Urine culture be sent but she is having no urinary symptoms at this time she will not be placed on any antibiotics. Lab Data Attestation: I reviewed the patient's lab results. Lab results narrative: CBC shows elevated white count 13.1. H&H 13 and 39. Platelets unremarkable. Electrolytes show a gap of 7 normal BUN and creatinine. Normal liver enzymes. Normal lipase of 123. Glucose was 91. Serum test negative. Urine shows nitrates and 3+ bacteria but no white cells. No red cells. She is having no urinary symptoms. Her culture will be sent. CAT scan is consistent with possible gastritis. Labs: Laboratory Results - last 24 hr 08/13/21 08/13/21 08/13/21 08:25 08:25 08:25 WBC 13.1 H RBC 4.38 Hgb 13.6 Hct 39.2 MCV 89.5 MCH 31.1 MCHC 34.7 RDW Std Deviation 44.4 H RDW Coeff of Rashaun 13.4 Plt Count 301 MPV 10.1 Immature Gran % (Auto) 0.500 Neut % (Auto) 72.8 H Lymph % (Auto) 17.4 L [place] % (Auto) 8.3 Eos % (Auto) 0.7 Baso % (Auto) 0.3 Absolute Neuts (auto) 9.5 H Absolute Lymphs (auto) 2.27 Nucleated RBC % 0 Sodium 140 Potassium 3.9 Chloride 110 H Carbon Dioxide 23.0 Anion Gap 7 BUN 11 Creatinine 0.90 Estim Creat Clear Calc 81.67 Est GFR (MDRD) Af Amer 92 Est GFR (MDRD) Non-Af 76 BUN/Creatinine Ratio 12.3 Glucose 91 Calcium 8.7 Total Bilirubin 0.40 AST 13 L ALT 15 Alkaline Phosphatase 66 Total Protein 7.0 Albumin 3.2 Globulin 3.8 Albumin/Globulin Ratio 0.8 L Lipase 123 Serum , Qual NEGATIVE Urine Color Urine Clarity Urine pH Ur Specific [place] Urine Protein Urine Glucose (UA) Urine Ketones Urine Occult Blood Urine Nitrite Urine Bilirubin Urine Urobilinogen Ur Leukocyte Esterase Urine RBC Urine WBC Ur Squamous Epith Cells Urine Bacteria Urine Mucus 08/13/21 09:24 WBC RBC Hgb Hct MCV MCH MCHC RDW Std Deviation RDW Coeff of Rashaun Plt Count MPV Immature Gran % (Auto) Neut % (Auto) Lymph % (Auto) [place] % (Auto) Eos % (Auto) Baso % (Auto) Absolute Neuts (auto) Absolute Lymphs (auto) Nucleated RBC % Sodium Potassium Chloride Carbon Dioxide Anion Gap BUN Creatinine Estim Creat Clear Calc Est GFR (MDRD) Af Amer Est GFR (MDRD) Non-Af BUN/Creatinine Ratio Glucose Calcium Total Bilirubin AST ALT Alkaline Phosphatase Total Protein Albumin Globulin Albumin/Globulin Ratio Lipase Serum , Qual Urine Color Yellow Urine Clarity Sl. Cloudy Urine pH 6.0 Ur Specific [place] 1.020 Urine Protein 15 H Urine Glucose (UA) Normal Urine Ketones Negative Urine Occult Blood 25 H Urine Nitrite Positive H Urine Bilirubin Negative Urine Urobilinogen Normal Ur Leukocyte Esterase Negative Urine RBC 0 SEEN Urine WBC 0-5 SEEN Ur Squamous Epith Cells 0-5 SEEN Urine Bacteria 3+ Urine Mucus 1+ Radiography Diagnostic Testing: Clinical Impression(s) from Imaging Studies Abdomen/Pelvis CT 08/13/21 08:35 IMPRESSION: Diffuse thickening of the gastric wall involving the body and antral portions of the stomach. Electronically Signed: Marvin Richey MD at 9:51 EDT , Discharge Plan Triage Chief Complaint: Abd Pain ED Provider: Jroden Lord Dx/Rx/DC Orders Clinical Impression: Abdominal pain, Gastritis Instructions: ED Gastritis (Adult) Prescriptions: New pantoprazole [Protonix] 40 mg tablet,delayed release (DR/EC) 40 mg PO DAILY 30 Days Qty: 30 RF: 0 No Action drospirenone-ethinyl estradiol 3-0.03 mg tablet 1 tab PO DAILY RF: 0 gabapentin 600 mg tablet 1,200 mg PO TID RF: 0 Primary Care Provider: Chary Sandoval Referrals: Chary Sandoval MD [Primary Care Provider] - 3-5 Days if not improving Activity Restrictions/Additional Instructions: You have inflammation of your stomach most likely secondary to condition called gastritis. You will be started on medication called Protonix you will take it daily. Follow-up with your doctor to ensure you are improving. Return if feeling worse. Disposition Disposition: Home, Self Care
[2021-08-13 09:07] LABS: Absolute Lymphocyte Count 2.27 X10^3/uL (0.83-4.51); Absolute Neutrophil Count 9.5 X10^3/uL (2.0-7.7); Basophil# 0.04 X10^3/uL; Basophil% 0.3 % (0-1); Eosinophil# 0.09 X10^3/uL; Eosinophils% 0.7 % (0-5); Hematocrit 39.2 % (37-47); Hemoglobin 13.6 g/dL (12.0-15.0); Lymphocyte # 2.27 X10^3/ul (0.83-4.51); Lymphocyte % 17.4 % (19-41); Mean Corp Hgb Conc 34.7 g/dL (32-36); Mean Corpuscular Hgb 31.1 pg (27.0-32.0); Mean Corpuscular Volume 89.5 fL (81-99); Mean Platelet Vol. 10.1 fl (6.2-12.0); Monocyte# 1.08 X10^3/uL; Monocyte% 8.3 % (0-10); NRBC Flagged by Analyzer 0 % (0-5); Neutrophil # 9.52 X10^3/uL (2.7-7.7); Neutrophil % 72.8 % (47-70); Platelet Count 301 K/mm3 (150-450); RBC Distribution Width CV 13.4 % (11.6-14.6); RBC Distribution Width SD 44.4 fl (35.1-43.9); Red Blood Count 4.38 M/mm3 (4.2-5.4); White Blood Count 13.1 K/mm3 (4.4-11.0)
[2021-08-13 09:15] LABS: Internal QC Validated? YES +Cl - CLEAR BKGD; Pregnancy, Serum, hCG Quali. NEGATIVE Negative
[2021-08-13] MEDS: Ondansetron 4 MG/2 ML Vial IV (09:21)
[2021-08-13] MEDS: Morphine 4 MG/ML Syringe 6 MG IV (09:22)
[2021-08-13] MEDS: 0.9% Normal Saline 1,000 ML 1000 ML IV (09:23)
[2021-08-13 09:24] LABS: ALB/GLOB Ratio 0.8 RATIO (0.9-2.4); AST(SGOT) 13 U/L (15-37); Alanine Aminotransfer ALT/SGPT 15 U/L (13-56); Albumin, Serum 3.2 g/dL (3.2-5.0); Alkaline Phosphatase 66 U/L (45-117); Anion Gap 7 (5-15); BUN 11 mg/dL (7-18); BUN/Creat Ratio 12.3 RATIO (10-20); Calcium,Total 8.7 mg/dL (8.5-10.1); Chloride 110 mmol/L (98-107); EST Glomerular Filtration Rate 76 mL/min (>60); Est Glom Filt Rate - Afr Amer 92 mL/min (>60); Estimated Creatinine Clearance 81.67 ml/min; Globulin 3.8 g/dL (2.2-4.2); Glucose 91 mg/dL (74-106); Lipase 123 U/L (73-393); Potassium 3.9 mmol/L (3.5-5.1); Sodium Level 140 mmol/L (136-145)
[2021-08-13 09:30] LABS: Red Blood Cells-Urine 0 SEEN /hpf (0-5)
[2021-08-13 09:39] LABS: Color, Urine Yellow (Yellow); Glucose, Dipstick Normal (Normal); Ketone-Dipstick Negative (Negative); Leukocyte Esterase-Dipstick Negative /ul (Negative); Nitrite-Dipstick Positive (Negative); Occult Blood-Urine 25 /ul (Negative); Protein-Dipstick 15 mg/dl (Negative); Urine Bilirubin Dipstick Negative (Negative); Urine Clarity Sl. Cloudy (Clear); Urine Urobilinogen Normal (Normal)
[2021-08-13 09:45] LABS: Bacteria 3+ /hpf (None Seen); Mucous, Urine 1+ /hpf (<or=2+); Squamous Epithelial Cells - UA 0-5 SEEN /hpf (5-10); White Blood Cells 0-5 SEEN /hpf (0-5)
[2021-08-13 10:18] VITALS: BP 124/66; PULSE 72; RESP 16; O2SAT 98
[2021-08-13] MEDS: Pantoprazole Sodium 40 MG Tablet PO (10:33)
[2021-08-13 10:37] VITALS: BP 108/62; PULSE 77; RESP 15; O2SAT 100
== END 2021-08-13 10:38 | disposition home or self-care (01) ==
PROVIDERS: Emergency Provider Emergency Medicine; PCP Internal Medicine; Visit Provider Emergency Medicine
DX: K29.70 Gastritis, unspecified, without bleeding (principal); R10.9 Unspecified abdominal pain; F17.200 Nicotine dependence, unspecified, uncomplicated; Z79.899 Other long term (current) drug therapy
CPT/HCPCS: 74177; 80053; 81001; 83690; 84703; 85025; 87086; 87088; 87186; 96361; 96374; 96375; 99284; Q9967; A4216; J2405

== ENCOUNTER 2021-09-03 09:24 | Outpatient (CLI) | payer BC, SELFPAY ==
[2021-09-03 12:27] LABS: Rheumatoid Factor < 10.0 IU/mL (<15)
[2021-09-04 15:59] LABS: ANTINUCLEAR ANTIBODIES DIRECT Negative (Negative)
[2021-09-05 08:21] LABS: CCP IgG Antibodies 6 units (0-19)
== END 2021-09-03 23:59 | disposition home or self-care (01) ==
LOC: BIMLAB 09:24
PROVIDERS: PCP Internal Medicine; Referring Provider Nurse Practitioner Family; Visit Provider Nurse Practitioner Family
DX: R76.8 Other specified abnormal immunological findings in serum (principal); M25.50 Pain in unspecified joint
CPT/HCPCS: 36415; 86038; 86200; 86225; 86235; 86431

== ENCOUNTER → 2021-09-30 | Outpatient (CLI) | payer BC, SELFPAY ==
--- NOTE | 2021-09-30 12:00 | RAD_ITS ---
EXAM: XR LUMBOSACRAL SPINE, 4 OR 5 VIEWS CLINICAL INDICATION: Left Scaroilitis TECHNIQUE: Frontal, lateral and bilateral oblique views of the lumbar spine. This report was created using [employer] report generation technology. COMPARISON: None. FINDINGS: VERTEBRAE: Unremarkable. Preserved vertebral body height. No fracture. No spondylolisthesis. Preservation of the normal lumbar lordosis. No significant facet arthropathy. DISC SPACES: No acute findings. Disc spaces are maintained. GASTROINTESTINAL TRACT: Unremarkable as visualized. Included bowel gas pattern is non-obstructive. RAD/L/S Spine Min 4 Views IMPRESSION: No evidence of lumbar spinal fracture or spondylolisthesis. Electronically Signed: Yobani Bates MD at 18:02 EDT ,
[2021-09-30 12:42] LABS: T4 Free Direct 1.05 ng/dL (0.76-1.46)
== END | disposition home or self-care (01) ==
PROVIDERS: PCP Internal Medicine; Referring Provider Internal Medicine; Visit Provider Internal Medicine
DX: Z13.29 Encounter for screening for other suspected endocrine disorder (principal); M46.1 Sacroiliitis, not elsewhere classified
CPT/HCPCS: 36415; 72110; 84439; 84443

== ENCOUNTER → 2021-10-22 | Outpatient (CLI) | payer BC, SELFPAY ==
--- NOTE | 2021-10-22 16:38 | MRI_ITS ---
EXAM: MR HEAD WITHOUT AND WITH INTRAVENOUS CONTRAST CLINICAL INDICATION: THIRD NERVE PALSY W/ PUPIL INVOLVEMENT -- HOMONYMOUS LT FIELD HEMIANOPSIA Technologist Notes left eye is spazing,double vision,blurred vision TECHNIQUE: Multiplanar and multisequence MR images of the brain were obtained without and with intravenous contrast. This report was created using Quantum[employer] report generation technology. CONTRAST: IV 17ml Clariscan COMPARISON: Jul 16 2020 2:33pm FINDINGS: BRAIN AND EXTRA-AXIAL SPACES: Unremarkable. No intra- or extra-axial hemorrhage. No evidence of acute infarct. No intracranial mass or mass effect. There is preservation of the dumont/white matter interface. Posterior fossa structures are unremarkable. Ventricles are appropriate for age. No hydrocephalus. Basal cisterns are patent. SELLA: Unremarkable. Normal sella turcica, pituitary gland, infundibular stalk, optic chiasm and hypothalamus. AUDITORY SYSTEM: Unremarkable. The internal auditory canals are patent. BONES/JOINTS: Unremarkable. No discrete lytic or blastic abnormalities. SINUSES: Unremarkable as visualized. Clear. MASTOID AIR CELLS: Unremarkable as visualized. Clear. ORBITS: Unremarkable as visualized. Both globes, extraocular muscles, optic nerves and retrobulbar fat appear unremarkable. VASCULATURE: Unremarkable as visualized. Normal flow voids in the major intracranial circulation. MRI/Brain W/WO Contrast IMPRESSION: Negative MRI brain without and with intravenous contrast. Electronically Signed: Nba Chau MD at 18:19 EDT Reading Location ID and State: [facility] / [place] , Service support ,
== END | disposition home or self-care (01) ==
PROVIDERS: PCP Internal Medicine
DX: H49.02 Third [oculomotor] nerve palsy, left eye (principal); H53.461 Homonymous bilateral field defects, right side
CPT/HCPCS: 70553; A9575

== ENCOUNTER 2021-11-05 08:35 | Outpatient (RCR) | payer BC, SELFPAY | END 2021-11-13 23:59 | LOC: NS 08:35 | PROVIDERS: PCP Internal Medicine; Visit Provider Internal Medicine | DX: Z71.3 Dietary counseling and surveillance (principal); E66.9 Obesity, unspecified; Z68.31 Body mass index [BMI] 31.0-31.9, adult | CPT/HCPCS: 97802 ==

== ENCOUNTER → 2022-06-12 | Outpatient (CLI) | payer MEDICAID, SELFPAY ==
--- NOTE | 2022-06-12 09:41 | RAD_ITS ---
STUDY: X-RAY - LUMBAR SPINE REASON FOR EXAM: Female, 36 years old. Right hip and low back pain. TECHNIQUE: 2 view(s) of the lumbar spine were obtained. COMPARISON: September 30, 2021. FINDINGS: Normal lumbar lordosis. There is no substantial scoliosis. There is a normal alignment of the vertebrae. Normal vertebral bodies and endplates. Normal disc space heights. The soft tissue structures are unremarkable. RAD/Lumbar Spine 2 or 3 Views IMPRESSION: No interval change. No abnormality identified. Electronically Signed: Sloan Cruz, at 11:24 EST ,
--- NOTE | 2022-06-12 09:41 | RAD_ITS ---
STUDY: X-RAY - PELVIS AND RIGHT HIP REASON FOR EXAM: Female, 36 years old. Right hip pain for several months. TECHNIQUE: 3 views of the pelvis and hip. COMPARISON: None. FINDINGS: There is a non-specific bowel gas pattern. Normal visualized soft tissue structures. Normal bilateral iliac wings, sacroiliac joints and visualized sacrum. Normal bilateral superior and inferior pubic rami. Normal pubic symphysis. Normal bilateral ischial tuberosities. Normal visualized femoral head. Normal acetabulum. Normal hip joint. RAD/HIP, UNI W/ Pelvis 2-3 Views IMPRESSION: Normal x-ray examination of the pelvis and hip. Electronically Signed: Sloan Cruz, at 11:25 EST ,
== END | disposition home or self-care (01) ==
LOC: MTRAD 09:41
PROVIDERS: PCP Internal Medicine; Referring Provider Nurse Practitioner Family; Visit Provider Nurse Practitioner Family
DX: M54.41 Lumbago with sciatica, right side (principal); M25.551 Pain in right hip
CPT/HCPCS: 73503; 72100; 73502

== ENCOUNTER 2022-06-27 16:53 | Emergency (ER) | payer MEDICAID, SELFPAY ==
[2022-06-27 16:54] VITALS: BP 179/110; PULSE 129; RESP 18; TEMP 35.9; O2SAT 98; BMI 31.4
--- NOTE | 2022-06-27 17:12 | EDS_ITS ---
HPI HPI - URI History of Present Illness Chief Complaint: GI Bleed Detail of Chief Complaint: URI symptoms. Informant: patient Onset/Context/Timing Onset: Days Context: Gradual Onset Timing: Intermittent Current Severity: Mild Maximum Severity: Mild Associated Symptoms Associated Symptoms: Positive for Nasal Congestion and Nonproductive cough Narrative Narrative: 36-year-old female history of chronic headaches. States since Wednesday she has had URI symptoms. Was seen in urgent care had a negative rapid strep negative COVID test and negative influenza. Since then has developed sore throat and earaches. Denies any fever. No vomiting or diarrhea. No dysuria. Today after coughing episode she had a bowel movement had blood. Denies clots. Denies any history of GI bleeds or hemorrhoids. No hematemesis. On no blood thinners. Prior similar symptoms: Yes Recent Illness/Hospitalization: No ROS ROS ED ROS Narrative URI symptoms. Cough, sore throat, earaches. Blood in stool today. Review of Systems ROS Unobtainable: Denies due to encephalopathy Constitutional Constitutional ED: Denies chills or fever(s) Eyes Eyes: Denies blurry vision ENT ENT ED: Reports ear pain, rhinorrhea and sore throat Cardiovascular Cardiovascular: Denies chest pain, palpitations or racing heartbeat Respiratory/Chest Respiratory/Chest: Reports cough; Denies dyspnea Gastrointestinal Gastrointestinal: Denies abdominal pain Genitourinary Genitourinary ED: Denies dysuria or hematuria Musculoskeletal Musculoskeletal: Denies arthralgias Integumentary Denies abscess Neurologic Neurologic: Reports headache(s) Psychiatric Psychiatric: Denies anxiety Endocrine Endocrinology: Denies cold intolerance Hematologic/Lymphatic Hematologic/Lymphatic: Denies easy bleeding Allergic/Immunologic Allergic/Immunologic ED: Denies mouth swelling or tongue swelling [facility] Medical History Abdominal pain Acute right hip pain B12 deficiency B12 deficiency Gastritis Left hip pain Migraine, unspecified, intractable, without status migrainosus Migraines Obesity (BMI 30-39.9) Pain, joint, multiple sites Positive BRIONNA (antinuclear antibody) Sacroiliitis Screening for thyroid disorder Seasonal allergies Seizure disorder Tension headache Home Medications cyclobenzaprine 10 mg tablet 5 - 10 mg PO TID PRN muscle spasm #30 tabs 05/21/22 [Rx Last Taken Unknown] meloxicam 15 mg tablet 15 mg PO DAILY #30 tabs 06/12/22 [Rx Last Taken Unknown] tramadol 50 mg tablet 50 mg PO Q12H PRN pain #14 tabs 06/12/22 [Rx Last Taken Unknown] Allergy/AdvReac Type Severity Reaction Status Date / Time Latex, Natural Rubber Allergy Mild Rash Verified 06/27/22 16:54 duloxetine [From Cymbalta] Allergy tremors, Verified 06/27/22 16:54 rash Family History Grandfather Anxiety CVA (cerebral vascular accident) Mother Thyroid disorder Surgical History History of adenoidectomy History of tonsillectomy Social History household members: significant other and children Smoking Status: Never smoker Electronic Cigarette Use: not used second hand exposure: No alcohol intake: never substance use type: does not use what type of physical activity do you participate in: none EXAM Physical Exam Narrative Exam Narrative: H EENT exam fluid Niamid eardrums. No otitis. Posterior pharynx minimal erythema no exudate. No peritonsillar abscess. Able to swallow. No stridor. No drooling. Moist Rizmoic. Neck nontender. No meningismus. No lymphadenopathy. Lungs clear to auscultation bilaterally. Heart tachycardic rate about 120 no murmur. Abdomen soft nontender. Moving all 4 extremities. Calves are nontender without edema or cords. Neurologically awake alert no focal motor deficits. Const Vital Signs: 06/27/22 16:54 Temperature 96.7 F L Temperature Source Temporal Pulse Rate 129 H Respiratory Rate 18 Blood Pressure 179/110 H Blood Pressure Mean 133 Pulse Ox 98 Oxygen Delivery Method Room Air Positive well nourished, well developed and obese; Negative for cachectic or contractures General Appearance ED: well developed; Negative for cachectic, contractures, cyanotic, diaphoretic, NAD or pallor Nutritional Appearance: obese; Negative for cachectic HEENT Reports moist mucous membranes; Denies dry mucous membranes normocephalic and atraumatic; Negative for scalp tenderness Face and Sinus: Negative for sinus tenderness or maxillary instability Mouth ED: No dry mucous membranes Mouth: No dry mucous membranes Teeth and Gingiva: Negative for caries Throat: posterior oropharynx abnormal Positive for erythema; Negative for exudates; Negative for posterior oropharynx normal Eyes PERRL and EOMs intact bilaterally General Eye ED: Negative for pale conjunctiva or scleral icterus Neck no lymphadenopathy, supple, no meningeal signs and no JVD General: Negative for anterior neck swelling or lymphadenopathy Resp normal respiratory effort and clear to auscultation bilaterally Effort and Inspection: Negative for retractions or pain with movement Auscultation: Negative for rales, rhonchi or wheezes Cardio S1 normal heart sound, S2 normal heart sound and no murmurs Rate: tachycardic Rhythm: regular rhythm GI non-tender, non-distended and no masses Inspection: Negative for abdominal distention Auscultation: normoactive bowel sounds Palpation: soft; Negative for tender, guarding, hepatomegaly or splenomegaly Back/Spine no CVA tenderness General Back: Negative for CVA tenderness Cervical Spine: Negative for cervical spine tenderness Thoracic Spine / Upper Back: Negative for thoracic spinal tenderness Lumbar Spine / Lower Back: Negative for lumbar spinal tenderness Sacrum: Negative for tenderness Extremity normal to inspection and full ROM General Extremety ED: Negative for cyanosis, tenderness or other findings General Extremity: Negative for cyanosis or other findings Neuro oriented x3 and CN's II-XII intact bilaterally Sensorium / Orientation: alert, oriented to person, oriented to place, oriented to time and orientation impaired; Negative for lethargic or stuporous Sensory Exam: No sensory level loss detected Motor Exam: strength 5/5 throughout; Negative for general weakness or strength abnormal Psych mental status grossly normal Appearance: Negative for other Attitude: No agitated Mood & Affect: Negative for depressed, anxious or tearful Skin General Skin Exam: Negative for jaundice or pallor Lesions: no lesions Rashes: no rashes Trauma: Negative for abrasion or laceration MDM MDM MDM Narrative Medical decision making narrative: 36-year-old with URI symptoms. She has had negative rapid strep, influenza and COVID. Will obtain a chest x-ray. Clinically think is a viral syndrome and I doubt she has pneumonia. Also blood count due to her reported hematochezia. Repeat exam patient is doing well at 6:53 PM. I went over her test results with her. She will be discharged home. She had no external hemorrhoids or active bleeding at this time. She will be treated as a viral syndrome. Follow-up with her primary care physician. Lab Data Attestation: I reviewed the patient's lab results. Lab results narrative: CBC shows a white count 9.8 H&H 12.6 and 30.7 which are normal. Platelets 441. Chest x-ray is negative. Labs: Laboratory Results - last 24 hr 06/27/22 17:42 WBC 11.8 H RBC 4.37 Hgb 12.6 Hct 38.7 MCV 88.6 MCH 28.8 MCHC 32.6 RDW Std Deviation 44.4 H RDW Coeff of Rashaun 13.6 Plt Count 441 MPV 9.0 Immature Gran % (Auto) 2.000 H Neut % (Auto) 61.6 Lymph % (Auto) 22.0 [place] % (Auto) 12.5 H Eos % (Auto) 1.4 Baso % (Auto) 0.5 Absolute Neuts (auto) 7.2 Absolute Lymphs (auto) 2.59 Nucleated RBC % 0 Differential Comment SCANNED Atypical Lymphocytes RARE Radiography Diagnostic Testing: Clinical Impression(s) from Imaging Studies Chest X-Ray 06/27/22 17:30 IMPRESSION: No radiographic evidence of acute cardiopulmonary disease. Electronically Signed: William Goodwin MD at 17:45 EST Reading Location ID and State: [facility] / [place] Tel , Service support , Chest x-ray, AP and lateral, 2 views, interpreted myself and radiology shows no acute abnormality. Normal cardiac silhouette. Normal mediastinum. Normal lung owens. Discharge Plan Triage Chief Complaint: GI Bleed Other Complaint: Cold Sx ED Provider: Jorden Lord Dx/Rx/DC Orders Clinical Impression: Viral URI, Rectal bleeding Instructions: ED Lower GI Bleeding (Stable), ED URI, Viral, No Abx (Adult) Prescriptions: No Action cyclobenzaprine 10 mg tablet 5 - 10 mg PO TID PRN (Reason: muscle spasm) Qty: 30 0RF meloxicam 15 mg tablet 15 mg PO DAILY Qty: 30 0RF tramadol 50 mg tablet 50 mg PO Q12H PRN (Reason: pain) Qty: 14 0RF Primary Care Provider: Chary Sandoval Referrals: Chary Sandoval MD [Primary Care Provider] - 1 Week Activity Restrictions/Additional Instructions: Plenty of fluids and rest. Your symptoms seem to be from a viral upper respir atory infection. This should progressively improve. No signs of pneumonia. Motrin and Tylenol. Follow-up with your doctor if not improving and for further evaluation of the rectal bleeding. At this time your blood counts are normal. Disposition Disposition: Home, Self Care
--- NOTE | 2022-06-27 17:30 | RAD_ITS ---
INDICATION: Cough EXAMINATION/TECHNIQUE: X-RAY - XR Chest 2 Views COMPARISON: 03/19/2021 FINDINGS: LINES/DEVICES: None. LUNGS: No consolidation, edema or effusion. No pneumothorax. MEDIASTINUM AND CARDIOVASCULAR STRUCTURES: Cardiac silhouette not enlarged. Central airways and mediastinal contour are unremarkable. RAD/Chest PA and Lateral IMPRESSION: No radiographic evidence of acute cardiopulmonary disease. Electronically Signed: William Goodwin MD at 17:45 EST ,
[2022-06-27 17:47] LABS: Absolute Lymphocyte Count 2.59 X10^3/uL (0.83-4.51); Absolute Neutrophil Count 7.2 X10^3/uL (2.0-7.7); Basophil# 0.06 X10^3/uL; Basophil% 0.5 % (0-1); Eosinophil# 0.17 X10^3/uL; Eosinophils% 1.4 % (0-5); Hematocrit 38.7 % (37-47); Hemoglobin 12.6 g/dL (12.0-15.0); Lymphocyte # 2.59 X10^3/ul (0.83-4.51); Mean Corp Hgb Conc 32.6 g/dL (32-36); Mean Corpuscular Hgb 28.8 pg (27.0-32.0); Mean Corpuscular Volume 88.6 fL (81-99); Monocyte# 1.47 X10^3/uL; Monocyte% 12.5 % (0-10); NRBC Flagged by Analyzer 0 % (0-5); Neutrophil # 7.23 X10^3/uL (2.7-7.7); Neutrophil % 61.6 % (47-70); POSITIVE MORPHOLOGY YES; Platelet Count 441 K/mm3 (150-450); RBC Distribution Width CV 13.6 % (11.6-14.6); RBC Distribution Width SD 44.4 fl (35.1-43.9); Red Blood Count 4.37 M/mm3 (4.2-5.4); White Blood Count 11.8 K/mm3 (4.4-11.0)
[2022-06-27 17:55] LABS: Differential Indicated SCAN CRITERIA MET
[2022-06-27 18:44] LABS: Atypical Lymphocyte RARE %; Differential Comment SCANNED
== END 2022-06-27 19:21 | disposition home or self-care (01) ==
PROVIDERS: Emergency Provider Emergency Medicine; PCP Internal Medicine; Visit Provider Emergency Medicine
DX: J06.9 Acute upper respiratory infection, unspecified (principal); K62.5 Hemorrhage of anus and rectum
CPT/HCPCS: 71046; 85025; 99282

== ENCOUNTER → 2022-12-25 | Outpatient (CLI) | payer MEDICAID, SELFPAY ==
[2022-12-25 12:09] LABS: Absolute Lymphocyte Count 2.04 X10^3/uL (0.83-4.51); Absolute Neutrophil Count 6.2 X10^3/uL (2.0-7.7); Basophil# 0.02 X10^3/uL; Basophil% 0.2 % (0-1); Eosinophil# 0.06 X10^3/uL; Eosinophils% 0.6 % (0-5); Hematocrit 39.9 % (37-47); Hemoglobin 13.5 g/dL (12.0-15.0); Lymphocyte # 2.04 X10^3/ul (0.83-4.51); Lymphocyte % 21.8 % (19-41); Mean Corp Hgb Conc 33.8 g/dL (32-36); Mean Corpuscular Hgb 29.6 pg (27.0-32.0); Mean Corpuscular Volume 87.5 fL (81-99); Mean Platelet Vol. 9.9 fl (6.2-12.0); Monocyte% 10.7 % (0-10); NRBC Flagged by Analyzer 0 % (0-5); Neutrophil # 6.18 X10^3/uL (2.7-7.7); Neutrophil % 66.2 % (47-70); Platelet Count 335 K/mm3 (150-450); RBC Distribution Width CV 14.4 % (11.6-14.6); Red Blood Count 4.56 M/mm3 (4.2-5.4); White Blood Count 9.4 K/mm3 (4.4-11.0)
[2022-12-25 12:47] LABS: ALB/GLOB Ratio 0.7 RATIO (0.9-2.4); AST(SGOT) 13 U/L (15-37); Alanine Aminotransfer ALT/SGPT 16 U/L (13-56); Albumin, Serum 3.1 g/dL (3.2-5.0); Alkaline Phosphatase 87 U/L (45-117); Anion Gap 9 (5-15); BUN 12 mg/dL (7-18); BUN/Creat Ratio 13.5 RATIO (10-20); Chloride 110 mmol/L (98-107); Creatinine, Serum 0.89 mg/dL (0.55-1.02); EST Glomerular Filtration Rate 76 mL/min (>60); Est Glom Filt Rate - Afr Amer 92 mL/min (>60); Globulin 4.6 g/dL (2.2-4.2); Glucose 98 mg/dL (74-106); Potassium 3.5 mmol/L (3.5-5.1); Protein, Total 7.7 g/dL (6.4-8.2); Sodium Level 140 mmol/L (136-145); T4 Free Direct 1.05 ng/dL (0.76-1.46); Thyroid Stim Hormone (TSH) 1.18 uIU/mL (0.358-3.74)
== END | disposition home or self-care (01) ==
LOC: BIMLAB 11:30
PROVIDERS: PCP Internal Medicine; Referring Provider Internal Medicine; Visit Provider Internal Medicine
DX: L50.9 Urticaria, unspecified (principal); Z13.29 Encounter for screening for other suspected endocrine disorder
CPT/HCPCS: 36415; 80053; 84439; 84443; 85025

== ENCOUNTER → 2023-01-29 | Outpatient (CLI) | payer MEDICAID, SELFPAY ==
--- NOTE | 2023-01-29 06:39 | MRI_ITS ---
STUDY: MRI BRAIN WITH AND WITHOUT CONTRAST REASON FOR EXAM: Female, 37 years old. CHRONIC MIGRAINE TECHNIQUE: Standardized multiplanar fat and water weighted pulse sequences were obtained. IV 18cc clariscan was administered for the contrast portion of the examination. COMPARISON: MRI of the brain October 22, 2021 FINDINGS: Normal size of the ventricles and extra-axial spaces for the patient''s age. Normal white matter tracts of the supratentorial brain. Normal bilateral basal ganglia. Normal thalami. There is no extra-axial fluid accumulation. Normal flow voids within the major intracranial circulation suggesting patency by spin echo criteria. Normal venous enhancement. There is no enhancing intra-axial or extra-axial abnormality. Normal sella turcica, pituitary gland, infundibular stalk, optic chiasm and hypothalamus. Normal tectal plate and pineal gland. Normal midbrain, bekah and medulla. Normal cerebellum. Normal basal cisterns. Normal bilateral temporal bones. Normal bilateral internal auditory canals. No demonstrated orbital abnormality, within the constraints of a routine brain study. Normal visualized paranasal sinuses. Normal calvarium and skull base. Normal visualized soft tissue structures. Normal visualized upper cervical spine. No significant change since prior study MRI/Brain W/WO Contrast IMPRESSION: Normal unenhanced and enhanced MRI of the brain. Electronically Signed: David Gtz MD at 16:25 EDT ,
== END | disposition home or self-care (01) ==
LOC: MRI 06:30
PROVIDERS: PCP Internal Medicine; Referring Provider Physician Assistant; Visit Provider Physician Assistant
DX: G43.711 Chronic migraine without aura, intractable, with status migrainosus (principal)
CPT/HCPCS: 70553; A9575

== ENCOUNTER 2024-03-31 18:59 | Emergency (ER) | payer MEDICAID, SELFPAY ==
[2024-03-31] VITALS (9 sets, daily range): BP systolic 113–134; BP diastolic 72–86; PULSE 92–115; RESP 7–30; TEMP 36.8; O2SAT 97–100; BMI 23.3
--- NOTE | 2024-03-31 19:15 | EX.ED.DYSGE1 ---
HPI History of Present Illness Chief Complaint: Abd Pain Detail of Chief Complaint: Acute epigastric pain Informant: patient Onset/Context/Timing Onset: Today and Hours Context: Sudden Onset Timing: Continuous Quality: Severe pain Location: Epigastrium Current Severity: Severe Maximum Severity: Severe Worsened by: Movement and breathing Relieved by: Nothing Associated Symptoms Associated Symptoms: Nausea Narrative Narrative: Patient is a 38-year-old female who is sexually active. She not use any form of control. Patient presents with abrupt onset of epigastric pain as if someone sticking a knife from the inside out. She does report nausea. She had no vomiting. She had no diarrhea or constipation. She denies black or maroon-colored stool. She has no intolerance to greasy or fried foods. She ate a couple hours prior to onset of pain. There is no family history of cholelithiasis. She denies cough, shortness of breath difficulty breathing. Denies chest pain. She denies prior pain. Patient denies urologic symptoms. There is no history of trauma. Patient without noted a rash. Patient does have history of abdominal pain but has never had pain localized to the epigastric area. There is also history of migraine headaches and tension headaches. Prior similar symptoms: No Recent Illness/Hospitalization: No PFSH [facility] Medical History Physical exam, pre-employment Urticaria Acute right hip pain Obesity (BMI 30-39.9) Left hip pain Abdominal pain Screening for thyroid disorder Sacroiliitis Pain, joint, multiple sites Positive BRIONNA (antinuclear antibody) B12 deficiency Gastritis B12 deficiency Seizure disorder Migraine, unspecified, intractable, without status migrainosus Tension headache Migraines Seasonal allergies Home Medications ?Medication ?Instructions ?Recorded ?Last Taken ?Type naproxen 500 mg tablet 500 mg PO BID PRN pain #60 tabs 11/27/22 Unknown Rx omeprazole 40 mg capsule,delayed 40 mg PO DAILY #60 caps 04/14/23 Unknown Rx release atogepant 60 mg tablet (Qulipta) 60 mg PO DAILY 06/16/23 Unknown History prednisone 10 mg tablet 10 mg PO DIRECTED #36 tabs 06/16/23 Unknown Rx Allergy/AdvReac Type Severity Reaction Status Date / Time Latex, Natural Rubber Allergy Mild Rash Verified 03/31/24 19:01 duloxetine (From Cymbalta) Allergy tremors, Verified 03/31/24 19:01 rash Family History Grandfather Anxiety CVA (cerebral vascular accident) Mother Thyroid disorder Surgical History History of adenoidectomy History of tonsillectomy Social History household members: significant other and children Smoking Status: Never smoker Electronic Cigarette Use: not used second hand exposure: No alcohol intake: never substance use type: does not use what type of physical activity do you participate in: none ROS ROS ED Constitutional Constitutional ED: Denies chills, fever(s), subjective, sweats or weight loss ENT ENT ED: Denies ear pain, rhinorrhea or sore throat Cardiovascular Cardiovascular: Denies chest pain, orthopnea, palpitations or paroxysmal nocturnal dyspnea Respiratory/Chest Respiratory/Chest: Denies cough, dyspnea, dyspnea on exertion, orthopnea or paroxysmal nocturnal dyspnea Gastrointestinal Gastrointestinal: Reports abdominal pain and nausea; Denies constipation, diarrhea, melena or vomiting Genitourinary Genitourinary ED: Reports LMP (females 10-50) Details: Comment: (Approximately 2 weeks ago); Denies dysuria, hematuria or urinary frequency Musculoskeletal Musculoskeletal: Reports back pain and other Details: Pain does radiate through to her back. ; Denies arthralgias, myalgias or neck pain Integumentary Denies rash Psychiatric Psychiatric: Reports anxiety; Denies depression or suicidal ideation Hematologic/Lymphatic Hematologic/Lymphatic: Reports systems reviewed and no addt'l complaints, except as documented EXAM Physical Exam Const Vital Signs: 03/31/24 18:59 03/31/24 20:59 03/31/24 22:00 Temperature 98.2 F Temperature Source Oral Pulse Rate 115 H 92 99 Respiratory Rate 30 H 19 H 18 Blood Pressure 113/82 H 117/75 121/72 H Blood Pressure Mean 92 89 88 Pulse Ox 100 97 98 Oxygen Delivery Method Room Air Room Air Room Air Positive well nourished and well developed Constitutional Narrative: Patient is in obvious discomfort. She is panting. Patient is tachycardic, tachypneic. She is not hypoxic. She is not febrile either. General Appearance ED: well developed; Negative for cyanotic or diaphoretic HEENT Reports dry mucous membranes HEENT Narrative: Head is atraumatic no cephalic. Ears normal. Nares patent. Posterior pharynx is normal. Mouth ED: Yes dry mucous membranes Mouth: dry mucous membranes Eyes PERRL and EOMs intact bilaterally General Eye ED: Negative for pale conjunctiva or scleral icterus Neck no lymphadenopathy, supple and no JVD Neck Narrative: Trachea is midline. Chest Wall inspection of chest normal and palpation of chest normal Chest Narrative: There is no chest pain on palpation. Cardio regular rhythm, S1 normal heart sound, S2 normal heart sound and no murmurs Rate: tachycardic GI non-distended and no masses; Negative for non-tender or hepatosplenomegaly GI Narrative: Patient is mottled. Capillary refill is 5 to 6 seconds. Auscultation: hypoactive bowel sounds Palpation: tender other (Generalized tenderness with area of greatest discomfort being the epigastric area.), guarding other (Throughout) and rebound tenderness present; Negative for soft Back/Spine no CVA tenderness Extremity normal to inspection General Extremety ED: Negative for edema or tenderness General Extremity: Negative for edema Neuro oriented x3 and CN's II-XII intact bilaterally Sensorium / Orientation: alert Psych mental status grossly normal Mood & Affect: anxious Skin no rashes or lesions noted, no wounds and skin turgor normal Skin Narrative: Mottling with delayed perfusion MDM MDM MDM Narrative Medical decision making narrative: With abrupt onset of pain and peritoneal findings are generalized need to evaluate for perforated viscus i.e. perforated gastric ulcer, duodenal ulcer. This would be an atypical presentation for acute cholecystitis. Since she is not jaundiced there is no concern for ascending cholangitis. Symptoms not consistent with cardiac disease either. Because she is mottled with delayed capillary refill tachycardic 1 L of normal saline was ordered. I inadvertently ordered CT abdomen pelvis with p.o. contrast. I meant order IV only specially since there is concern for perforation. Appropriate blood work was ordered. Patient was medicated with Zofran and opiate analgesia for her pain. Lab Data Attestation: I reviewed the patient's lab results. Lab results narrative: CBC is remarkable for slight shift. Basic metabolic panel is mild hypokalemia the potassium 3.4. Liver enzymes are normal. Serum test is negative. Labs: Laboratory Results - last 24 hr 03/31/24 19:32 WBC 10.9 RBC 4.16 L Hgb 12.3 Hct 37.6 MCV 90.4 MCH 29.6 MCHC 32.7 RDW Std Deviation 46.2 H RDW Coeff of Rashaun 13.9 Plt Count 218 MPV 10.3 Immature Gran % (Auto) 0.200 Neut % (Auto) 82.6 H Lymph % (Auto) 11.5 L [place] % (Auto) 5.4 Eos % (Auto) 0.2 Baso % (Auto) 0.1 Absolute Neuts (auto) 9.0 H Absolute Lymphs (auto) 1.26 Nucleated RBC % 0 Sodium 142 Potassium 3.4 L Chloride 110 H Carbon Dioxide 27.0 Anion Gap 5 BUN 14 Creatinine 0.89 Estim Creat Clear Calc 80.23 Est GFR (MDRD) Af Amer 92 Est GFR (MDRD) Non-Af 76 BUN/Creatinine Ratio 15.8 Glucose 116 H Lactic Acid 1.8 Calcium 9.1 Total Bilirubin 0.60 Direct Bilirubin 0.15 AST 9 L ALT 16 Alkaline Phosphatase 74 Total Protein 7.4 Albumin 4.5 Globulin 2.9 Lipase 38 Serum , Qual NEGATIVE Radiography Diagnostic Testing: Clinical Impression(s) from Imaging Studies Abdomen/Pelvis CT 03/31/24 19:16 IMPRESSION: Antritis with probable focal antral wall ulcer. GERD. Bilateral ovarian cysts, 2.3 cm on the right and 1.4 cm on the left. Electronically Signed: Pavel Spivey MD at 21:50 EST Reading Location ID and State: formerly [facility] / [place] Tel , Service support , CT of the abdomen reveals a retroperitoneal perforation. The duodenum is thickened. Dr. Kim was consulted. She reviewed the films. She feels this is too complex for her to care for at [facility] and recommended transfer. Patient was made aware that the surgeon feels need to be transferred to a tertiary care hospital. She requested transfer to [facility]. [place] was asked to contact the transfer line. The nurse for the [facility] transfer line was contacted. She states she would yet be waitlisted and suspected 3-day wait. New line based on attempt to transfer someone earlier to [place] they do not have capacity and have patients waiting no emergency room for beds. Since the patient has been declined by 3 hospitalist the surgeon has been repaged to help make appropriate arrangements or take portion of the OR Radiologist read antritis with probable focal antral wall ulcer. I am in disagreement and so was Dr. Kim. There is retroperitoneal free air consistent with a perforation. History and physical exam is consistent with perforation. EKG Initial EKG: Attestation: I personally reviewed and interpreted this EKG as follows: Interpretation: Sinus Rhythm (Rate is 95. There is artifact at the computer screen is nonseptic ST-T wave changes. ME interval is under 58 ms. QS duration 86 ms. QT duration 280 ms. 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 NG was also ordered. Comments:: Dr. Kim informing that she spoke with Dr. Rodriguez general surgery [facility]. They do not feel comfortable excepting her since they have no ICU beds. Dr. Hernadez initiated transfer to [facility]. Dr. Kim informing that they would be contacting me in the emergency department. Critical Care Time Critical Care Time: Yes Critical care time (excluding procedures): 30-74 minutes (52), Including time spent: (History, physical, documentation, independent rotation laboratories alts, consultation with surgery), Discussing w/Patient &/or Family/Jig Operator (Informed patient of concern for perforated viscus. They were informed that the surgeon aerospace control and warning systems does not feel comfortable repairing this and would need to be transferred. They request a hospital in [place].), Discussing w/Consultants, Arranging Admission or Transfer and - (Conference call with Dr. Kim, transfer line and surgeon who accepted patient. She is to be admitted to the SICU) Discharge Plan Triage Chief Complaint: Abd Pain ED Provider: TomDrake Dx/Rx/DC Orders Clinical Impression: Pneumoperitoneum, Perforated duodenal bulb ulcer, Sinus tachycardia, Mottled skin Prescriptions: No Action naproxen 500 mg tablet 500 mg PO BID PRN (Reason: pain) Qty: 60 2RF omeprazole 40 mg capsule,delayed release(DR/EC) 40 mg PO DAILY Qty: 60 1RF Rx Instructions: Take 30 minutes before breakfast Qulipta 60 mg tablet 60 mg PO DAILY prednisone 10 mg tablet 10 mg PO DIRECTED Qty: 36 0RF Rx Instructions: see taper instructions 6 tabs x 2 days, 5 x 2 days, 4 x 2, 3 x 1, 2 x 1, 1 x 1 Primary Care Provider: Chary Sandoval Referrals: Chary Sandoval MD [Primary Care Provider] - Print Language: Luxembourger Disposition Disposition: Acute Care Hospital Discharge Location: [facility]
--- NOTE | 2024-03-31 19:16 | EKG12_ITS ---
Test Reason : DYSRHYTHMIA Blood Pressure : */* mmHG Vent. Rate : 95 BPM Atrial Rate : 95 BPM P-R Int : 158 ms QRS Dur : 86 ms QT Int : 380 ms P-R-T Axes : 31 61 29 degrees QTcB Int : 477 ms Normal sinus rhythm Nonspecific T wave abnormality Abnormal ECG Confirmed by PIETER BILLINGSLEY, HADLEY ([id number]), order editor SAE RUIZ ([id number]) on 04/04/2024 8:05:33 A M Referred By: Confirmed By: HADLEY STAPLETON MD
--- NOTE | 2024-03-31 19:16 | CT_ITS ---
INDICATION: Abdominal pain EXAMINATION: CT ABDOMEN AND PELVIS WITH CONTRAST - CT Abdomen And Pelvis W/ Contrast Injection TECHNIQUE: Helically acquired images were obtained of the abdomen and pelvis following IV contrast. A radiation dose optimization technique was used for this scan. IV Contrast dosage and agent: 100 cc [id number] Oral contrast: Yes. COMPARISON: 08/13/2021 FINDINGS: LOWER CHEST: Mild bibasilar dependent changes. No cardiomegaly or pericardial effusion. Oral contrast in the mildly distended lower esophagus. LIVER: Homogeneous. No focal mass. GALLBLADDER AND BILIARY TREE: No calcified gallstones. No gallbladder distension or wall edema. No intra- or extrahepatic biliary ductal dilation. PANCREAS: No focal cystic or solid mass. SPLEEN: Normal size without focal cystic or solid mass. ADRENAL GLANDS: No nodules. KIDNEYS AND URETERS: Uniform enhancement No hydronephrosis. PERITONEUM: No free air. Trace ascites in the right upper quadrant. BOWEL: Normal appendix. Abnormal thickening of the antral wall with small gas collection in the antral wall, overlying mild inflammatory stranding. LYMPH NODES: No enlarged mesenteric or retroperitoneal lymph nodes. VESSELS: Aorta is non-dilated. URINARY BLADDER: Nondistended. REPRODUCTIVE ORGANS: No pelvic masses. Bilateral ovarian cysts, 2.3 cm on the right 1.4 cm on the left. ABDOMINAL WALL: Small fat-containing umbilical hernia. BONES: Unremarkable. CT/Abdomen/Pelvis WITH Contrast IMPRESSION: Antritis with probable focal antral wall ulcer. GERD. Bilateral ovarian cysts, 2.3 cm on the right and 1.4 cm on the left. Electronically Signed: Pavel Spivey MD at 21:50 EST ,
[2024-03-31] MEDS: Morphine 4 MG/ML Syringe IV (19:20)
[2024-03-31] MEDS: 0.9% Normal Saline (1000mL) 1,000 ML 999 ML IV (19:20)
[2024-03-31] MEDS: Ondansetron 4 MG/2 ML Vial IV (19:20)
[2024-03-31 19:44] LABS: Absolute Lymphocyte Count 1.26 X10^3/uL (0.83-4.51); Basophil# 0.01 X10^3/uL; Basophil% 0.1 % (0-1); Eosinophil# 0.02 X10^3/uL; Eosinophils% 0.2 % (0-5); Hematocrit 37.6 % (37-47); Hemoglobin 12.3 g/dL (12.0-15.0); Lymphocyte # 1.26 X10^3/ul (0.83-4.51); Lymphocyte % 11.5 % (19-41); Mean Corp Hgb Conc 32.7 g/dL (32-36); Mean Corpuscular Hgb 29.6 pg (27.0-32.0); Mean Corpuscular Volume 90.4 fL (81-99); Mean Platelet Vol. 10.3 fl (6.2-12.0); Monocyte# 0.59 X10^3/uL; Monocyte% 5.4 % (0-10); NRBC Flagged by Analyzer 0 % (0-5); Neutrophil # 9.01 X10^3/uL (2.7-7.7); Neutrophil % 82.6 % (47-70); Platelet Count 218 K/mm3 (150-450); RBC Distribution Width CV 13.9 % (11.6-14.6); RBC Distribution Width SD 46.2 fl (35.1-43.9); Red Blood Count 4.16 M/mm3 (4.2-5.4); White Blood Count 10.9 K/mm3 (4.4-11.0)
[2024-03-31 19:58] LABS: Internal QC Validated? YES +Cl - CLEAR BKGD; Pregnancy, Serum, hCG Quali. NEGATIVE Negative; Record Kit Lot#, Serum Preg. 869294
[2024-03-31] MEDS: HYDROmorphone 0.5 MG/0.5 ML SYRINGE IV ×2 (20:01→22:13)
[2024-03-31 20:06] LABS: AST(SGOT) 9 U/L (15-37); Alanine Aminotransfer ALT/SGPT 16 U/L (13-56); Albumin, Serum 4.5 g/dL (3.2-5.0); Alkaline Phosphatase 74 U/L (45-117); Anion Gap 5 (5-15); BUN 14 mg/dL (7-18); BUN/Creat Ratio 15.8 RATIO (10-20); Bilirubin, Direct 0.15 mg/dL (0.00-0.30); Calcium,Total 9.1 mg/dL (8.5-10.1); Chloride 110 mmol/L (98-107); Creatinine, Serum 0.89 mg/dL (0.55-1.02); EST Glomerular Filtration Rate 76 mL/min (>60); Est Glom Filt Rate - Afr Amer 92 mL/min (>60); Estimated Creatinine Clearance 80.23 ml/min; Globulin 2.9 g/dL (2.2-4.2); Glucose 116 mg/dL (74-106); Lipase 38 U/L (13-75); Potassium 3.4 mmol/L (3.5-5.1); Protein, Total 7.4 g/dL (6.4-8.2); Sodium Level 142 mmol/L (136-145)
[2024-03-31 20:14] LABS: Lactic Acid 1.8 mmol/L (0.4-1.9)
--- NOTE | 2024-03-31 21:49 | EX.PCM.CON.S ---
Assessment & Plan Assessment/Plan (1) Pneumoperitoneum: (2) Perforated small intestine: PLAN: Plan Reviewed CT a/p- + pneumoperitoneum by anuja hepatis and second portion of duodenum; due to location of perforation would recommend transfer to tertiary care center. Did talk to Jerardo Hernadez - she would have accepted but due to diversion/trauma level 1; they have no ICU available if needed- called [facility]- transfer request already started by [facility]- they will call [place] [facility]. Official read did come back just called an ulcer however there is free air on CT on my read and Dr. Hernadez read. Isha Conde M.D. Pager: [phone] [facility] [address] [place] [address], Outpatient [place], [address] [place] [address] Office: [phone] HPI Consult Data Date of Consult: 03/31/24 HPI Narrative HPI Narrative: DIANNA PARRY, is a 38 F who presents due to severe epigastric abdominal pain started about 5 PM today. Patient states he ate couple hours before. Patient does take naproxen as taken at a couple times over the last couple days as she is on her. States she is always taking it with food. Patient used to be on omeprazole but had not had symptoms and not taking it for about a year. Patient denies any heartburn or reflux symptoms prior to pain beginning this evening. Patient CT abdomen pelvis showed thickening of the duodenum as well as pneumoperitoneum small air bubbles by the anuja hepatis as well as the second portion of the duodenum per my read?official read calls no pneumoperitoneum, antral ulcer. Patient has a normal white blood count with a left shift. Patient is getting NG in the ER and IV Zosyn and fluconazole along with IV Protonix. [facility] Medical History Physical exam, pre-employment Urticaria Acute right hip pain Obesity (BMI 30-39.9) Left hip pain Abdominal pain Screening for thyroid disorder Sacroiliitis Pain, joint, multiple sites Positive BRIONNA (antinuclear antibody) B12 deficiency Gastritis B12 deficiency Seizure disorder Migraine, unspecified, intractable, without status migrainosus Tension headache Migraines Seasonal allergies Home Medications ?Medication ?Instructions ?Recorded ?Last Taken ?Type naproxen 500 mg tablet 500 mg PO BID PRN pain #60 tabs 11/27/22 Unknown Rx omeprazole 40 mg capsule,delayed 40 mg PO DAILY #60 caps 04/14/23 Unknown Rx release atogepant 60 mg tablet (Qulipta) 60 mg PO DAILY 06/16/23 Unknown History prednisone 10 mg tablet 10 mg PO DIRECTED #36 tabs 06/16/23 Unknown Rx Allergy/AdvReac Type Severity Reaction Status Date / Time Latex, Natural Rubber Allergy Mild Rash Verified 03/31/24 19:01 duloxetine (From Cymbalta) Allergy tremors, Verified 03/31/24 19:01 rash Family History Grandfather Anxiety CVA (cerebral vascular accident) Mother Thyroid disorder Surgical History History of adenoidectomy History of tonsillectomy Social History household members: significant other and children Smoking Status: Never smoker Electronic Cigarette Use: not used second hand exposure: No alcohol intake: never substance use type: does not use what type of physical activity do you participate in: none ROS Constitutional Constitutional: Reports anorexia ENT HEENT: Denies dysphagia Cardiovascular Cardiovascular: Denies chest pain Respiratory/Chest Respiratory/Chest: Denies cough Gastrointestinal Gastrointestinal: Reports abdominal pain, nausea and vomiting; Denies constipation Genitourinary Genitourinary: Denies dysuria Physical Exam Const oriented x3 General Appearance: ill appearing Positive for acutely HEENT normocephalic Resp normal respiratory effort Cardio Rate: regular rate GI GI Narrative: Patient diffusely tender, involuntary guarding especially in the epigastric region Palpation: tender and guarding Extremity normal to inspection Skin no rashes or lesions noted Neuro CN's II-XII intact bilaterally Psych affect normal Lab / Micro Data 03/31/24 19:32 03/31/24 19:32 Labs: Laboratory Results - last 24 hr 03/31/24 19:32: WBC 10.9, RBC 4.16 L, Hgb 12.3, Hct 37.6, MCV 90.4, MCH 29.6, MCHC 32.7, RDW Std Deviation 46.2 H, RDW Coeff of Rashaun 13.9, Plt Count 218, MPV 10.3, Immature Gran % (Auto) 0.200, Neut % (Auto) 82.6 H, Lymph % (Auto) 11.5 L, [place] % (Auto) 5.4, Eos % (Auto) 0.2, Baso % (Auto) 0.1, Absolute Neuts (auto) 9.0 H, Absolute Lymphs (auto) 1.26, Nucleated RBC % 0, Sodium 142, Potassium 3.4 L, Chloride 110 H, Carbon Dioxide 27.0, Anion Gap 5, BUN 14, Creatinine 0.89, Estim Creat Clear Calc 80.23, Est GFR (MDRD) Af Amer 92, Est GFR (MDRD) Non-Af 76, BUN/Creatinine Ratio 15.8, Glucose 116 H, Lactic Acid 1.8, Calcium 9.1, Total Bilirubin 0.60, Direct Bilirubin 0.15, AST 9 L, ALT 16, Alkaline Phosphatase 74, Total Protein 7.4, Albumin 4.5, Globulin 2.9, Lipase 38, Serum , Qual NEGATIVE
[2024-03-31] MEDS: Pantoprazole Sodium 80 MG in 0.9% Normal Saline (50mL Bag) 15 ML 420 MG IV BOLUS (21:51)
[2024-03-31] MEDS: Piperacil/Tazobactam 4.5 GM in 0.9% Normal Saline (100mL MB+) 100 ML IV (22:02)
[2024-03-31] MEDS: Fluconazole IVPB 400 MG/200 ML BAG 100 MG IV (22:50)
--- NOTE | 2024-03-31 23:01 | RAD_ITS ---
INDICATION: NG placement EXAMINATION/TECHNIQUE: X-RAY - XR Abdomen 1 View COMPARISON: CT abdomen and pelvis same date FINDINGS: Enteric tube passes well into the stomach. No distended bowel loops. RAD/Abdomen Single View (Portable) IMPRESSION: Satisfactory NG tube placement. Electronically Signed: Pavel Spivey MD at 23:47 EST ,
[2024-04-01] VITALS (12 sets, daily range): BP systolic 119–136; BP diastolic 79–97; PULSE 97–110; RESP 15–24; TEMP 37.6; O2SAT 94–97
[2024-04-01] MEDS: HYDROmorphone 0.5 MG/0.5 ML SYRINGE IV ×3 (00:36→05:17)
[2024-04-01] MEDS: Ondansetron 4 MG/2 ML Vial IV (02:19)
--- NOTE | 2024-04-01 05:06 | ED.RN ---
Pt's mother advised of department per pt request.
== END 2024-04-01 05:26 | disposition short-term general hospital (02) ==
PROVIDERS: Emergency Provider Emergency Medicine; PCP Internal Medicine; Visit Provider Emergency Medicine
DX: K66.8 Other specified disorders of peritoneum (principal); K26.5 Chronic or unspecified duodenal ulcer with perforation; R00.0 Tachycardia, unspecified
CPT/HCPCS: 74018; 74177; 80048; 80076; 83605; 83690; 84703; 85025; 93005; 96365; 96366; 96367; 96375; 96376; 99285; J7030; J7040; Q9967; A4216; J2405; J3490